=== PATIENT | female | born 1960 | race Hispanic/Latino ===

== ENCOUNTER 2017-12-04 06:33 | Emergency (ER) | payer MEDICAID, OTHER ==
[2017-12-04 06:33] VITALS: BMI 27.3
[2017-12-04 06:45] VITALS: RESP 18; TEMP 98.2
[2017-12-04] MEDS ORDERED: Sodium Chloride 0.9% 1,000 ML IV STA (07:14)
[2017-12-04] MEDS ORDERED: Atrop/Hyosc/Scopal/PB Elixir (120 ml) PO STA (07:15)
[2017-12-04] MEDS ORDERED: Alum-Mag Hydrox-Simethicone Susp (30 mL) PO STA (07:15)
--- NOTE | 2017-12-04 07:24 | ED PDOC ---
Arrival/HPI - General Chief Complaint: Chest Pain Time Seen by Provider: 12/04/17 06:45 Historian: Patient - History of Present Illness Narrative History of Present Illness (Text): 12/04/17 07:05 57 year old female, whose PMH includes hypertension, COPD, TIA, and seizure disorder, who presents to the emergency department complaining of abdominal pain that radiates to her chest for two weeks. Patient reports symptoms being associated with nausea, vomiting, diarrhea, and appetite changes. She also reports having left lower back pain that is worse with movement. Additionally, she complaints of a headache, mainly in the back region. Patient admits to ETOH use 3 days ago and heroin use one day ago. She denies taking her Methadone medication for the past 4 days. PMD: Dr. Ron Time/Duration: > week Symptom Onset: Gradual Symptom Course: Unchanged Quality: Aching Past Medical History - Provider Review Nursing Documentation Reviewed: Yes - Infectious Disease Hx of Infectious Diseases: None - Tetanus Immunization Tetanus Immunization: Unknown - Cardiac Hx Cardiac Arrhythmia: No Hx Congestive Heart Failure: No Hx Hypertension: Yes Hx Mitral Valve Prolapse: No Hx Pacemaker: No Hx Peripheral Edema: No - Pulmonary Hx Asthma: No Hx Bronchitis: No Hx Chronic Obstructive Pulmonary Disease (COPD): Yes Hx Emphysema: No Hx Pneumonia: No Hx Sleep Apnea: No - Neurological Hx Alzheimer's Disease: No Hx Dementia: No Hx Migraine: No Hx Parkinson's Disease: No Hx Seizures: Yes Hx Transient Ischemic Attacks (TIA): Yes - HEENT Hx HEENT Disorder: Yes (USES CONTACTS AND GLASSES) - Renal Hx Renal Disorder: Yes Hx Kidney Stones: No - Endocrine/Metabolic Hx Hyperthyroidism: No Hx Hypothyroidism: No - Hematological/Oncological Hx Anemia: No Hx Sickle Cell Disease: No - Integumentary Hx Dermatological Disorder: No - Musculoskeletal/Rheumatological Hx Arthritis: No Hx Falls: No Hx Fractures: No Hx Osteoporosis: No - Gastrointestinal Hx Crohn's Disease: No Hx Diverticulitis: No Hx Gall Bladder Disease: No Hx Pancreatitis: No - Genitourinary/Gynecological Hx Sexually Transmitted Diseases: No - Psychiatric Hx Anxiety: Yes (ALCOHOL USE) Hx Bipolar Disorder: No Hx Depression: Yes Hx Post Traumatic Stress Disorder: No Hx Schizophrenia: No Hx Substance Use: Yes - Past Surgical History Past Surgical History: No Previous - Surgical History Hx Appendectomy: No Hx Cholecystectomy: No Hx Coronary Stent: No Hx Tonsillectomy: Yes - Anesthesia Hx Anesthesia: Yes Hx Anesthesia Reactions: No Hx Malignant Hyperthermia: No - Suicidal Assessment Feels Threatened In Home Enviroment: No Family/Social History - Physician Review Nursing Documentation Reviewed: Yes Family/Social History: Unknown Family HX Smoking Status: Light Smoker < 10 Cigarettes Daily Hx Alcohol Use: Yes Hx Substance Use: Yes Substance used: methadone Hx Substance Use Treatment: Yes (methadone) Allergies/Home Meds Allergies/Adverse Reactions: Allergies No Known Allergies Allergy (Verified 07/24/17 21:51) Home Medications: Home Meds Medication Instructions Recorded Confirmed Albuterol HFA [Ventolin HFA 90 1 puff INH DAILY 07/24/17 07/24/17 mcg/actuation (8 g)] Methadone [Methadose] 80 mg PO DAILY 07/24/17 07/24/17 Multivitamin [Multi-Vitamin Daily] 1 tab PO DAILY 07/24/17 07/24/17 Propranolol [Inderal] 40 mg PO BID 07/24/17 07/24/17 Review of Systems - Review of Systems Constitutional: absent: Fevers Eyes: absent: Vision Changes ENT: absent: Sore Throat Respiratory: absent: SOB, Cough Cardiovascular: Chest Pain Gastrointestinal: Abdominal Pain, Diarrhea, Nausea, Vomiting, Appetite Changes. absent: Constipation Genitourinary Female: absent: Dysuria, Frequency Musculoskeletal: Back Pain (lower left side) Skin: absent: Rash Neurological: Headache Endocrine: absent: Diaphoresis Physical Exam Vital Signs Reviewed: Yes Vital Signs Temp Pulse Resp BP Pulse Ox 12/04/17 10:00 78 18 150/104 H 95 12/04/17 08:33 82 18 148/104 H 96 12/04/17 06:41 98.2 F 68 18 146/105 H 96 Temperature: Afebrile Blood Pressure: Hypertensive Pulse: Regular Respiratory Rate: Normal Appearance: Positive for: Well-Appearing, Non-Toxic, Comfortable Pain Distress: None Mental Status: Positive for: Alert and Oriented X 3 - Systems Exam Head: Present: Atraumatic, Normocephalic Pupils: Present: PERRL Extroacular Muscles: Present: EOMI Conjunctiva: Present: Normal Mouth: Present: Dry Respiratory/Chest: Present: Clear to Auscultation, Good Air Exchange. No: Respiratory Distress, Accessory Muscle Use, Wheezes, Rales, Retracting, Rhonchi Cardiovascular: Present: Regular Rate and Rhythm, Normal S1, S2. No: Murmurs Abdomen: Present: Tenderness (epigastric), Normal Bowel Sounds, Guarding. No: Distention, Peritoneal Signs, Rebound Back: Present: Normal Inspection. No: CVA Tenderness, Midline Tenderness, Paraspinal Tenderness Upper Extremity: Present: Normal Inspection, Normal ROM, Neurovascularly Intact , Capillary Refill < 2s. No: Cyanosis, Edema Lower Extremity: Present: Normal Inspection, Normal ROM. No: Edema, Tenderness , Swelling Neurological: Present: GCS=15, CN II-XII Intact, Speech Normal, Normal Sensory Function, Other (no tremors) Skin: Present: Warm, Dry, Normal Color. No: Rashes Psychiatric: Present: Alert, Oriented x 3, Normal Insight, Normal Concentration Medical Decision Making ED Course and Treatment: 12/04/17 Impression: 57 year old female with epigastric tenderness and guarding, and dry mucous membrane on exam, complaining of abdominal pain radiating to chest for two weeks. Differential Diagnosis included but are not limited to: gastritis vs. pancreatitis vs. dehydration Plan: -- EKG -- Labs -- Urinalysis -- , Lidocaine, Pepcid, Reglan, Maalox and Sodium Chloride -- Reassess and disposition Progress Notes: 12/04/17 09:35 Chest X-ray: Creator : Spenser Rueda MD COMPARISON: 06/27/2016 FINDINGS: LUNGS: No active pulmonary disease. PLEURA: No significant pleural effusion identified, no pneumothorax apparent. CARDIOVASCULAR: Normal. OSSEOUS STRUCTURES: No significant abnormalities. VISUALIZED UPPER ABDOMEN: Normal. OTHER FINDINGS: None. IMPRESSION: No active disease. 12/04/17 11:22 Patient's labs reviewed. Lipase mildly elevated. Patient has been treated with 1 Liter IVF. She improved with medications and hydration. Patient is tolerating PO fluids. She will follow up with her primary care doctor in 1-2days. - Lab Interpretations Lab Results: 12/04/17 08:00 12/04/17 08:30 Lab Results 12/04/17 08:50: Urine Color Light yellow, Urine Appearance Clear, Urine pH 7.0, Ur Specific [place] 1.010, Urine Protein Negative, Urine Glucose (UA) Negative, Urine Ketones Negative, Urine Blood Negative, Urine Nitrate Negative, Urine Bilirubin Negative, Urine Urobilinogen 0.2, Ur Leukocyte Esterase Negative 12/04/17 08:30: Sodium 142, Potassium 3.9, Chloride 108 H, Carbon Dioxide 24, Anion Gap 14, BUN 4 L, Creatinine 0.5 L, Est GFR ( Amer) > 60, Est GFR ( Non-Af Amer) > 60, Random Glucose 154 H, Calcium 8.9, Total Bilirubin 1.3, AST 104 H, ALT 57 H, Alkaline Phosphatase 156 H, Lactate Dehydrogenase 724 H, Total Creatine Kinase 52, Troponin I < 0.01, Total Protein 8.2, Albumin 3.4, Globulin 4.8, Albumin/Globulin Ratio 0.7 L, Lipase 350 H 12/04/17 08:00: PT 15.9 H, INR 1.37 H, APTT 37.6 H 12/04/17 08:00: WBC 3.3 L D, RBC 4.88, Hgb 15.7, Hct 44.2, MCV 90.6, MCH 32.2, MCHC 35.5, RDW 14.0, Plt Count 73 L, Gran % 59.1, Lymph % (Auto) 21.5 L, [place] % (Auto) 15.2 H, Eos % (Auto) 3.6, Baso % (Auto) 0.6, Gran # 1.95, Lymph # (Auto) 0.7 L, [place] # (Auto) 0.5, Eos # (Auto) 0.1, Baso # (Auto) 0.02 I have reviewed the lab results: Yes - RAD Interpretation Radiology Orders: 12/04/17 07:54 CXR [CHEST PORTABLE] [RAD] Stat - EKG Interpretation Interpreted by ED Physician: Yes Type: 12 lead EKG - Medication Orders Current Medication Orders: Discontinued Medications Al Hydrox/Mg Hydrox/Simethicone (Maalox Plus 30 Ml) 30 ml PO STAT STA Stop: 12/04/17 07:16 Last Admin: 12/04/17 07:51 Dose: 30 ml Belladonna/Phenobarbital ( Elixir) 5 ml PO STAT STA Stop: 12/04/17 07:16 Last Admin: 12/04/17 07:51 Dose: 5 ml Famotidine (Pepcid) 20 mg IVP STAT STA Stop: 12/04/17 07:15 Last Admin: 12/04/17 08:17 Dose: 20 mg IVP Administration Document 12/04/17 08:17 [facility] (Rec: 12/04/17 08:17 [facility] [id number]) Charges for Administration # of IVP Administrations 1 Sodium Chloride (Sodium Chloride 0.9%) 1,000 mls @ 1,000 mls/hr IV .Q1H STA Stop: 12/04/17 08:13 Last Admin: 12/04/17 08:16 Dose: 1,000 mls/hr eMAR Start Stop Document 12/04/17 08:16 [facility] (Rec: 12/04/17 08:17 [facility] [id number]) Intravenous Solution Start Date 12/04/17 Start Time 08:17 End Date 12/04/17 End time 09:17 Total Infusion Time 60 Lidocaine HCl (Lidocaine 2% Viscous) 15 ml PO STAT STA Stop: 12/04/17 07:16 Last Admin: 12/04/17 07:51 Dose: 15 ml Lorazepam (Ativan) 1 mg IVP ONCE ONE PRN Reason: Protocol Stop: 12/04/17 08:15 Last Admin: 12/04/17 08:36 Dose: 1 mg IVP Administration Document 12/04/17 08:36 [facility] (Rec: 12/04/17 08:36 [facility] [id number]) Charges for Administration # of IVP Administrations 1 Metoclopramide HCl (Reglan) 10 mg IVP STAT STA Stop: 12/04/17 07:16 Last Admin: 12/04/17 08:17 Dose: 10 mg IVP Administration Document 12/04/17 08:17 [facility] (Rec: 12/04/17 08:17 [facility] [id number]) Charges for Administration # of IVP Administrations 1 - Scribe Statement The provider has reviewed the documentation as recorded by the Alyssa Parra Provider Scribe Attestation: All medical record entries made by the Scribe were at my direction and personally dictated by me. I have reviewed the chart and agree that the record accurately reflects my personal performance of the history, physical exam, medical decision making, and the department course for this patient. I have also personally directed, reviewed, and agree with the discharge instructions and disposition. Disposition/Present on Arrival - Present on Arrival Any Indicators Present on Arrival: No History of DVT/PE: No History of Uncontrolled Diabetes: No Urinary Catheter: No History of Decub. Ulcer: No History Surgical Site Infection Following: None - Disposition Have Diagnosis and Disposition been Completed?: Yes Diagnosis: Pancreatitis, Back pain, Headache, Dehydration Disposition: HOME/ ROUTINE Disposition Time: 11:00 Patient Plan: Discharge Patient Problems: Current Active Problems Problem Status Onset Back pain Acute Dehydration Acute Headache Acute Pancreatitis Acute Condition: IMPROVED Discharge Instructions (ExitCare): Tension Headache, Pancreatitis (DC) Additional Instructions: Ms Burnette, thank you for letting us take care of you today. Your provider was Dr. Amaro. You were treated for Pancreatitis, Dehydration, Headache. The emergency medical care you received today was directed at your acute symptoms. If you were prescribed any medication, please fill it and take as directed. It may take several days for your symptoms to resolve. Return to the Emergency Department if your symptoms worsen, do not improve, or if you have any other problems. Please contact your doctor or call one of the physicians/clinics you have been referred to that are listed on the Patient Visit Information form that is included in your discharge packet. Bring any paperwork you were given at discharge with you along with any medications you are taking to your follow up visit. Our treatment cannot replace ongoing medical care by a primary care provider (PCP) outside of the emergency department. Thank you for allowing the [facility] team to be part of your care today. If you had an X-Ray or CT scan: A Radiologist will review the ED reading if any change in treatment is needed we will contact you. If you had a blood, urine, or wound culture: It will take several days for the results, if any change in treatment is needed we will contact you. If you had an STI test: It will take 48 hours for the results. Please call after 1 week if you have not heard back. Referrals: Shalini Anand MD [Family Provider] - Follow up with primary Forms: [employer] ([place]ian), WORK NOTE
[2017-12-04 08:24] LABS: BASO # 0.02 K/mm3 (0.0-2.0); BASO % 0.6 % (0.0-3.0); EOS # 0.1 (0.0-0.7); EOS % 3.6 % (1.5-5.0); GRAN # 1.95 (1.4-6.5); GRAN % 59.1 % (50.0-68.0); HEMOGLOBIN 15.7 g/dL (12.0-16.0); LYMPH # 0.7 (1.2-3.4); LYMPH % 21.5 % (22.0-35.0); MEAN CELL VOLUME 90.6 fl (80.0-105.0); MEAN CORPUSCULAR HEMOGLOBIN 32.2 pg (25.0-35.0); MEAN CORPUSCULAR HGB CONC 35.5 g/dl (31.0-37.0); MONO # 0.5 (0.1-0.6); MONO % 15.2 % (1.0-6.0); PLATELET COUNT 73 10^3/uL (120.0-450.0); RBC 4.88 10^6/uL (3.5-6.1); WHITE BLOOD COUNT 3.3 10^3/ul (4.5-11.0)
[2017-12-04 08:39] LABS: INR 1.37 (0.93-1.08); PARTIAL THROMBOPLASTIN TIME 37.6 Seconds (25.1-36.5); PROTHROMBIN TIME 15.9 SECONDS (9.4-12.5)
[2017-12-04 08:47] LABS: ALB/GLOB RATIO 0.7 (1.1-1.8); ALBUMIN 3.4 g/dL (3.0-4.8); ALT/SGPT 57 U/L (7-56); AST/SGOT 104 U/L (14-36); BLOOD UREA NITROGEN 4 mg/dL (7-21); CALCIUM 8.9 mg/dL (8.4-10.5); GFR AFRICAN-AMERICAN > 60; GFR NON-AFRICAN AMERICAN > 60; LIPASE 350 U/L (23-300)
[2017-12-04 08:58] LABS: TROPONIN I < 0.01 ng/mL
[2017-12-04 09:26] LABS: URINE BILIRUBIN NEGATIVE (NEGATIVE); URINE BLOOD NEGATIVE (NEGATIVE); URINE GLUCOSE (UA) NEGATIVE (NEGATIVE); URINE LEUKOCYTE ESTERASE NEGATIVE Leu/uL (NEGATIVE); URINE PROTEIN NEGATIVE mg/dL (<30 mg/dL); URINE UROBILINOGEN 0.2 E.U./dL (<1 E.U./dL)
[2017-12-04 09:27] LABS: URINE APPEARANCE CLEAR (CLEAR); URINE COLOR LIGHT YELLOW (YELLOW)
--- NOTE | 2017-12-04 09:36 | RAD ---
HISTORY: abd / chest pain COMPARISON: 06/27/2016 FINDINGS: LUNGS: No active pulmonary disease. PLEURA: No significant pleural effusion identified, no pneumothorax apparent. CARDIOVASCULAR: Normal. OSSEOUS STRUCTURES: No significant abnormalities. VISUALIZED UPPER ABDOMEN: Normal. OTHER FINDINGS: None. IMPRESSION: No active disease.
[2017-12-04 11:33] VITALS: BP 150/104; PULSE 78; O2SAT 95
--- NOTE | 2017-12-04 17:27 | CARD ---
APPROVED REPORT EKG Measurement Heart [id number] <Conclusion> Normal sinus rhythm Left anterior fascicular block Possible Inferior infarct, age undetermined Anterior infarct, age undetermined Abnormal ECG
== END 2017-12-04 11:40 | disposition home or self-care (01) ==
LOC: ED 06:33
DX: K85.90 Acute pancreatitis without necrosis or infection, unspecified (principal); R51 Headache; E86.0 Dehydration; M54.9 Dorsalgia, unspecified; I10 Essential (primary) hypertension; Z86.73 Personal history of transient ischemic attack (TIA), and cerebral infarction without residual deficits; F17.210 Nicotine dependence, cigarettes, uncomplicated
CPT/HCPCS: 71045; 80053; 81003; 82550; 83615; 83690; 84484; 85025; 85610; 85730; 93005; 96361; 96374; 96375; 99284; J2060; J2765; J7040

== ENCOUNTER 2017-12-14 10:27 | Inpatient (IN) | payer OTHER ==
[2017-12-14 10:40] VITALS: BMI 26.6
--- NOTE | 2017-12-14 10:44 | ED PDOC ---
Arrival/HPI - General Time Seen by Provider: 12/14/17 10:40 Historian: Patient - History of Present Illness Narrative History of Present Illness (Text): 12/14/17 10:44 Marily Burnette is a 57 year old female, whose past medical history includes Stage IV cirrhosis, hepatitis C, alcohol abuse, chronic opiate abuse, esophageal varices, peptic ulcer disease, seizure disorder, CKD, COPD, anxiety, HTN, who presents to the ED complaining of left arm, and left sided HARTMAN since last night. Patient stated while walking down steps at front on his building, part of the step was broken, which caused her to fall. Patient stated she LOC for few seconds. She stated she got up, and she went back home. She stated she has been applying a cold compress on left shoulder, but pain has worsen today. Time/Duration: Other (see hpi) Quality: Aching Context: Home Past Medical History - Provider Review Nursing Documentation Reviewed: Yes - Infectious Disease Hx of Infectious Diseases: None - Tetanus Immunization Tetanus Immunization: Unknown - Cardiac Hx Cardiac Arrhythmia: No Hx Congestive Heart Failure: No Hx Hypertension: Yes Hx Mitral Valve Prolapse: No Hx Pacemaker: No Hx Peripheral Edema: No - Pulmonary Hx Asthma: No Hx Bronchitis: No Hx Chronic Obstructive Pulmonary Disease (COPD): Yes Hx Emphysema: No Hx Pneumonia: No Hx Sleep Apnea: No - Neurological Hx Alzheimer's Disease: No Hx Dementia: No Hx Migraine: No Hx Parkinson's Disease: No Hx Seizures: Yes Hx Transient Ischemic Attacks (TIA): Yes - HEENT Hx HEENT Disorder: Yes (USES CONTACTS AND GLASSES) - Renal Hx Renal Disorder: Yes Hx Kidney Stones: No - Endocrine/Metabolic Hx Hyperthyroidism: No Hx Hypothyroidism: No - Hematological/Oncological Hx Anemia: No Hx Sickle Cell Disease: No - Integumentary Hx Dermatological Disorder: No - Musculoskeletal/Rheumatological Hx Arthritis: No Hx Falls: No Hx Fractures: No Hx Osteoporosis: No - Gastrointestinal Hx Crohn's Disease: No Hx Diverticulitis: No Hx Gall Bladder Disease: No Hx Pancreatitis: No - Genitourinary/Gynecological Hx Sexually Transmitted Diseases: No - Psychiatric Hx Anxiety: Yes (ALCOHOL USE) Hx Bipolar Disorder: No Hx Depression: Yes Hx Post Traumatic Stress Disorder: No Hx Schizophrenia: No Hx Substance Use: Yes - Past Surgical History Past Surgical History: No Previous - Surgical History Hx Appendectomy: No Hx Cholecystectomy: No Hx Coronary Stent: No Hx Tonsillectomy: Yes - Anesthesia Hx Anesthesia: Yes Hx Anesthesia Reactions: No Hx Malignant Hyperthermia: No - Suicidal Assessment Feels Threatened In Home Enviroment: No Family/Social History - Physician Review Nursing Documentation Reviewed: Yes Family/Social History: Other (noncontributory) Smoking Status: Light Smoker < 10 Cigarettes Daily Hx Alcohol Use: Yes Hx Substance Use: Yes Substance used: methadone Hx Substance Use Treatment: Yes (methadone) Allergies/Home Meds Allergies/Adverse Reactions: Allergies No Known Allergies Allergy (Verified 07/24/17 21:51) Home Medications: Home Meds Medication Instructions Recorded Confirmed Propranolol [Inderal] 40 mg PO BID 07/24/17 12/14/17 Methadone [Methadose] 45 mg PO DAILY 12/14/17 Review of Systems - Review of Systems Constitutional: Normal. absent: Fatigue, Weight Change, Fevers, Night Sweats Eyes: Normal ENT: Normal Respiratory: Normal. absent: SOB, Cough Cardiovascular: Normal. absent: Chest Pain, Palpitations Gastrointestinal: Normal. absent: Abdominal Pain, Nausea, Vomiting Genitourinary Female: Normal Musculoskeletal: Other (see hpi) Skin: Normal Neurological: absent: Headache, Dizziness, Focal Weakness, Gait Changes, Speech Changes, Facial Droop, Disequilibrium, Seizure Endocrine: Normal Hemo/Lymphatic: Normal Psychiatric: Normal Physical Exam Vital Signs Temp Pulse Resp BP Pulse Ox 12/14/17 15:05 99.1 F 74 16 183/95 H 96 12/14/17 14:31 98.8 F 74 18 124/48 L 98 12/14/17 12:06 76 18 151/99 H 96 12/14/17 10:45 99.0 F 79 18 126/57 L 96 Temperature: Afebrile Blood Pressure: Normal Pulse: Regular Respiratory Rate: Normal Appearance: Positive for: Well-Appearing, Non-Toxic, Comfortable Pain Distress: None Mental Status: Positive for: Alert and Oriented X 3 - Systems Exam Head: Present: Normocephalic, Ecchymosis, Laceration ((+) healing left supraorbital laceration with mild surrounding ecchymosis) Pupils: Present: PERRL Extroacular Muscles: Present: EOMI. No: Entrapment Conjunctiva: Present: Normal. No: Injected Ears: Present: Normal, NORMAL TM, Other (no hemotympanum) Mouth: Present: Moist Mucous Membranes, Normal Lips, Normal Tounge. No: Drooling Pharnyx: Present: Normal. No: ERYTHEMA, EXUDATE, TONSILS ENLARGED Nose (External): Present: Atraumatic Nose (Internal): Present: Normal Inspection. No: Epistaxis Neck: Present: Normal Range of Motion, Trachea Midline. No: Meningeal Signs, MIDLINE TENDERNESS, Paraspinal Tenderness, Lymphadenopathy Respiratory/Chest: Present: Clear to Auscultation, Good Air Exchange. No: Respiratory Distress, Accessory Muscle Use, Wheezes, Decreased Breath Sounds, Rales, Retracting, Rhonchi, Tender to Palpation Cardiovascular: Present: Regular Rate and Rhythm, Normal S1, S2. No: Murmurs Abdomen: No: Tenderness, Distention, Peritoneal Signs Back: Present: Normal Inspection, Midline Tenderness, Paraspinal Tenderness ( mild b/l paravertebral tenderness. No vertebral step off. No vertebral point tenderness). No: CVA Tenderness Upper Extremity: Present: Normal ROM, Tenderness, Swelling, Neurovascularly Intact, Capillary Refill < 2s, Other ((+) left shoulder appears swollen. (+) left shoulder and proximal arm tenderness. No compartment syndrome.). No: Cyanosis, Edema, Erythema, Temperature Abnormalties, Deformity Lower Extremity: Present: Normal Inspection, NORMAL PULSES, Normal ROM, Neurovascularly Intact, Capillary Refill < 2 s. No: Edema, CALF TENDERNESS Neurological: Present: GCS=15, CN II-XII Intact, Speech Normal, Motor Func Grossly Intact, Normal Sensory Function, Normal Cerebellar Funct, Gait Normal Skin: Present: Warm, Dry, Normal Color. No: Rashes Psychiatric: Present: Alert, Oriented x 3, Normal Insight, Normal Concentration Medical Decision Making ED Course and Treatment: 12/14/17 14:[address] Mcguire Hospitalist regarding humerus fracture with dislocated shoulder. Dr. Bernardo recommended admission, and OR procedure. Patient osbaldo richards was at [address] Mcguire recommended Remote Telemetry. Re-evaluation Time: 14:40 Reassessment Condition: Re-examined, Improving,but remains with symptoms - Lab Interpretations Lab Results: 12/14/17 13:40 12/14/17 13:40 Lab Results 12/14/17 13:40: Blood Type A POSITIVE, Antibody Screen Negative, BBK History Checked Patient has bt 12/14/17 13:40: Alcohol, Quantitative 70 H 12/14/17 13:40: Sodium 134, Potassium 4.3, Chloride 97 L, Carbon Dioxide 24, Anion Gap 17, BUN 10, Creatinine 0.6 L, Est GFR ( Amer) > 60, Est GFR ( Non-Af Amer) > 60, Random Glucose 144 H, Calcium 8.7, Total Bilirubin 2.4 H, AST 135 H D, ALT 66 H, Alkaline Phosphatase 116, Total Protein 9.0 H, Albumin 3.9, Globulin 5.1, Albumin/Globulin Ratio 0.8 L 12/14/17 13:40: WBC 8.7 D, RBC 4.50, Hgb 14.4, Hct 40.7, MCV 90.4, MCH 32.0, MCHC 35.4, RDW 14.0, Plt Count 103 L, MPV 11.8 H, Gran % 73.9 H, Lymph % (Auto) 14.4 L, Culberson % (Auto) 11.5 H, Eos % (Auto) 0.1 L, Baso % (Auto) 0.1, Gran # 6.39 , Lymph # (Auto) 1.3, [place]berson # (Auto) 1.0 H, Eos # (Auto) 0.0, Baso # (Auto) 0.01 12/14/17 12:45: PT 16.7 H, INR 1.44 H, APTT 36.9 H I have reviewed the lab results: Yes Interpretation: No clinic. lab abnormalty - RAD Interpretation Narrative RAD Interpretations (Text): 12/14/17 14:41 PROCEDURE: CT HEAD WITHOUT CONTRAST. HEMORRHAGE: No intracranial hemorrhage. BRAIN: Arteaga-white matter differentiation is preserved. There is no mass, mass effect or abnormal extra-axial fluid collection. There is no territorial infarction. There is a stable perivascular space in the left basal ganglia. VENTRICLES: The ventricles are normal in size, shape and configuration. CALVARIUM: There is no calvarial fracture or extracranial soft tissue swelling. PARANASAL SINUSES: Predominantly clear. MASTOID AIR CELLS: Predominantly clear go. OTHER FINDINGS: None. IMPRESSION: No acute intracranial abnormality. 12/14/17 14:42 PROCEDURE: CT Cervical Spine without contrast FINDINGS: VERTEBRAE: No fracture. Rotary scoliosis identified. No destructive bony lesion. DISCS/SPINAL CANAL/NEURAL FORAMINA: Multilevel degenerative changes C5-6 and C6-7. Discs heights are grossly preserved. PARASPINAL SOFT TISSUES: Unremarkable. OTHER FINDINGS: There is asymmetry in the supraclavicular -scalene region/thoracic inlet on the left which may represent adenopathy. Please refer to axial series 2, images 55- 71. The findings are confirmed on the coronal images. Correlation with physical examination is advised and if clinically indicated contrast-enhanced CT of the thorax is recommended follow-up procedure. The findings were not apparent on a remote CT of the thorax performed 10/29/2014 IMPRESSION: No acute findings with respect to the cervical spine. Left supraclavicular/ scalene mass, follow-up advised as described above including contrast-enhanced CT of the neck, thoracic inlet region. Correlation with physical examination. 12/14/17 14:43 PROCEDURE: CT Lumbar Spine without contrast FINDINGS: VERTEBRAE: There is normal alignment of the lumbar vertebral bodies. There normal lumbar lordosis. There is no acute fracture, spondylolysis or spondylolisthesis. There is diffuse bone demineralization. DISCS/SPINAL CANAL/NEURAL FORAMINA: Evaluation of the, conus medullaris and nerve roots of cauda equina is limited on noncontrast CT examination. Allowing for this there is desiccation of the L4 -5 and L5-S1 discs. L1-2: No large disc herniation, neural foraminal or spinal canal stenosis. L2-3: No large disc herniation, neural foraminal or spinal canal stenosis. L3-4: Diffuse posterior disc bulge without central spinal canal stenosis. And moderate bilateral facet arthropathy contribute to moderate neural foraminal narrowing. L4-5: Diffuse posterior disc bulge indents the ventral thecal sac with mild spinal canal stenosis. Moderate bilateral facet arthropathy contribute to severe neural foraminal narrowing. L5-S1: Diffuse posterior disc bulge without central spinal canal stenosis. Moderate right and severe left facet arthropathy contribute to moderate to severe neural foraminal stenosis, worse on the left. PARASPINAL SOFT TISSUES: The paraspinous soft tissues are normal. OTHER FINDINGS: None. IMPRESSION: 1. No acute fracture, spondylolysis or spondylolisthesis. 2. Multilevel degenerative disc disease, worse at L4-5 with severe bilateral neural foraminal narrowing and mild spinal canal stenosis. Radiology Orders: 12/14/17 10:40 HEAD W/O CONTRAST [CT] Stat 12/14/17 10:41 HUMERUS LT FALL PROTOCOL [RAD] Stat SHOULDER LEFT [RAD] Stat 12/14/17 10:42 CERVICAL SPINE W/O CONTRAST [CT] Stat LUMBAR SPINE W/O CONTRAST [CT] Stat FOREARM LEFT [RAD] Stat - EKG Interpretation Interpreted by ED Physician: Yes (NSR @ [address] changes) Type: 12 lead EKG Comparison: No previous EKG avail. - Medication Orders Current Medication Orders: Discontinued Medications Bupivacaine HCl (Marcaine 0.5%) 2 ml IJ STAT STA Stop: 12/14/17 13:27 Midazolam HCl (Versed Inj) 2 mg IVP STAT STA Stop: 12/14/17 14:08 Last Admin: 12/14/17 14:10 Dose: Morphine Sulfate (Morphine) 4 mg IM STAT STA Stop: 12/14/17 11:04 Last Admin: 12/14/17 11:18 Dose: 4 mg CODY Pain Assessment Document 12/14/17 11:18 JEFFREY (Rec: 12/14/17 11:19 JEFFREY [id number]) Pain Reassessment Is this a pain reassessment? No Sleep Is patient sleeping during reassessment? No Presence of Pain Presence of Pain Yes Pain Scale Used Pain Scale Used Numeric Description Description Intermittent Intensity of Pain at present 10 IM Administration Charges Document 12/14/17 11:18 JEFFREY (Rec: 12/14/17 11:19 JEFFREY [id number]) Charges for Administration # of IM Administrations 1 Re-Assess: MAR Pain Assessment Document 12/14/17 12:18 JEFFREY (Rec: 12/14/17 14:45 JEFFREY [id number]) Pain Reassessment Is this a pain reassessment? Yes Sleep Is patient sleeping during reassessment? No Presence of Pain Presence of Pain Yes Pain Scale Used Pain Scale Used Numeric Description Description Intermittent Intensity of Pain at present 8 Morphine Sulfate (Morphine) 8 mg IVP STAT STA Stop: 12/14/17 12:47 Last Admin: 12/14/17 13:11 Dose: 8 mg MAR Pain Assessment Document 12/14/17 13:11 JEFFREY (Rec: 12/14/17 13:12 JEFFREY [id number]) Pain Reassessment Is this a pain reassessment? No Sleep Is patient sleeping during reassessment? No Presence of Pain Presence of Pain Yes Pain Scale Used Pain Scale Used Numeric Description Description Intermittent Intensity of Pain at present 8 IVP Administration Document 12/14/17 13:11 JEFFREY (Rec: 12/14/17 13:12 JEFFREY [id number]) Charges for Administration # of IVP Administrations 1 Re-Assess: CODY Pain Assessment Document 12/14/17 14:11 JEFFREY (Rec: 12/14/17 14:46 JEFFREY [id number]) Pain Reassessment Is this a pain reassessment? Yes Sleep Is patient sleeping during reassessment? No Presence of Pain Presence of Pain Yes Pain Scale Used Pain Scale Used Numeric Description Description Intermittent Intensity of Pain at present 5 Ondansetron HCl (Zofran Odt) 4 mg PO STAT STA Stop: 12/14/17 11:05 Last Admin: 12/14/17 11:18 Dose: 4 mg Ondansetron HCl (Zofran Odt) 4 mg PO STAT STA Stop: 12/14/17 12:47 Last Admin: 12/14/17 13:12 Dose: 4 mg Tetanus/Reduced Diphtheria/Acell Pertussis (Boostrix Vaccine Inj) 0.5 ml IM .ONCE ONE Stop: 12/14/17 10:50 Last Admin: 12/14/17 11:19 Dose: 0.5 ml Immunization Registry Document 12/14/17 11:19 JEFFREY (Rec: 12/14/17 11:19 JEFFREY [id number]) Immunization Registry Consent Date 07/24/17 Disposition/Present on Arrival - Present on Arrival Any Indicators Present on Arrival: No History of DVT/PE: No History of Uncontrolled Diabetes: No Urinary Catheter: No History Surgical Site Infection Following: None - Disposition Have Diagnosis and Disposition been Completed?: Yes Diagnosis: Shoulder dislocation, Greater tuberosity of humerus fracture, Intractable pain , Alcohol abuse Disposition: HOSPITALIZED Disposition Time: 14:46 Patient Plan: Admission Condition: STABLE
[2017-12-14] MEDS ORDERED: TDAP Vaccine 0.5 mL Syr IM ONE (10:49)
[2017-12-14] MEDS ORDERED: Morphine 4 mg/ml ISec IM STA (11:03)
[2017-12-14] MEDS ORDERED: Morphine 4 mg/ml ISec ONE (11:18)
[2017-12-14] MEDS ORDERED: Morphine 4 mg/ml ISec IVP STA (12:46)
--- NOTE | 2017-12-14 12:47 | CT ---
PROCEDURE: CT HEAD WITHOUT CONTRAST. HISTORY: Headache s/p trauma COMPARISON: 11/25/2015. TECHNIQUE: Axial computed tomography images were obtained through the head/brain without intravenous contrast. Radiation dose: Total exam DLP = 993.12 mGy-cm. This CT exam was performed using one or more of the following dose reduction techniques: Automated exposure control, adjustment of the mA and/or kV according to patient size, and/or use of iterative reconstruction technique. FINDINGS: HEMORRHAGE: No intracranial hemorrhage. BRAIN: Arteaga-white matter differentiation is preserved. There is no mass, mass effect or abnormal extra-axial fluid collection. There is no territorial infarction. There is a stable perivascular space in the left basal ganglia. VENTRICLES: The ventricles are normal in size, shape and configuration. CALVARIUM: There is no calvarial fracture or extracranial soft tissue swelling. PARANASAL SINUSES: Predominantly clear. MASTOID AIR CELLS: Predominantly clear go. OTHER FINDINGS: None. IMPRESSION: No acute intracranial abnormality.
--- NOTE | 2017-12-14 12:59 | CT ---
PROCEDURE: CT Cervical Spine without contrast HISTORY: Posttraumatic pain COMPARISON: 10/29/2014 CT chest abdomen pelvis. No recent cross-sectional imaging studies no plain film radiographs of the neck. TECHNIQUE: Axial computed tomography images were obtained of the cervical spine without the use of intravenous contrast. Coronal and sagittal reformatted images were created and reviewed. Radiation dose: Total exam DLP = 446.51 mGy-cm. This CT exam was performed using one or more of the following dose reduction techniques: Automated exposure control, adjustment of the mA and/or kV according to patient size, and/or use of iterative reconstruction technique. FINDINGS: VERTEBRAE: No fracture. Rotary scoliosis identified. No destructive bony lesion. DISCS/SPINAL CANAL/NEURAL FORAMINA: Multilevel degenerative changes C5-6 and C6-7. Discs heights are grossly preserved. PARASPINAL SOFT TISSUES: Unremarkable. OTHER FINDINGS: There is asymmetry in the supraclavicular -scalene region/thoracic inlet on the left which may represent adenopathy. Please refer to axial series 2, images 55-71. The findings are confirmed on the coronal images. Correlation with physical examination is advised and if clinically indicated contrast-enhanced CT of the thorax is recommended follow-up procedure. The findings were not apparent on a remote CT of the thorax performed 10/29/2014 IMPRESSION: No acute findings with respect to the cervical spine. Left supraclavicular/ scalene mass, follow-up advised as described above including contrast-enhanced CT of the neck, thoracic inlet region. Correlation with physical examination.
--- NOTE | 2017-12-14 13:07 | CT ---
PROCEDURE: CT Lumbar Spine without contrast HISTORY: Pain, s/p fall COMPARISON: None. TECHNIQUE: Axial computed tomography images were obtained of the lumbar spine without the use of intravenous contrast. Coronal and sagittal reformatted images were created and reviewed. Radiation dose: Total exam DLP = 627.41 mGy-cm. This CT exam was performed using one or more of the following dose reduction techniques: Automated exposure control, adjustment of the mA and/or kV according to patient size, and/or use of iterative reconstruction technique. FINDINGS: VERTEBRAE: There is normal alignment of the lumbar vertebral bodies. There normal lumbar lordosis. There is no acute fracture, spondylolysis or spondylolisthesis. There is diffuse bone demineralization. DISCS/SPINAL CANAL/NEURAL FORAMINA: Evaluation of the, conus medullaris and nerve roots of cauda equina is limited on noncontrast CT examination. Allowing for this there is desiccation of the L4-5 and L5-S1 discs. L1-2: No large disc herniation, neural foraminal or spinal canal stenosis. L2-3: No large disc herniation, neural foraminal or spinal canal stenosis. L3-4: Diffuse posterior disc bulge without central spinal canal stenosis. And moderate bilateral facet arthropathy contribute to moderate neural foraminal narrowing. L4-5: Diffuse posterior disc bulge indents the ventral thecal sac with mild spinal canal stenosis. Moderate bilateral facet arthropathy contribute to severe neural foraminal narrowing. L5-S1: Diffuse posterior disc bulge without central spinal canal stenosis. Moderate right and severe left facet arthropathy contribute to moderate to severe neural foraminal stenosis, worse on the left. PARASPINAL SOFT TISSUES: The paraspinous soft tissues are normal. OTHER FINDINGS: None. IMPRESSION: 1. No acute fracture, spondylolysis or spondylolisthesis. 2. Multilevel degenerative disc disease, worse at L4-5 with severe bilateral neural foraminal narrowing and mild spinal canal stenosis.
[2017-12-14 13:17] LABS: INR 1.44 (0.93-1.08); PARTIAL THROMBOPLASTIN TIME 36.9 Seconds (25.1-36.5); PROTHROMBIN TIME 16.7 SECONDS (9.4-12.5)
[2017-12-14] MEDS ORDERED: Bupivacaine 0.5% Inj(30mL) IJ STA (13:26)
--- NOTE | 2017-12-14 13:39 | RAD ---
PROCEDURE: Radiographs of the Left Forearm HISTORY: Pain s/p fall COMPARISON: None available. TECHNIQUE: Frontal and lateral views obtained. FINDINGS: BONES: Bone alignment and mineralization are normal. There is no acute displaced fracture or bone destruction JOINT SPACES: The proximal and distal carpal rows are maintained. The joint spaces are preserved. OTHER FINDINGS: None. IMPRESSION: No acute fracture or dislocation.
--- NOTE | 2017-12-14 13:40 | RAD ---
PROCEDURE: Radiographs of the Left Shoulder HISTORY: pain s/p COMPARISON: No prior. FINDINGS: BONES: There is an acute displaced fracture in the greater tuberosity of the humerus. JOINTS: There is anterior-inferior dislocation of the glenohumeral joint. The acromioclavicular joint is normal. SOFT TISSUES: Normal. OTHER FINDINGS: None. IMPRESSION: Anterior inferior dislocation of the glenohumeral joint and displaced fracture in the greater tuberosity of the humerus.
--- NOTE | 2017-12-14 13:40 | RAD ---
PROCEDURE: Radiographs of the left humerus. HISTORY: pain s/p fall COMPARISON: None. FINDINGS: BONES: There is an acute displaced fracture in the greater tuberosity of the humerus. There is diffuse bone demineralization. There is anterior-inferior dislocation of the glenohumeral joint. SOFT TISSUES: Normal. OTHER FINDINGS: None. IMPRESSION: Anterior inferior dislocation of the glenohumeral joint an acute displaced fracture in the greater tuberosity of the humerus.
[2017-12-14] MEDS ORDERED: Lidocaine 1% Inj (20ml) ONE (13:51)
[2017-12-14] MEDS ORDERED: Midazolam 2 MG/2 ML VIAL IVP STA (14:07)
[2017-12-14 14:09] LABS: BASO # 0.01 K/mm3 (0.0-2.0); BASO % 0.1 % (0.0-3.0); EOS % 0.1 % (1.5-5.0); GRAN # 6.39 (1.4-6.5); GRAN % 73.9 % (50.0-68.0); HEMOGLOBIN 14.4 g/dL (12.0-16.0); LYMPH # 1.3 (1.2-3.4); LYMPH % 14.4 % (22.0-35.0); MEAN CELL VOLUME 90.4 fl (80.0-105.0); MEAN CORPUSCULAR HGB CONC 35.4 g/dl (31.0-37.0); MEAN PLATELET VOLUME 11.8 fl (7.0-11.0); MONO % 11.5 % (1.0-6.0); RBC 4.5 10^6/uL (3.5-6.1); WHITE BLOOD COUNT 8.7 10^3/ul (4.5-11.0)
[2017-12-14 14:18] LABS: ALB/GLOB RATIO 0.8 (1.1-1.8); ALBUMIN 3.9 g/dL (3.0-4.8); ALT/SGPT 66 U/L (7-56); AST/SGOT 135 U/L (14-36); BLOOD UREA NITROGEN 10 mg/dL (7-21); CALCIUM 8.7 mg/dL (8.4-10.5); GFR AFRICAN-AMERICAN > 60; GFR NON-AFRICAN AMERICAN > 60
--- NOTE | 2017-12-14 15:04 | RAD ---
HISTORY: admission COMPARISON: 12/04/2017. FINDINGS: LUNGS: The lungs are hyperinflated and there is peribronchial thickening with chronic changes in both lungs. PLEURA: No significant pleural effusion identified, no pneumothorax apparent. CARDIOVASCULAR: Normal. OSSEOUS STRUCTURES: No significant abnormalities. VISUALIZED UPPER ABDOMEN: Normal. OTHER FINDINGS: None. IMPRESSION: No acute findings.
[2017-12-14] MEDS ORDERED: Midazolam 2 MG/2 ML VIAL ONE (15:15)
[2017-12-14] MEDS ORDERED: Propofol 10 mg/ml Inj (20 ML) ONE ×3 (15:15→15:57)
--- NOTE | 2017-12-14 15:44 | CP.PCM.HP ---
<Carlos Hernandez - Last Filed: 12/14/17 15:32> History of Present Illness - History of Present Illness History of Present Illness: CC: Left upper extremity pain HPI: Patient is a 57 year old female with past medical history that includes cirrhosis, HCV, seizure disorder, CKD, COPD, anxiety, depression, HTN, chronic thrombocytopenia, seizure, chronic opiate abuse and esophageal varicies who presented to [facility] with fall and left upper extremity pain. Patient presented to [facility] s/p fall earlier in the afternoon. Patient reports mechanical fall while going down a set of stairs. Patient reports using hand railing and loosing consciousness and falling with trauma to her left upper extremity and head. Patient reported having difficulty moving her left arm and noticed some bleeding from her left side of her head secondary to cut above left eye secondary to fall. Patient reports drinking earlier in the morning at 3 am on day of presentation. Patient admits to recent heroin use and currently follows a methadone clinic in [facility]. Patient denies previous loss of consciousness. Patient denies neurological deficit, chest pain, shortness of breath, abdominal pain, leg pain. Patient denies fever, chills, nausea, vomiting. ED imaging: In ED patient had Head CT showing no acute intracranial abnormalities. CT Cervical spine showing asymmetry in the supraclavicular -scalene region/ thoracic inlet on the left which may represent adenopathy. Please refer to axial series 2, images 55-71. The findings are confirmed on the coronal images. Correlation with physical examination is advised and if clinically indicated contrast-enhanced CT of the thorax is recommended follow-up procedure. The findings were not apparent on a remote CT of the thorax performed 10/29/2014. CT lumbar spine showing No acute findings with respect to the cervical spine. Left supraclavicular/ scalene mass, follow-up advised as described above including contrast-enhanced CT of the neck, thoracic inlet region. Correlation with physical examination. Discs/Spinal canal/neural foramina showed no acute fracture, spondylolysis or spondylolisthesis, multilevel degenerative disc diseases, worse at L4-L5 with severe b/l neural formainal narrowing and mild spinal canal stenosis. PMHx: cirrhosis, hep C, seizure disorder, CKD, COPD, anxiety, HTN, esophageal varicies PSHx: tonsillectomy Social Hx: denies ETOH, hx of heroine abuse, currently on methadone, smokes cigarettes occasionally Fam Hx: CAD ALL: NKDA Meds: - Methadone 45 (confirmed with methadone clinic) - Propranolol - Vitamin D Pharmacy: [facility], called and confirmed Methadone Clinic: [facility] in [facility] Present on Admission - Present on Admission Any Indicators Present on Admission: No Review of Systems - Review of Systems All systems: reviewed and no additional remarkable complaints except (as mentioned in HPI) Past Patient History - Infectious Disease Hx of Infectious Diseases: None - Tetanus Immunizations Tetanus Immunization: Unknown - Past Medical History & Family History Past Medical History?: Yes - Past Social History Smoking Status: Light Smoker < 10 Cigarettes Daily Alcohol: Social Drugs: Opiates - CARDIAC Hx Cardia Arrhythmia: No Hx Congestive Heart Failure: No Hx Hypertension: Yes Hx Mitral Valve Prolapse: No Hx Pacemaker: No Hx Peripheral Edema: No - PULMONARY Hx Asthma: No Hx Bronchitis: No Hx Chronic Obstructive Pulmonary Disease (COPD): Yes Hx Emphysema: No Hx Pneumonia: No Hx Sleep Apnea: No - NEUROLOGICAL Hx Alzheimer's Disease: No Hx Dementia: No Hx Migraine: No Hx Parkinson's Disease: No Hx Seizures: Yes Hx Transient Ischemic Attacks (TIA): Yes - HEENT Hx HEENT Problems: Yes (USES CONTACTS AND GLASSES) - RENAL Hx Chronic Kidney Disease: Yes Hx Kidney Stones: No - ENDOCRINE/METABOLIC Hx Hyperthyroidism: No Hx Hypothyroidism: No - HEMATOLOGICAL/ONCOLOGICAL Hx Anemia: No Hx Sickle Cell Disease: No - INTEGUMENTARY Hx Dermatological Problems: No - MUSCULOSKELETAL/RHEUMATOLOGICAL Hx Arthritis: No Hx Falls: No Hx Fractures: No Hx Osteoporosis: No - GASTROINTESTINAL Hx Crohn's Disease: No Hx Diverticulitis: No Hx Gall Bladder Disease: No Hx Pancreatitis: No - GENITOURINARY/GYNECOLOGICAL Hx Sexually Transmitted Disorders: No - PSYCHIATRIC Hx Anxiety: Yes (ALCOHOL USE) Hx Bipolar Disorder: No Hx Depression: Yes Hx Post Traumatic Stress Disorder: No Hx Schizophrenia: No Hx Substance Use: Yes - SURGICAL HISTORY Hx Appendectomy: No Hx Cholecystectomy: No Hx Coronary Stent: No Hx Tonsillectomy: Yes - ANESTHESIA Hx Anesthesia: Yes Hx Anesthesia Reactions: No Hx Malignant Hyperthermia: No Meds Allergies/Adverse Reactions: Allergies Allergy/AdvReac Type Severity Reaction Status Date / Time No Known Allergies Allergy Verified 12/14/17 19:40 Physical Exam - Head Exam Head Exam: ATRAUMATIC, NORMAL INSPECTION, NORMOCEPHALIC - Eye Exam Eye Exam: EOMI, PERRL - ENT Exam ENT Exam: Mucous Membranes Moist - Respiratory Exam Respiratory Exam: Clear to Auscultation Bilateral, NORMAL BREATHING PATTERN. absent: Rhonchi, Wheezes - Cardiovascular Exam Cardiovascular Exam: REGULAR RHYTHM, +S1, +S2 - GI/Abdominal Exam GI & Abdominal Exam: Normal Bowel Sounds, Soft. absent: Tenderness - Extremities Exam Additional comments: tenderness to motion of left upper extremity, gaurding upon exam, left arm medially rotated and flexed - Neurological Exam Neurological exam: Alert, Oriented x3 - Psychiatric Exam Psychiatric exam: Normal Affect, Normal Mood - Skin Skin Exam: Dry, Warm Additional comments: bruising on lower extremities, 2 cm cut with dried blood above left eyebrow Results - Vital Signs Recent Vital Signs: Last Vital Signs Temp 99.1 F 12/14/17 15:05 Pulse 74 12/14/17 15:05 Resp 16 12/14/17 15:05 BP 183/95 H 12/14/17 15:05 Pulse Ox 96 12/14/17 15:05 - Labs Result Diagrams: 12/14/17 13:40 12/14/17 13:40 Assessment & Plan - Assessment and Plan (Free Text) Assessment: Patient is a 57 year old female with past medical history that includes cirrhosis, HCV, seizure disorder, CKD, COPD, anxiety, depression, HTN, chronic thrombocytopenia, seizure, chronic opiate abuse and esophageal varicies who presented to [facility] with left arm pain secondary to humeral fracture. Patient scheduled to go to OR with Dr. Ndiaye. Patient will be admitted to remote telemetry s/p surgery for ETOH withdrawal and transaminitis. Plan: Left humeral fracture Details: - Left arm xray showing anterior dislocation from GH join, humeral fracture at greater tuberosity Plan: - OR today with Dr. Ndiaye - f/u surgery ETOH withdrawl Details: - Patient with chronic history - ETOH elevated in ED - Last drink at 3 AM today Plan: - CIWA protocol - Fall precautions - Seizure precautions - Ativan PRN - ETOH cessation counseling Elevated LFT Details: - History of HCV, Cirrhosis - AST and ALT elevated Plan: - IVF - Protonix - ETOH cessation counseling Substance abuse Details: - History of heroin use - Methadone outpatient, confirmed dosage Plan: - Restart methadone s/p surgery - Substance abuse cessation education Hx of GI bleed Details: - Previous admission with esophageal bleeds - Wakes up with dry blood in mouth at times Plan: - f/u labs, monitor clinically - Protonix GI PPX: protonix DVT ppx: SCDS Case and plan reviewed with attending - Date & Time Date: 12/14/17 Time: 15:49 <Maude Mcguire - Last Filed: 12/19/17 13:15> Results - Vital Signs Recent Vital Signs: Last Vital Signs Temp 98.7 F 12/19/17 07:39 Pulse 71 12/19/17 09:25 Resp 20 12/19/17 07:39 BP 131/81 12/19/17 09:25 Pulse Ox 94 L 12/19/17 07:39 - Labs Result Diagrams: 12/19/17 06:00 12/19/17 06:00 Labs: Laboratory Results - last 24 hr 12/19/17 12/19/17 06:00 06:00 WBC 5.5 RBC 3.54 Hgb 11.3 L Hct 33.3 L MCV 94.1 MCH 31.9 MCHC 33.9 RDW 14.6 H Plt Count 73 L MPV 10.7 Sodium 138 Potassium 3.9 Chloride 101 Carbon Dioxide 29 Anion Gap 12 BUN 10 Creatinine 0.6 L Est GFR ( Amer) > 60 Est GFR (Non-Af Amer) > 60 Random Glucose 94 Calcium 8.3 L Total Bilirubin 2.8 H AST 94 H ALT 56 Alkaline Phosphatase 99 Total Protein 7.0 Albumin 2.9 L Globulin 4.1 Albumin/Globulin Ratio 0.7 L Attending/Attestation - Attestation I have personally seen and examined this patient.: Yes I have fully participated in the care of the patient.: Yes I have reviewed all pertinent clinical information: Yes Notes (Text): 12/19/17 13:12 Medical record note made by the resident after discussion with my direction and input after the patient was personally seen and examined by me. I have reviewed the chart and agree that the record accurately reflects by personal performance of the history, physical exam, data review, and medical decision-making, in the course for the patient. I have also personally directed the plan of care. 57 year old female with PMH of chronic liver disease, alcohol abuse cirrhosis , HCV, seizure disorder, COPD, anxiety, depression, chronic thrombocytopenia, chronic opiate abuse and esophageal varicies is admitted with H/O fall while she was intoxicated with alcohol , Left arm xray showing anterior dislocation from GH join, humeral fracture at greater tuberosityPatient scheduled to go to OR with Dr. Ndiaye. Patient will be admitted to remote telemetry s/p surgery for ETOH withdrawal and elevated LFT . Management plan was discussed in detail with patient. Education was provided.
[2017-12-14] MEDS ORDERED: Esmolol 100 mg/10ml Inj IV ONE (15:47)
[2017-12-14] MEDS ORDERED: Albuterol-Ipratrop 3 mg / 0.5 (3 ml) UD IH PRN (16:09)
[2017-12-14] MEDS ORDERED: HYDROmorphone 0.5 mg/0.5 ml ISec SC PRN (16:32)
--- NOTE | 2017-12-14 20:02 | CARD ---
APPROVED REPORT EKG Measurement Heart [id number] <Conclusion> Normal sinus rhythm Left axis deviation Inferior infarct, age undetermined Cannot rule out Anterior infarct, age undetermined Abnormal ECG
--- NOTE | 2017-12-14 20:03 | CON ---
DATE: 12/14/2017 ORTHOPEDIC CONSULT HISTORY OF PRESENT ILLNESS: A 57-year-old female, methadone user, dislocated and fractured her left shoulder. Dominant arm is the right arm. She did this about 10 o'clock last night, did not come to ER till today. This morning, it is approximately 3 p.m. now. So, we tried to do a closed reduction of her left shoulder dislocation, which is anterior with a fracture of greater tuberosity and no evidence of a surgical neck fracture. So we pulled on the dislocated lt shoulderafter we gave her a Xylocaine block for her glenohumeral joint by a_ hematoma block waited 10 minutes, but she is not being cooperative to allow me to reduce the retraction and rotation. So after I spend half an hour doing this, we are going to take her to the OR for anesthesia by the anesthesiologist to get complete relaxation and hopefully when we reduce at the greater tuberosity, I will come back and place; if not, then she will need an open reduction and internal fixation. So, we will take her to the OR and do an attempted closed reduction and possible open reduction if we do not get it back. Hopefully, I could send her home today and she has had strict instructions to stay in the sling for 4-6 weeks and to avoid heavy medications. FINAL DIAGNOSES: Left shoulder fracture dislocation with displaced greater tuberosity fracture and an anterior dislocation of glenohumeral joint. We are going to get her ready for OR today, which is 12/14/2017. I told her about risks and complication where she may end up with a repeat dislocation or some numbness or paresis of the extremity and arthritis. Spenser Ndiaye DO AG
[2017-12-14] MEDS: Albuterol-Ipratrop 3 mg / 0.5 (3 ml) UD IH SCH (21:22)
[2017-12-14] MEDS ORDERED: Pneumococcal 23-Valent Vaccine IM ONE (23:06)
--- NOTE | 2017-12-14 23:38 | CP.PCM.PN ---
Subjective - Date & Time of Evaluation Date of Evaluation: 12/14/17 Time of Evaluation: 23:35 - Subjective Subjective: # 24 angiocath was inserted in right forearm. Dx: Poor venous access. Objective - Vital Signs/Intake and Output Vital Signs (last 24 hours): Temp Pulse Resp BP Pulse Ox 98 F 72 18 108/86 98 12/14/17 22:39 12/14/17 22:39 12/14/17 22:39 12/14/17 22:39 12/14/17 18:37 Intake and Output: 12/14/17 12/15/17 18:59 06:59 Intake Total 420 Output Total 1100 Balance -680 - Medications Medications: Current Medications Albuterol/Ipratropium (Duoneb 3 Mg/0.5 Mg (3 Ml) Ud) 3 ml IH [id number] [facility] Last Admin: 12/14/17 21:22 Dose: 3 ml Albuterol/Ipratropium (Duoneb 3 Mg/0.5 Mg (3 Ml) Ud) 3 ml IH Q2H PRN PRN Reason: Shortness of Breath Lorazepam (Ativan) 1 mg IVP Q4H PRN; Protocol PRN Reason: Symptoms of alcohol withdrawl Lorazepam (Ativan) 1 mg IVP Q6H PRN; Protocol PRN Reason: Anxiety Methadone HCl (Methadone) 40 mg PO DAILY [facility] Methadone HCl (Methadone) 5 mg PO DAILY [facility] Propranolol HCl (Inderal) 40 mg PO BID [facility] Last Admin: 12/14/17 18:27 Dose: 40 mg Tramadol HCl (Ultram) 50 mg PO Q6H PRN PRN Reason: Pain, moderate (4-7) Last Admin: 12/14/17 21:07 Dose: 50 mg - Labs Labs: PT 16.7 SECONDS (9.4-12.5) H 12/14/17 12:45 INR 1.44 (0.93-1.08) H 12/14/17 12:45 APTT 36.9 Seconds (25.1-36.5) H 12/14/17 12:45
--- NOTE | 2017-12-15 00:45 | CON ---
she dislocated and DATE: ORTHOPEDIC CONSULTATION IN THE EMERGENCY ROOM OF [facility] HISTORY OF PRESENT ILLNESS: The patient is a 57-year-old female, methadone-dependent person,the dislocation was anterior and trh greater tuberosity was fractured and displaced and the injury to the lt shoulder in the evening of 12/13/2017, dislocation is impossible to reposition in the ER. She is acting out from being a drug addict in the methadone, alcohol user. She has good neurovascular status. She does have a displaced fracture of greater tuberosity with anterior dislocation of her shoulder. Despite hematoma block with Xylocaine, I cannot reduce in the ER, so I am going to have to bring her to the OR for general anesthesia and then hopefully, she listens to postop instructions, so she does not dislocate it again. FINAL DIAGNOSES: Fracture dislocation of the left shoulder with displaced greater tuberosity. Told that she may need surgery at the greater tuberosity, does not come back in place, although reduction is not successful in the OR which we are going to do now at approximately 2 pm for 12/14/2017. Spenser Ndiaye DO MTDKourtney
[2017-12-15] MEDS: Albuterol-Ipratrop 3 mg / 0.5 (3 ml) UD IH SCH ×4 (02:15→20:02)
[2017-12-15 08:03] LABS: HEMOGLOBIN 13.1 g/dL (12.0-16.0); MEAN CELL VOLUME 90.5 fl (80.0-105.0); MEAN CORPUSCULAR HGB CONC 35.3 g/dl (31.0-37.0); MEAN PLATELET VOLUME 11.6 fl (7.0-11.0); RBC 4.1 10^6/uL (3.5-6.1); RED CELL DISTRIBUTION WIDTH 14.2 % (11.5-14.5); WHITE BLOOD COUNT 8.6 10^3/ul (4.5-11.0)
[2017-12-15 08:19] LABS: ALB/GLOB RATIO 0.8 (1.1-1.8); ALBUMIN 3.4 g/dL (3.0-4.8); ALT/SGPT 61 U/L (7-56); AST/SGOT 113 U/L (14-36); BLOOD UREA NITROGEN 11 mg/dL (7-21); CALCIUM 8.4 mg/dL (8.4-10.5); GFR AFRICAN-AMERICAN > 60; GFR NON-AFRICAN AMERICAN > 60
--- NOTE | 2017-12-15 08:35 | OP ---
PROCEDURE DATE: 12/14/2017 PREOPERATIVE DIAGNOSES: Irreducible anterior dislocation with a fracture of greater tuberosity, left non-dominant shoulder, unsuccessfully attempted reduction in the ER 12 hours post dislocation which occurred on 12/13/2017. POSTOPERATIVE DIAGNOSES: Irreducible anterior dislocation with a fracture of greater tuberosity, left non-dominant shoulder, unsuccessfully attempted reduction in the ER 12 hours post dislocation which occurred on 12/13/2017. PROCEDURES: IV sedation and anesthesia, OR, and closed reduction with manipulation of the left shoulder until we got a successful reduction both AP and axillary views, and put on a left shoulder immobilizer. DESCRIPTION OF PROCEDURE: Patient was taken to the OR, left shoulder approached with the help of the C-arm after IV sedation, and we manipulated the arm under the IV sedation until we felt a little pop, because it has been out over 12 hours, so it was difficult to appreciate a good reduction. Until we got x-rays ensuring good position, we manipulated the arms to be dislocating again, moved it around, put her in a shoulder immobilizer to hold her in neutral position and internal rotation, and to avoid external rotation and abduction. The patient will be admitted under the Medical Service and followed closely. Plan to keep her in a sling for 4 to 6 weeks, because not only about the dislocation, we are worried about the fracture which appeared to go in good position, but could always re-dislocate and the fracture can always displace, but right now, it is in a decent position. The patient was taken to recovery room in good condition. Spenser Ndiaye DO
--- NOTE | 2017-12-15 09:00 | RAD ---
PROCEDURE: Intraoperative Fluoroscopy. HISTORY: Close reduction left shoulder reduction of LT shoulder FINDINGS: Fluoroscopic assistance was provided. 17.9 seconds fluoroscopy time utilized during this procedure. Radiation dose = 0.19255 mGy-cm. . Please refer to the operative report from [facility]RNA[facility] Becerr[facility].
--- NOTE | 2017-12-15 14:01 | PN ---
DATE: 12/15/2017 FIRST DAY POST REDUCTION REPORT She had a fracture dislocation of the left shoulder on 12/14/2017. Because we could not do it in the ER and she had a successful reduction done in the OR. Today, she is sitting up in bed. Nurse tells me that she removed her left arm from the sling, but I put her back in again and then I told her she needs to stand it for at least 4 to 6 weeks because she does have a fracture of greater tuberosity and a dislocation that is susceptible to come out on the left shoulder again because it was in dislocated state for over 12 hours. I told her it could be dislocated again if she does not comply with the post reduction procedures, which are the standard sling and not to move her arm inappropriately. We will follow her closely. She is in the hospital for "other medical issues" and we will follow her while she is here and I will see her in the office in 10 days or two weeks to make sure status quo with left shoulder dislocation with a fracture, because if the fracture moves out of place, she may require surgery. Spenser Ndiaye DO
--- NOTE | 2017-12-15 17:21 | CP.PCM.PN ---
<Carlos Hernandez - Last Filed: 12/15/17 17:17> Subjective - Date & Time of Evaluation Date of Evaluation: 12/15/17 Time of Evaluation: 07:45 - Subjective Subjective: Patient seen and examined this AM. No acute events reported overnight. Patient s /p left humerus reduction. Patient reports continued pain secondary to surgery. Objective - Vital Signs/Intake and Output Vital Signs (last 24 hours): Temp Pulse Resp BP Pulse Ox 98.8 F 60 20 140/90 98 12/15/17 08:18 12/15/17 14:00 12/15/17 08:18 12/15/17 09:53 12/14/17 18:37 Intake and Output: 12/15/17 12/15/17 06:59 18:59 Intake Total 600 480 Output Total 1500 400 Balance -900 80 - Medications Medications: Current Medications Albuterol/Ipratropium (Duoneb 3 Mg/0.5 Mg (3 Ml) Ud) 3 ml IH [id number] [facility] Last Admin: 12/15/17 13:16 Dose: 3 ml Albuterol/Ipratropium (Duoneb 3 Mg/0.5 Mg (3 Ml) Ud) 3 ml IH Q2H PRN PRN Reason: Shortness of Breath Lorazepam (Ativan) 1 mg IVP Q4H PRN; Protocol PRN Reason: Symptoms of alcohol withdrawl Lorazepam (Ativan) 1 mg IVP Q6H PRN; Protocol PRN Reason: Anxiety Last Admin: 12/15/17 08:37 Dose: 1 mg Methadone HCl (Methadone) 40 mg PO DAILY [facility] Last Admin: 12/15/17 09:52 Dose: 40 mg Methadone HCl (Methadone) 5 mg PO DAILY [facility] Last Admin: 12/15/17 09:53 Dose: 5 mg Propranolol HCl (Inderal) 40 mg PO BID [facility] Last Admin: 12/15/17 09:53 Dose: 40 mg Tramadol HCl (Ultram) 50 mg PO Q6H PRN PRN Reason: Pain, moderate (4-7) Last Admin: 12/15/17 04:18 Dose: 50 mg - Labs Labs: 12/15/17 07:30 12/15/17 07:30 PT 16.7 SECONDS (9.4-12.5) H 12/14/17 12:45 INR 1.44 (0.93-1.08) H 12/14/17 12:45 APTT 36.9 Seconds (25.1-36.5) H 12/14/17 12:45 - Constitutional Appears: No Acute Distress - Head Exam Head Exam: ATRAUMATIC, NORMAL INSPECTION, NORMOCEPHALIC - Eye Exam Eye Exam: EOMI, PERRL - Respiratory Exam Respiratory Exam: Clear to Ausculation Bilateral, NORMAL BREATHING PATTERN. absent: Rhonchi, Wheezes - Cardiovascular Exam Cardiovascular Exam: REGULAR RHYTHM, +S1, +S2 - GI/Abdominal Exam GI & Abdominal Exam: Soft, Normal Bowel Sounds. absent: Tenderness - Neurological Exam Neurological Exam: Alert, Awake, Oriented x3 Additional comments: motor and sensory grossly intact - Psychiatric Exam Psychiatric exam: Normal Affect, Normal Mood - Skin Skin Exam: Dry, Warm Assessment and Plan - Assessment and Plan (Free Text) Assessment: Patient is a 57 year old female with past medical history that includes cirrhosis, HCV, seizure disorder, CKD, COPD, anxiety, depression, HTN, chronic thrombocytopenia, seizure, chronic opiate abuse and esophageal varicies who presented to [facility] ED with left arm pain secondary to humeral fracture. Patient is s/p left humerus reduction with Dr. Ndiaye. Plan: Left humeral fracture Details: - Left arm xray showing anterior dislocation from GH join, humeral fracture at greater tuberosity - S/p left humerus reduction - Neurovascular intact Plan: - Dr. Ndiaye cleared for discharge - Monitor clinically, patient to follow outpatient ETOH withdrawl Details: - Patient with chronic history - ETOH elevated in ED - Last drink at 3 AM yesterday - No acute events overnight Plan: - CIWA protocol - Fall precautions - Seizure precautions - Ativan PRN - ETOH cessation counseling Elevated LFT Details: - History of HCV, Cirrhosis - AST and ALT elevated - Trending downward Plan: - IVF - Protonix - ETOH cessation counseling Substance abuse Details: - History of heroin use - Methadone outpatient, confirmed dosage Plan: - Restart methadone s/p surgery - Substance abuse cessation education Hx of GI bleed Details: - Previous admission with esophageal bleeds - Wakes up with dry blood in mouth at times Plan: - f/u labs, monitor clinically - Protonix GI PPX: protonix DVT ppx: SCDS Case and plan reviewed with attending <Maude Mcguire - Last Filed: 12/19/17 13:20> Objective - Vital Signs/Intake and Output Vital Signs (last 24 hours): Temp Pulse Resp BP Pulse Ox 98.7 F 71 20 131/81 94 L 12/19/17 07:39 12/19/17 09:25 12/19/17 07:39 12/19/17 09:25 12/19/17 07:39 Intake and Output: 12/19/17 12/19/17 06:59 18:59 Intake Total 1020 Balance 1020 - Medications Medications: Current Medications Albuterol/Ipratropium (Duoneb 3 Mg/0.5 Mg (3 Ml) Ud) 3 ml IH [id number] [facility] Last Admin: 12/19/17 08:07 Dose: 3 ml Albuterol/Ipratropium (Duoneb 3 Mg/0.5 Mg (3 Ml) Ud) 3 ml IH Q2H PRN PRN Reason: Shortness of Breath Famotidine (Pepcid) 20 mg PO 1000,2200 [facility] Last Admin: 12/19/17 09:26 Dose: 20 mg Lorazepam (Ativan) 1 mg IVP Q6H PRN; Protocol PRN Reason: Anxiety Last Admin: 12/18/17 08:23 Dose: 1 mg Lorazepam (Ativan) 1 mg PO Q6 PRN; Protocol PRN Reason: Anxiety Last Admin: 12/19/17 05:09 Dose: 1 mg Methadone HCl (Methadone) 40 mg PO DAILY [facility] Last Admin: 12/19/17 09:24 Dose: 40 mg Methadone HCl (Methadone) 5 mg PO DAILY [facility] Last Admin: 12/19/17 09:24 Dose: 5 mg Propranolol HCl (Inderal) 40 mg PO BID [facility] Last Admin: 12/19/17 09:25 Dose: 40 mg Tramadol HCl (Ultram) 50 mg PO Q6H PRN PRN Reason: Pain, moderate (4-7) Last Admin: 12/19/17 03:30 Dose: 50 mg - Labs Labs: 12/19/17 06:00 12/19/17 06:00 PT 16.7 SECONDS (9.4-12.5) H 12/14/17 12:45 INR 1.44 (0.93-1.08) H 12/14/17 12:45 APTT 36.9 Seconds (25.1-36.5) H 12/14/17 12:45 Attending/Attestation - Attestation I have personally seen and examined this patient.: Yes I have fully participated in the care of the patient.: Yes I have reviewed all pertinent clinical information, including history, physical exam and plan: Yes Notes (Text): 12/19/17 13:17 Medical record note made by the resident after discussion with my direction and input after the patient was personally seen and examined by me. I have reviewed the chart and agree that the record accurately reflects by personal performance of the history, physical exam, data review, and medical decision-making, in the course for the patient. I have also personally directed the plan of care. 57 year old female with PMH of chronic liver disease, alcohol abuse cirrhosis , HCV, seizure disorder, COPD, anxiety, depression, chronic thrombocytopenia, chronic opiate abuse and esophageal varicies is admitted with H/O fall while she was intoxicated with alcohol , Left arm xray showing anterior dislocation from GN join, humeral fracture at greater tuberosity.Patient is SP reduction of dislocated shoulder by Dr. Ndiaye.Patient is still having alcohol withdrawal.We will continue monitoring with [facility]. Management plan was discussed in detail with patient. Education was provided.
[2017-12-16] MEDS: Albuterol-Ipratrop 3 mg / 0.5 (3 ml) UD IH SCH ×4 (02:25→20:29)
[2017-12-16 08:20] LABS: HEMOGLOBIN 12.6 g/dL (12.0-16.0); MEAN CELL VOLUME 92.3 fl (80.0-105.0); MEAN CORPUSCULAR HEMOGLOBIN 32.2 pg (25.0-35.0); MEAN CORPUSCULAR HGB CONC 34.9 g/dl (31.0-37.0); MEAN PLATELET VOLUME 11.3 fl (7.0-11.0); RBC 3.91 10^6/uL (3.5-6.1); RED CELL DISTRIBUTION WIDTH 14.3 % (11.5-14.5); WHITE BLOOD COUNT 7.5 10^3/ul (4.5-11.0)
[2017-12-16 08:29] LABS: ALB/GLOB RATIO 0.7 (1.1-1.8); ALBUMIN 2.9 g/dL (3.0-4.8); ALT/SGPT 50 U/L (7-56); AST/SGOT 97 U/L (14-36); BLOOD UREA NITROGEN 10 mg/dL (7-21); CALCIUM 8.3 mg/dL (8.4-10.5); GFR AFRICAN-AMERICAN > 60; GFR NON-AFRICAN AMERICAN > 60
--- NOTE | 2017-12-16 13:41 | CP.PCM.PN ---
<Carlos Hernandez - Last Filed: 12/16/17 18:09> Subjective - Date & Time of Evaluation Date of Evaluation: 12/16/17 Time of Evaluation: 13:36 - Subjective Subjective: Patient seen and evaluated in AM. Patient reprots pain with left shoulder. Denies tremors, sweats, chills, hallucinations, withdrawal symptoms. Patient reports pain is managed appropriately. Objective - Vital Signs/Intake and Output Vital Signs (last 24 hours): Temp Pulse Resp BP Pulse Ox 98.2 F 67 18 125/87 96 12/16/17 08:07 12/16/17 08:07 12/16/17 08:07 12/16/17 09:48 12/16/17 08:07 Intake and Output: 12/16/17 12/16/17 06:59 18:59 Intake Total 780 Output Total 650 Balance 130 - Medications Medications: Current Medications Albuterol/Ipratropium (Duoneb 3 Mg/0.5 Mg (3 Ml) Ud) 3 ml IH [id number] [facility] Last Admin: 12/16/17 13:04 Dose: 3 ml Albuterol/Ipratropium (Duoneb 3 Mg/0.5 Mg (3 Ml) Ud) 3 ml IH Q2H PRN PRN Reason: Shortness of Breath Famotidine (Pepcid) 20 mg PO 1000,2200 [facility] Lorazepam (Ativan) 1 mg IVP Q4H PRN; Protocol PRN Reason: Symptoms of alcohol withdrawl Last Admin: 12/16/17 05:20 Dose: 1 mg Lorazepam (Ativan) 1 mg IVP Q6H PRN; Protocol PRN Reason: Anxiety Last Admin: 12/16/17 09:46 Dose: 1 mg Methadone HCl (Methadone) 45 mg PO DAILY [facility] Last Admin: 12/16/17 09:48 Dose: 45 mg Propranolol HCl (Inderal) 40 mg PO BID [facility] Last Admin: 12/16/17 09:48 Dose: 40 mg Tramadol HCl (Ultram) 50 mg PO Q6H PRN PRN Reason: Pain, moderate (4-7) Last Admin: 12/16/17 09:59 Dose: 50 mg - Labs Labs: 12/16/17 08:00 12/16/17 08:00 PT 16.7 SECONDS (9.4-12.5) H 12/14/17 12:45 INR 1.44 (0.93-1.08) H 12/14/17 12:45 APTT 36.9 Seconds (25.1-36.5) H 12/14/17 12:45 - Constitutional Appears: Non-toxic - Head Exam Head Exam: ATRAUMATIC, NORMAL INSPECTION, NORMOCEPHALIC - Eye Exam Eye Exam: EOMI, PERRL - Neck Exam Neck Exam: Full ROM - Respiratory Exam Respiratory Exam: Clear to Ausculation Bilateral, NORMAL BREATHING PATTERN. absent: Wheezes - Cardiovascular Exam Cardiovascular Exam: REGULAR RHYTHM, +S1, +S2 - GI/Abdominal Exam GI & Abdominal Exam: Soft, Normal Bowel Sounds. absent: Tenderness - Extremities Exam Extremities Exam: Normal Inspection Additional comments: Left upper extremity immobilized by surgical sling, patient with pain with movement and plapation of left arm - Back Exam Back Exam: NORMAL INSPECTION. absent: vertebral tenderness - Neurological Exam Neurological Exam: Alert, Awake, Oriented x3 - Psychiatric Exam Psychiatric exam: Normal Affect, Normal Mood - Skin Skin Exam: Dry, Warm Assessment and Plan - Assessment and Plan (Free Text) Assessment: Patient is a 57 year old female with past medical history that includes cirrhosis, HCV, seizure disorder, CKD, COPD, anxiety, depression, HTN, chronic thrombocytopenia, seizure, chronic opiate abuse and esophageal varicies who presented to [facility] ED with left arm pain secondary to humeral fracture. Patient is s/p left humerus reduction with Dr. Ndiaye. Plan: Left humeral fracture Details: - Left arm xray showing anterior dislocation from GH join, humeral fracture at greater tuberosity - S/p left humerus reduction - Neurovascular intact Plan: - Dr. Ndiaye cleared for discharge - Monitor clinically, patient to follow outpatient - Continue with PT ETOH withdrawl Details: - Patient with chronic history - ETOH elevated in ED - Last drink at 3 AM yesterday - No acute events overnight Plan: - CIWA protocol - Fall precautions - Seizure precautions - Ativan PRN - ETOH cessation counseling Elevated LFT Details: - History of HCV, Cirrhosis - AST and ALT elevated on admission - Trending downward Plan: - IVF - Protonix - ETOH cessation counseling Thrombocytopenia Details: - Chronic history - Plt 103 on admission, trending down over past two days - Patient with chronic liver disease Plan: - Avoid thrombocytopenic toxic drugs - Monitor Substance abuse Details: - History of heroin use - Methadone outpatient with [facility] in [place] - Patient reportedly with suspicious drug seeking activity witness in room by PCP Plan: - Continue methadone with gradual increase - Substance abuse cessation education - Patient visitors restricted Hx of GI bleed Details: - Previous admission with esophageal bleeds - Wakes up with dry blood in mouth at times Plan: - f/u labs, monitor clinically - Protonix GI PPX: protonix DVT ppx: SCDS Case and plan reviewed with attending <Maude Mcguire - Last Filed: 12/19/17 13:22> Objective - Vital Signs/Intake and Output Vital Signs (last 24 hours): Temp Pulse Resp BP Pulse Ox 98.7 F 71 20 131/81 94 L 12/19/17 07:39 12/19/17 09:25 12/19/17 07:39 12/19/17 09:25 12/19/17 07:39 Intake and Output: 12/19/17 12/19/17 06:59 18:59 Intake Total 1020 Balance 1020 - Medications Medications: Current Medications Albuterol/Ipratropium (Duoneb 3 Mg/0.5 Mg (3 Ml) Ud) 3 ml IH [id number] [facility] Last Admin: 12/19/17 08:07 Dose: 3 ml Albuterol/Ipratropium (Duoneb 3 Mg/0.5 Mg (3 Ml) Ud) 3 ml IH Q2H PRN PRN Reason: Shortness of Breath Famotidine (Pepcid) 20 mg PO 1000,2200 [facility] Last Admin: 12/19/17 09:26 Dose: 20 mg Lorazepam (Ativan) 1 mg IVP Q6H PRN; Protocol PRN Reason: Anxiety Last Admin: 12/18/17 08:23 Dose: 1 mg Lorazepam (Ativan) 1 mg PO Q6 PRN; Protocol PRN Reason: Anxiety Last Admin: 12/19/17 05:09 Dose: 1 mg Methadone HCl (Methadone) 40 mg PO DAILY [facility] Last Admin: 12/19/17 09:24 Dose: 40 mg Methadone HCl (Methadone) 5 mg PO DAILY [facility] Last Admin: 12/19/17 09:24 Dose: 5 mg Oxycodone HCl (Oxycodone Immediate Release Tab) 5 mg PO Q6H PRN PRN Reason: Pain, severe (8-10) Propranolol HCl (Inderal) 40 mg PO BID [facility] Last Admin: 12/19/17 09:25 Dose: 40 mg - Labs Labs: 12/19/17 06:00 12/19/17 06:00 PT 16.7 SECONDS (9.4-12.5) H 12/14/17 12:45 INR 1.44 (0.93-1.08) H 12/14/17 12:45 APTT 36.9 Seconds (25.1-36.5) H 12/14/17 12:45 Attending/Attestation - Attestation I have personally seen and examined this patient.: Yes I have fully participated in the care of the patient.: Yes I have reviewed all pertinent clinical information, including history, physical exam and plan: Yes Notes (Text): 12/19/17 13:21 Medical record note made by the resident after discussion with my direction and input after the patient was personally seen and examined by me. I have reviewed the chart and agree that the record accurately reflects by personal performance of the history, physical exam, data review, and medical decision-making, in the course for the patient. I have also personally directed the plan of care.
[2017-12-17] MEDS: Albuterol-Ipratrop 3 mg / 0.5 (3 ml) UD IH SCH ×4 (01:42→19:21)
[2017-12-17 07:18] LABS: HEMOGLOBIN 11.7 g/dL (12.0-16.0); MEAN CELL VOLUME 92.4 fl (80.0-105.0); MEAN CORPUSCULAR HEMOGLOBIN 31.7 pg (25.0-35.0); MEAN CORPUSCULAR HGB CONC 34.3 g/dl (31.0-37.0); MEAN PLATELET VOLUME 11.1 fl (7.0-11.0); RBC 3.69 10^6/uL (3.5-6.1); RED CELL DISTRIBUTION WIDTH 14.2 % (11.5-14.5); WHITE BLOOD COUNT 7.8 10^3/ul (4.5-11.0)
[2017-12-17 07:53] LABS: ALB/GLOB RATIO 0.7 (1.1-1.8); ALT/SGPT 50 U/L (7-56); AST/SGOT 94 U/L (14-36); BLOOD UREA NITROGEN 8 mg/dL (7-21); CALCIUM 8.3 mg/dL (8.4-10.5); GFR AFRICAN-AMERICAN > 60; GFR NON-AFRICAN AMERICAN > 60
--- NOTE | 2017-12-17 15:33 | CP.PCM.PN ---
<Carlos Hernandez - Last Filed: 12/17/17 15:24> Subjective - Date & Time of Evaluation Date of Evaluation: 12/17/17 Time of Evaluation: 15:24 - Subjective Subjective: Patient seen and examined this AM. Patient reports continued left arm discomfort. Patient to work with PT. Denies tremors, sweats, palpitations. Denies chest pain, shortness of breath, nausea, vomiting, fever, chills. Objective - Vital Signs/Intake and Output Vital Signs (last 24 hours): Temp Pulse Resp BP Pulse Ox 98.2 F 79 16 113/81 99 12/17/17 08:24 12/17/17 14:00 12/17/17 08:24 12/17/17 09:05 12/17/17 08:24 Intake and Output: 12/17/17 12/17/17 06:59 18:59 Intake Total 900 780 Output Total 1900 1150 Balance -1000 -370 - Medications Medications: Current Medications Albuterol/Ipratropium (Duoneb 3 Mg/0.5 Mg (3 Ml) Ud) 3 ml IH [id number] [facility] Last Admin: 12/17/17 14:16 Dose: 3 ml Albuterol/Ipratropium (Duoneb 3 Mg/0.5 Mg (3 Ml) Ud) 3 ml IH Q2H PRN PRN Reason: Shortness of Breath Famotidine (Pepcid) 20 mg PO 1000,2200 [facility] Last Admin: 12/17/17 09:06 Dose: 20 mg Lorazepam (Ativan) 1 mg IVP Q6H PRN; Protocol PRN Reason: Anxiety Last Admin: 12/17/17 09:06 Dose: 1 mg Methadone HCl (Methadone) 45 mg PO DAILY [facility] Propranolol HCl (Inderal) 40 mg PO BID [facility] Last Admin: 12/17/17 09:05 Dose: 40 mg Tramadol HCl (Ultram) 50 mg PO Q6H PRN PRN Reason: Pain, moderate (4-7) Last Admin: 12/17/17 05:40 Dose: 50 mg - Labs Labs: 12/17/17 06:45 12/17/17 06:45 PT 16.7 SECONDS (9.4-12.5) H 12/14/17 12:45 INR 1.44 (0.93-1.08) H 12/14/17 12:45 APTT 36.9 Seconds (25.1-36.5) H 12/14/17 12:45 - Constitutional Appears: No Acute Distress - Head Exam Head Exam: ATRAUMATIC, NORMAL INSPECTION, NORMOCEPHALIC - Eye Exam Eye Exam: EOMI, PERRL - Respiratory Exam Respiratory Exam: Clear to Ausculation Bilateral, NORMAL BREATHING PATTERN. absent: Rhonchi, Wheezes - Cardiovascular Exam Cardiovascular Exam: REGULAR RHYTHM, +S1, +S2 - GI/Abdominal Exam GI & Abdominal Exam: Soft, Normal Bowel Sounds - Extremities Exam Additional comments: left upper extremity immobilized in orthopedic sling - Back Exam Back Exam: NORMAL INSPECTION - Neurological Exam Neurological Exam: Alert, Awake, Oriented x3 - Psychiatric Exam Psychiatric exam: Normal Affect, Normal Mood - Skin Skin Exam: Dry, Warm Assessment and Plan - Assessment and Plan (Free Text) Assessment: Patient is a 57 year old female with past medical history that includes cirrhosis, HCV, seizure disorder, CKD, COPD, anxiety, depression, HTN, chronic thrombocytopenia, seizure, chronic opiate abuse and esophageal varicies who presented to [facility] ED with left arm pain secondary to humeral fracture. Patient is s/p left humerus reduction with Dr. Ndiaye. Plan: Left humeral fracture Details: - Left arm xray showing anterior dislocation from GH join, humeral fracture at greater tuberosity - S/p left humerus reduction - Neurovascular intact Plan: - Dr. Ndiaye cleared for discharge - Monitor clinically, patient to follow outpatient - Continue with PT, awaiting [facility] vs. home ETOH withdrawl Details: - Patient with chronic history - ETOH elevated in ED - Last drink at 3 AM yesterday - No acute events overnight Plan: - CIWA protocol - Fall precautions - Seizure precautions - Ativan PRN - ETOH cessation counseling Thrombocytopenia Details: - Chronic history - Plt 103 on admission - Today improvement from previous 24 hours - Patient with chronic liver disease Plan: - Avoid thrombocytopenic toxic drugs - Monitor Substance abuse Details: - History of heroin use - Methadone outpatient with [facility] in [place] - Patient reportedly with suspicious drug seeking activity witness in room by PCP Plan: - Continue methadone with gradual increase - Substance abuse cessation education - Patient visitors restricted GI PPX: protonix DVT ppx: SCDS Case and plan reviewed with attending <Maude Mcguire - Last Filed: 12/19/17 13:22> Objective - Vital Signs/Intake and Output Vital Signs (last 24 hours): Temp Pulse Resp BP Pulse Ox 98.7 F 71 20 131/81 94 L 12/19/17 07:39 12/19/17 09:25 12/19/17 07:39 12/19/17 09:25 12/19/17 07:39 Intake and Output: 12/19/17 12/19/17 06:59 18:59 Intake Total 1020 Balance 1020 - Medications Medications: Current Medications Albuterol/Ipratropium (Duoneb 3 Mg/0.5 Mg (3 Ml) Ud) 3 ml IH [id number] [facility] Last Admin: 12/19/17 08:07 Dose: 3 ml Albuterol/Ipratropium (Duoneb 3 Mg/0.5 Mg (3 Ml) Ud) 3 ml IH Q2H PRN PRN Reason: Shortness of Breath Famotidine (Pepcid) 20 mg PO 1000,2200 [facility] Last Admin: 12/19/17 09:26 Dose: 20 mg Lorazepam (Ativan) 1 mg IVP Q6H PRN; Protocol PRN Reason: Anxiety Last Admin: 12/18/17 08:23 Dose: 1 mg Lorazepam (Ativan) 1 mg PO Q6 PRN; Protocol PRN Reason: Anxiety Last Admin: 12/19/17 05:09 Dose: 1 mg Methadone HCl (Methadone) 40 mg PO DAILY [facility] Last Admin: 12/19/17 09:24 Dose: 40 mg Methadone HCl (Methadone) 5 mg PO DAILY [facility] Last Admin: 12/19/17 09:24 Dose: 5 mg Oxycodone HCl (Oxycodone Immediate Release Tab) 5 mg PO Q6H PRN PRN Reason: Pain, severe (8-10) Propranolol HCl (Inderal) 40 mg PO BID [facility] Last Admin: 12/19/17 09:25 Dose: 40 mg - Labs Labs: 12/19/17 06:00 12/19/17 06:00 PT 16.7 SECONDS (9.4-12.5) H 12/14/17 12:45 INR 1.44 (0.93-1.08) H 12/14/17 12:45 APTT 36.9 Seconds (25.1-36.5) H 12/14/17 12:45 Attending/Attestation - Attestation I have personally seen and examined this patient.: Yes I have fully participated in the care of the patient.: Yes I have reviewed all pertinent clinical information, including history, physical exam and plan: Yes Notes (Text): 12/19/17 13:22 Medical record note made by the resident after discussion with my direction and input after the patient was personally seen and examined by me. I have reviewed the chart and agree that the record accurately reflects by personal performance of the history, physical exam, data review, and medical decision-making, in the course for the patient. I have also personally directed the plan of care.
[2017-12-18] MEDS: Albuterol-Ipratrop 3 mg / 0.5 (3 ml) UD IH SCH ×4 (01:04→20:35)
[2017-12-18 06:27] LABS: HEMOGLOBIN 11.2 g/dL (12.0-16.0); MEAN CELL VOLUME 93.8 fl (80.0-105.0); MEAN CORPUSCULAR HEMOGLOBIN 31.5 pg (25.0-35.0); MEAN CORPUSCULAR HGB CONC 33.6 g/dl (31.0-37.0); MEAN PLATELET VOLUME 10.8 fl (7.0-11.0); RBC 3.55 10^6/uL (3.5-6.1); RED CELL DISTRIBUTION WIDTH 14.7 % (11.5-14.5); WHITE BLOOD COUNT 6.7 10^3/ul (4.5-11.0)
[2017-12-18 07:05] LABS: ALB/GLOB RATIO 0.7 (1.1-1.8); ALBUMIN 2.8 g/dL (3.0-4.8); ALT/SGPT 51 U/L (7-56); AST/SGOT 88 U/L (14-36); BLOOD UREA NITROGEN 12 mg/dL (7-21); CALCIUM 8.3 mg/dL (8.4-10.5); GFR AFRICAN-AMERICAN > 60; GFR NON-AFRICAN AMERICAN > 60
--- NOTE | 2017-12-18 12:12 | RAD ---
PROCEDURE: Radiographs of the Left Shoulder HISTORY: lt sh dislocation COMPARISON: 12/14/2017 left shoulder radiographs FINDINGS: BONES: Avulsion fracture of the greater tuberosity. JOINTS: Preserved glenohumeral relationship. SOFT TISSUES: Diffuse soft tissue swelling. OTHER FINDINGS: None. IMPRESSION: Status post reduction of left shoulder dislocation. Avulsed fracture of the greater tuberosity.
--- NOTE | 2017-12-18 13:30 | CP.PCM.PN ---
<Carlos Hernandez - Last Filed: 12/18/17 13:26> Subjective - Date & Time of Evaluation Date of Evaluation: 12/18/17 Time of Evaluation: 13:29 - Subjective Subjective: Patient seen and examined this AM. Continues to complain of pain associated with surgery. Patient reports heightened anxiety associated with pain and methadone dosing. Patient continues to work with PT. Objective - Vital Signs/Intake and Output Vital Signs (last 24 hours): Temp Pulse Resp BP Pulse Ox 98.8 F 71 20 113/76 100 12/18/17 06:00 12/18/17 10:32 12/18/17 06:00 12/18/17 10:32 12/18/17 06:00 Intake and Output: 12/18/17 12/18/17 06:59 18:59 Intake Total 1080 Output Total 1300 Balance -220 - Medications Medications: Current Medications Albuterol/Ipratropium (Duoneb 3 Mg/0.5 Mg (3 Ml) Ud) 3 ml IH [id number] [facility] Last Admin: 12/18/17 07:41 Dose: 3 ml Albuterol/Ipratropium (Duoneb 3 Mg/0.5 Mg (3 Ml) Ud) 3 ml IH Q2H PRN PRN Reason: Shortness of Breath Famotidine (Pepcid) 20 mg PO 1000,2200 [facility] Last Admin: 12/18/17 10:32 Dose: 20 mg Lorazepam (Ativan) 1 mg IVP Q6H PRN; Protocol PRN Reason: Anxiety Last Admin: 12/18/17 08:23 Dose: 1 mg Methadone HCl (Methadone) 40 mg PO DAILY [facility] Last Admin: 12/18/17 11:32 Dose: 40 mg Methadone HCl (Methadone) 5 mg PO DAILY [facility] Last Admin: 12/18/17 10:33 Dose: 5 mg Propranolol HCl (Inderal) 40 mg PO BID [facility] Last Admin: 12/18/17 10:32 Dose: 40 mg Tramadol HCl (Ultram) 50 mg PO Q6H PRN PRN Reason: Pain, moderate (4-7) Last Admin: 12/18/17 10:33 Dose: 50 mg - Labs Labs: 12/18/17 05:30 12/18/17 05:30 PT 16.7 SECONDS (9.4-12.5) H 12/14/17 12:45 INR 1.44 (0.93-1.08) H 12/14/17 12:45 APTT 36.9 Seconds (25.1-36.5) H 12/14/17 12:45 - Constitutional Appears: Agitated - Head Exam Head Exam: ATRAUMATIC, NORMAL INSPECTION, NORMOCEPHALIC - Eye Exam Eye Exam: EOMI, PERRL - Respiratory Exam Respiratory Exam: Clear to Ausculation Bilateral, NORMAL BREATHING PATTERN. absent: Rhonchi, Wheezes - Cardiovascular Exam Cardiovascular Exam: REGULAR RHYTHM, +S1, +S2 - GI/Abdominal Exam GI & Abdominal Exam: Soft, Normal Bowel Sounds. absent: Firm, Guarding, Tenderness - Extremities Exam Extremities Exam: Normal Inspection. absent: Calf Tenderness Additional comments: Left upper extremity held in immobilizing sling, showing mild brusiin from previous trauma - Neurological Exam Neurological Exam: Alert, Awake Neuro motor strength exam: Left Upper Extremity: 4 (likely secondary to surgery ), Right Upper Extremity: 5, Left Lower Extremity: 5, Right Lower Extremity: 5 Additional comments: Motor and sensory grossly intact, patient left upper extremity is neurovascularly intact - Psychiatric Exam Psychiatric exam: Anxious, Normal Mood - Skin Skin Exam: Dry, Warm Assessment and Plan - Assessment and Plan (Free Text) Assessment: Patient is a 57 year old female with past medical history that includes cirrhosis, HCV, seizure disorder, CKD, COPD, anxiety, depression, HTN, chronic thrombocytopenia, seizure, chronic opiate abuse and esophageal varicies who presented to [facility] with left arm pain secondary to humeral fracture. Patient is s/p left humerus reduction with Dr. Ndiaye. Patient continues to work with PT. Plan: Left humeral fracture Details: - Left arm xray showing anterior dislocation from GH join, humeral fracture at greater tuberosity - S/p left humerus reduction - Neurovascular intact Plan: - Dr. Ndiaye cleared for discharge - Monitor clinically, patient to follow outpatient - Continue with PT, recommending [facility] - Awaiting placement for [facility] Thrombocytopenia Details: - Chronic history - Plt 103 on admission - Plt is stable at this time - Patient with chronic liver disease Plan: - Avoid thrombocytopenic toxic drugs - Monitor Substance abuse Details: - History of heroin use - Methadone outpatient with [facility] in [place] Plan: - Continue methadone - Substance abuse cessation education - Patient visitors restricted - Alcohol cessation dispo: Patient having difficulty with placement for [facility] due to previous medical history and insurance, patient reports no help at home, unsafe discharge at this time GI PPX: protonix DVT ppx: SCDS Case and plan reviewed with attending <Maude Mcguire - Last Filed: 12/19/17 13:23> Objective - Vital Signs/Intake and Output Vital Signs (last 24 hours): Temp Pulse Resp BP Pulse Ox 98.7 F 71 20 131/81 94 L 12/19/17 07:39 12/19/17 09:25 12/19/17 07:39 12/19/17 09:25 12/19/17 07:39 Intake and Output: 12/19/17 12/19/17 06:59 18:59 Intake Total 1020 Balance 1020 - Medications Medications: Current Medications Albuterol/Ipratropium (Duoneb 3 Mg/0.5 Mg (3 Ml) Ud) 3 ml IH [id number] [facility] Last Admin: 12/19/17 08:07 Dose: 3 ml Albuterol/Ipratropium (Duoneb 3 Mg/0.5 Mg (3 Ml) Ud) 3 ml IH Q2H PRN PRN Reason: Shortness of Breath Famotidine (Pepcid) 20 mg PO 1000,2200 [facility] Last Admin: 12/19/17 09:26 Dose: 20 mg Lorazepam (Ativan) 1 mg IVP Q6H PRN; Protocol PRN Reason: Anxiety Last Admin: 12/18/17 08:23 Dose: 1 mg Lorazepam (Ativan) 1 mg PO Q6 PRN; Protocol PRN Reason: Anxiety Last Admin: 12/19/17 05:09 Dose: 1 mg Methadone HCl (Methadone) 40 mg PO DAILY [facility] Last Admin: 12/19/17 09:24 Dose: 40 mg Methadone HCl (Methadone) 5 mg PO DAILY [facility] Last Admin: 12/19/17 09:24 Dose: 5 mg Oxycodone HCl (Oxycodone Immediate Release Tab) 5 mg PO Q6H PRN PRN Reason: Pain, severe (8-10) Propranolol HCl (Inderal) 40 mg PO BID [facility] Last Admin: 12/19/17 09:25 Dose: 40 mg - Labs Labs: 12/19/17 06:00 12/19/17 06:00 PT 16.7 SECONDS (9.4-12.5) H 12/14/17 12:45 INR 1.44 (0.93-1.08) H 12/14/17 12:45 APTT 36.9 Seconds (25.1-36.5) H 12/14/17 12:45 Attending/Attestation - Attestation I have personally seen and examined this patient.: Yes I have fully participated in the care of the patient.: Yes I have reviewed all pertinent clinical information, including history, physical exam and plan: Yes Notes (Text): 12/19/17 13:23 Medical record note made by the resident after discussion with my direction and input after the patient was personally seen and examined by me. I have reviewed the chart and agree that the record accurately reflects by personal performance of the history, physical exam, data review, and medical decision-making, in the course for the patient. I have also personally directed the plan of care.
[2017-12-19] MEDS: Albuterol-Ipratrop 3 mg / 0.5 (3 ml) UD IH SCH ×4 (04:36→19:52)
[2017-12-19 06:50] LABS: HEMOGLOBIN 11.3 g/dL (12.0-16.0); MEAN CELL VOLUME 94.1 fl (80.0-105.0); MEAN CORPUSCULAR HEMOGLOBIN 31.9 pg (25.0-35.0); MEAN CORPUSCULAR HGB CONC 33.9 g/dl (31.0-37.0); MEAN PLATELET VOLUME 10.7 fl (7.0-11.0); RBC 3.54 10^6/uL (3.5-6.1); RED CELL DISTRIBUTION WIDTH 14.6 % (11.5-14.5); WHITE BLOOD COUNT 5.5 10^3/ul (4.5-11.0)
[2017-12-19 06:59] LABS: ALB/GLOB RATIO 0.7 (1.1-1.8); ALBUMIN 2.9 g/dL (3.0-4.8); ALT/SGPT 56 U/L (7-56); AST/SGOT 94 U/L (14-36); BLOOD UREA NITROGEN 10 mg/dL (7-21); CALCIUM 8.3 mg/dL (8.4-10.5); GFR AFRICAN-AMERICAN > 60; GFR NON-AFRICAN AMERICAN > 60
--- NOTE | 2017-12-19 07:33 | CP.PCM.PN ---
<Carlos Hernandez - Last Filed: 12/19/17 10:52> Subjective - Date & Time of Evaluation Date of Evaluation: 12/19/17 Time of Evaluation: 07:29 - Subjective Subjective: Patient seen and examined this AM. No acute events overnight. Patient continues to express pain of her left shoulder. She is sleeping upon entering room, resting comfortably. Patient denies chest pain, abdominal pain. Objective - Vital Signs/Intake and Output Vital Signs (last 24 hours): Temp Pulse Resp BP Pulse Ox 98.4 F 101 H 18 110/76 99 12/18/17 16:00 12/18/17 17:38 12/18/17 16:00 12/18/17 17:38 12/18/17 16:00 Intake and Output: 12/19/17 12/19/17 06:59 18:59 Intake Total 1020 Balance 1020 - Medications Medications: Current Medications Albuterol/Ipratropium (Duoneb 3 Mg/0.5 Mg (3 Ml) Ud) 3 ml IH [id number] [facility] Last Admin: 12/19/17 04:36 Dose: 3 ml Albuterol/Ipratropium (Duoneb 3 Mg/0.5 Mg (3 Ml) Ud) 3 ml IH Q2H PRN PRN Reason: Shortness of Breath Famotidine (Pepcid) 20 mg PO 1000,2200 [facility] Last Admin: 12/18/17 21:23 Dose: 20 mg Lorazepam (Ativan) 1 mg IVP Q6H PRN; Protocol PRN Reason: Anxiety Last Admin: 12/18/17 08:23 Dose: 1 mg Lorazepam (Ativan) 1 mg PO Q6 PRN; Protocol PRN Reason: Anxiety Last Admin: 12/19/17 05:09 Dose: 1 mg Methadone HCl (Methadone) 40 mg PO DAILY [facility] Last Admin: 12/18/17 11:32 Dose: 40 mg Methadone HCl (Methadone) 5 mg PO DAILY [facility] Last Admin: 12/18/17 10:33 Dose: 5 mg Propranolol HCl (Inderal) 40 mg PO BID [facility] Last Admin: 12/18/17 17:38 Dose: 40 mg Tramadol HCl (Ultram) 50 mg PO Q6H PRN PRN Reason: Pain, moderate (4-7) Last Admin: 12/19/17 03:30 Dose: 50 mg - Labs Labs: 12/19/17 06:00 12/19/17 06:00 PT 16.7 SECONDS (9.4-12.5) H 12/14/17 12:45 INR 1.44 (0.93-1.08) H 12/14/17 12:45 APTT 36.9 Seconds (25.1-36.5) H 12/14/17 12:45 - Constitutional Appears: No Acute Distress - Head Exam Head Exam: ATRAUMATIC, NORMAL INSPECTION, NORMOCEPHALIC - Eye Exam Eye Exam: EOMI, PERRL - Neck Exam Neck Exam: absent: Lymphadenopathy, Tenderness - Respiratory Exam Respiratory Exam: Clear to Ausculation Bilateral, NORMAL BREATHING PATTERN. absent: Rhonchi, Wheezes - Cardiovascular Exam Cardiovascular Exam: REGULAR RHYTHM, +S1, +S2 - GI/Abdominal Exam GI & Abdominal Exam: Soft, Normal Bowel Sounds - Extremities Exam Extremities Exam: Normal Inspection. absent: Calf Tenderness, Pedal Edema - Neurological Exam Neurological Exam: Alert, Awake, Oriented x3 - Psychiatric Exam Psychiatric exam: Normal Mood - Skin Skin Exam: Dry, Warm Assessment and Plan - Assessment and Plan (Free Text) Assessment: Patient is a 57 year old female with past medical history that includes cirrhosis, HCV, seizure disorder, CKD, COPD, anxiety, depression, HTN, chronic thrombocytopenia, seizure, chronic opiate abuse and esophageal varicies who presented to [facility] with left arm pain secondary to humeral fracture. Patient is s/p left humerus reduction with Dr. Ndiaye. Patient continues to work with PT, awaiting [facility] Plan: Left humeral fracture Details: - Left arm xray showing anterior dislocation from GH join, humeral fracture at greater tuberosity - S/p left humerus reduction - Neurovascular intact Plan: - Dr. Ndiaye cleared for discharge - Monitor clinically, patient to follow outpatient - Continue with PT, recommending [facility] - Awaiting thursday for [facility] Thrombocytopenia Details: - Chronic history - Plt 103 on admission - Plt is stable over past 48 hours - Patient with chronic liver disease Plan: - Avoid thrombocytopenic toxic drugs Substance abuse Details: - History of heroin use - Methadone outpatient with [facility] in [place] Plan: - Continue methadone 45mg - Substance abuse cessation education - Patient visitors restricted - Alcohol cessation dispo: SW spoke with admissions in [place] [facility] and able to accomodate pt and methadone tx starting on thursday GI PPX: protonix DVT ppx: SCDS Case and plan reviewed with attending <Maude Mcguire - Last Filed: 12/19/17 13:27> Objective - Vital Signs/Intake and Output Vital Signs (last 24 hours): Temp Pulse Resp BP Pulse Ox 98.7 F 71 20 131/81 94 L 12/19/17 07:39 12/19/17 09:25 12/19/17 07:39 12/19/17 09:25 12/19/17 07:39 Intake and Output: 12/19/17 12/19/17 06:59 18:59 Intake Total 1020 Balance 1020 - Medications Medications: Current Medications Albuterol/Ipratropium (Duoneb 3 Mg/0.5 Mg (3 Ml) Ud) 3 ml IH [id number] [facility] Last Admin: 12/19/17 08:07 Dose: 3 ml Albuterol/Ipratropium (Duoneb 3 Mg/0.5 Mg (3 Ml) Ud) 3 ml IH Q2H PRN PRN Reason: Shortness of Breath Famotidine (Pepcid) 20 mg PO 1000,2200 [facility] Last Admin: 12/19/17 09:26 Dose: 20 mg Lorazepam (Ativan) 1 mg IVP Q6H PRN; Protocol PRN Reason: Anxiety Last Admin: 12/18/17 08:23 Dose: 1 mg Lorazepam (Ativan) 1 mg PO Q6 PRN; Protocol PRN Reason: Anxiety Last Admin: 12/19/17 05:09 Dose: 1 mg Methadone HCl (Methadone) 40 mg PO DAILY [facility] Last Admin: 12/19/17 09:24 Dose: 40 mg Methadone HCl (Methadone) 5 mg PO DAILY [facility] Last Admin: 12/19/17 09:24 Dose: 5 mg Oxycodone HCl (Oxycodone Immediate Release Tab) 5 mg PO Q6H PRN PRN Reason: Pain, severe (8-10) Propranolol HCl (Inderal) 40 mg PO BID [facility] Last Admin: 12/19/17 09:25 Dose: 40 mg - Labs Labs: 12/19/17 06:00 12/19/17 06:00 PT 16.7 SECONDS (9.4-12.5) H 12/14/17 12:45 INR 1.44 (0.93-1.08) H 12/14/17 12:45 APTT 36.9 Seconds (25.1-36.5) H 12/14/17 12:45 Attending/Attestation - Attestation I have personally seen and examined this patient.: Yes I have fully participated in the care of the patient.: Yes I have reviewed all pertinent clinical information, including history, physical exam and plan: Yes Notes (Text): 12/19/17 13:24 Medical record note made by the resident after discussion with my direction and input after the patient was personally seen and examined by me. I have reviewed the chart and agree that the record accurately reflects by personal performance of the history, physical exam, data review, and medical decision-making, in the course for the patient. I have also personally directed the plan of care. 57 year old female with PMH of chronic liver disease, alcohol abuse cirrhosis , HCV, seizure disorder?, COPD, anxiety, depression, chronic thrombocytopenia, chronic opiate abuse on methadone was admitted with H/O fall while she was intoxicated with alcohol , Left arm xray showing anterior dislocation from GN join, humeral fracture at greater tuberosity.Patient is SP reduction of dislocated shoulder by Dr. Ndiaye.Alcohol withdrawal are improved.Thrombocytopenia is stable.Lft are close to base line.Patient was evaluated by Physical therapy and [facility] has been recommended.Patient is awaiting for placement. Management plan was discussed in detail with patient. Education was provided.
[2017-12-19] MEDS: oxyCODONE 5 mg Immediate Release Tab PO PRN ×2 (13:52→22:33)
--- NOTE | 2017-12-19 14:20 | PN ---
DATE: 12/19/2017 SUBJECTIVE: The patient was admitted on 12/14/2017 with 1-day-old fracture dislocation of left shoulder with greater tuberosity fracture. The last x-ray was done yesterday of left shoulder showed this to be in good position and we will continue the sling for another two weeks and follow her closely. There are no neurologic deficits. We will continue the left arm sling and shoulder precautions, so she does not abduct or externally rotate that shoulder which would cause it to dislocate anteriorly. Spenser Ndiaye DO
[2017-12-20] MEDS: Albuterol-Ipratrop 3 mg / 0.5 (3 ml) UD IH SCH ×4 (01:42→19:37)
[2017-12-20] MEDS: oxyCODONE 5 mg Immediate Release Tab PO PRN ×2 (05:41→20:07)
[2017-12-20 06:48] LABS: ALB/GLOB RATIO 0.7 (1.1-1.8); ALBUMIN 2.9 g/dL (3.0-4.8); ALT/SGPT 52 U/L (7-56); AST/SGOT 89 U/L (14-36); BLOOD UREA NITROGEN 8 mg/dL (7-21); CALCIUM 8.4 mg/dL (8.4-10.5); GFR AFRICAN-AMERICAN > 60; GFR NON-AFRICAN AMERICAN > 60
[2017-12-20 07:01] LABS: HEMOGLOBIN 11.6 g/dL (12.0-16.0); MEAN CELL VOLUME 93.8 fl (80.0-105.0); MEAN CORPUSCULAR HEMOGLOBIN 31.2 pg (25.0-35.0); MEAN CORPUSCULAR HGB CONC 33.2 g/dl (31.0-37.0); MEAN PLATELET VOLUME 11.3 fl (7.0-11.0); RBC 3.72 10^6/uL (3.5-6.1); RED CELL DISTRIBUTION WIDTH 14.5 % (11.5-14.5); WHITE BLOOD COUNT 5.4 10^3/ul (4.5-11.0)
[2017-12-20] MEDS: POLYETHYLENE GLYCOL 3350 17 GM/Dose PACKET PO SCH (11:44)
--- NOTE | 2017-12-20 13:48 | CP.PCM.PN ---
<Carlos Hernandez - Last Filed: 12/20/17 13:45> Subjective - Date & Time of Evaluation Date of Evaluation: 12/20/17 Time of Evaluation: 13:45 - Subjective Subjective: Patient seen and examined this AM. Overnight patient continues to complain of pain associated with recent surgery. Patient denies chest pain, shortness of breath, abdominal pain, nausea, vomiting, diarrhea. Objective - Vital Signs/Intake and Output Vital Signs (last 24 hours): Temp Pulse Resp BP Pulse Ox 98.4 F 67 20 137/84 95 12/20/17 08:03 12/20/17 09:03 12/20/17 08:03 12/20/17 09:03 12/20/17 08:03 Intake and Output: 12/20/17 12/20/17 06:59 18:59 Intake Total 840 1340 Balance 840 1340 - Medications Medications: Current Medications Albuterol/Ipratropium (Duoneb 3 Mg/0.5 Mg (3 Ml) Ud) 3 ml IH [id number] [facility] Last Admin: 12/20/17 08:03 Dose: 3 ml Albuterol/Ipratropium (Duoneb 3 Mg/0.5 Mg (3 Ml) Ud) 3 ml IH Q2H PRN PRN Reason: Shortness of Breath Famotidine (Pepcid) 20 mg PO 1000,2200 [facility] Last Admin: 12/20/17 09:04 Dose: 20 mg Lorazepam (Ativan) 1 mg IVP Q6H PRN; Protocol PRN Reason: Anxiety Last Admin: 12/18/17 08:23 Dose: 1 mg Lorazepam (Ativan) 1 mg PO Q6 PRN; Protocol PRN Reason: Anxiety Last Admin: 12/20/17 02:25 Dose: 1 mg Methadone HCl (Methadone) 40 mg PO DAILY [facility] Last Admin: 12/20/17 09:04 Dose: 40 mg Methadone HCl (Methadone) 5 mg PO DAILY [facility] Last Admin: 12/20/17 09:05 Dose: 5 mg Oxycodone HCl (Oxycodone Immediate Release Tab) 5 mg PO Q6H PRN PRN Reason: Pain, severe (8-10) Last Admin: 12/20/17 05:41 Dose: 5 mg Polyethylene Glycol (Miralax) 17 gm PO DAILY [facility] Last Admin: 12/20/17 11:44 Dose: 17 gm Propranolol HCl (Inderal) 40 mg PO BID [facility] Last Admin: 12/20/17 09:03 Dose: 40 mg - Labs Labs: 12/20/17 05:30 12/20/17 05:30 PT 16.7 SECONDS (9.4-12.5) H 12/14/17 12:45 INR 1.44 (0.93-1.08) H 12/14/17 12:45 APTT 36.9 Seconds (25.1-36.5) H 12/14/17 12:45 - Constitutional Appears: No Acute Distress - Head Exam Head Exam: ATRAUMATIC, NORMAL INSPECTION, NORMOCEPHALIC - Eye Exam Eye Exam: EOMI, PERRL - ENT Exam ENT Exam: Mucous Membranes Moist - Respiratory Exam Respiratory Exam: Clear to Ausculation Bilateral, NORMAL BREATHING PATTERN. absent: Rales, Rhonchi - Cardiovascular Exam Cardiovascular Exam: REGULAR RHYTHM, +S1, +S2 - GI/Abdominal Exam GI & Abdominal Exam: Soft, Normal Bowel Sounds. absent: Tenderness - Extremities Exam Extremities Exam: absent: Calf Tenderness Additional comments: left upper extremity immobilized with orthopedic sling - Neurological Exam Neurological Exam: Alert, Awake, Oriented x3 - Psychiatric Exam Psychiatric exam: Normal Affect, Normal Mood - Skin Skin Exam: Dry, Warm Assessment and Plan - Assessment and Plan (Free Text) Assessment: Patient is a 57 year old female with past medical history that includes cirrhosis, HCV, seizure disorder, CKD, COPD, anxiety, depression, HTN, chronic thrombocytopenia, seizure, chronic opiate abuse and esophageal varicies who presented to [facility] with left arm pain secondary to humeral fracture. Patient is s/p left humerus reduction with Dr. Ndiaye. Patient continues to work with PT, awaiting [facility] Plan: Left humeral fracture Details: - Left arm xray showing anterior dislocation from GH join, humeral fracture at greater tuberosity - S/p left humerus reduction - Neurovascular intact Plan: - Dr. Ndiaye cleared for discharge - Monitor clinically, patient to follow outpatient - Continue with PT, recommending [facility] - Awaiting thursday for [facility], patient unsafe discharge to home at this time due to lack of help Thrombocytopenia Details: - Chronic history - Plt stable at this time - Patient with chronic liver disease Plan: - Avoid thrombocytopenic toxic drugs Substance abuse Details: - History of heroin use - Methadone outpatient with [facility] in [place] Plan: - Continue methadone 45mg as per clinic - Substance abuse cessation education - Patient visitors restricted - Alcohol cessation dispo: SW spoke with admissions in [place] [facility] and able to accommodate pt and methadone tx starting on thursday GI PPX: protonix DVT ppx: SCDS Case and plan reviewed with attending <Maude Mcguire - Last Filed: 12/20/17 16:45> Objective - Vital Signs/Intake and Output Vital Signs (last 24 hours): Temp Pulse Resp BP Pulse Ox 98.4 F 67 20 137/84 95 12/20/17 08:03 12/20/17 09:03 12/20/17 08:03 12/20/17 09:03 12/20/17 08:03 Intake and Output: 12/20/17 12/20/17 06:59 18:59 Intake Total 840 1940 Balance 840 1940 - Medications Medications: Current Medications Albuterol/Ipratropium (Duoneb 3 Mg/0.5 Mg (3 Ml) Ud) 3 ml IH [id number] [facility] Last Admin: 12/20/17 14:44 Dose: 3 ml Albuterol/Ipratropium (Duoneb 3 Mg/0.5 Mg (3 Ml) Ud) 3 ml IH Q2H PRN PRN Reason: Shortness of Breath Famotidine (Pepcid) 20 mg PO 1000,2200 [facility] Last Admin: 12/20/17 09:04 Dose: 20 mg Lorazepam (Ativan) 1 mg IVP Q6H PRN; Protocol PRN Reason: Anxiety Last Admin: 12/18/17 08:23 Dose: 1 mg Lorazepam (Ativan) 1 mg PO Q6 PRN; Protocol PRN Reason: Anxiety Last Admin: 12/20/17 02:25 Dose: 1 mg Methadone HCl (Methadone) 40 mg PO DAILY [facility] Last Admin: 12/20/17 09:04 Dose: 40 mg Methadone HCl (Methadone) 5 mg PO DAILY [facility] Last Admin: 12/20/17 09:05 Dose: 5 mg Oxycodone HCl (Oxycodone Immediate Release Tab) 5 mg PO Q6H PRN PRN Reason: Pain, severe (8-10) Last Admin: 12/20/17 05:41 Dose: 5 mg Polyethylene Glycol (Miralax) 17 gm PO DAILY [facility] Last Admin: 12/20/17 11:44 Dose: 17 gm Propranolol HCl (Inderal) 40 mg PO BID [facility] Last Admin: 12/20/17 09:03 Dose: 40 mg - Labs Labs: 12/20/17 05:30 12/20/17 05:30 PT 16.7 SECONDS (9.4-12.5) H 12/14/17 12:45 INR 1.44 (0.93-1.08) H 12/14/17 12:45 APTT 36.9 Seconds (25.1-36.5) H 12/14/17 12:45 Attending/Attestation - Attestation I have personally seen and examined this patient.: Yes I have fully participated in the care of the patient.: Yes I have reviewed all pertinent clinical information, including history, physical exam and plan: Yes Notes (Text): 12/20/17 16:41 Medical record note made by the resident after discussion with my direction and input after the patient was personally seen and examined by me. I have reviewed the chart and agree that the record accurately reflects by personal performance of the history, physical exam, data review, and medical decision-making, in the course for the patient. I have also personally directed the plan of care. 57 year old female with PMH of chronic liver disease, alcohol abuse cirrhosis , HCV, seizure disorder?, COPD, anxiety, depression, chronic thrombocytopenia, chronic opiate abuse on methadone was admitted with H/O fall while she was intoxicated with alcohol , Left arm xray showing anterior dislocation from GN join, humeral fracture at greater tuberosity.Patient is SP reduction of dislocated shoulder by Dr. Ndiaye.Alcohol withdrawal are improved.Thrombocytopenia is stable.Liver functions are are close to base line.Patient was evaluated by Physical therapy and [facility] has been recommended.Patient is awaiting for placement. Management plan was discussed in detail with patient. Education was provided.
--- NOTE | 2017-12-20 20:49 | OP ---
follow u The patient underwent a closed reduction in the operating room for a reducible dislocation of her left non-dominant shoulder when she came in on 12/14/2017. She has been inappropriately moving the arm, but the last x-ray done yesterday showed no dislocation of the shoulder, but there was a displacement of the greater tuberosity fragment which really should be stabilized with metal screws and plate, so after mentioning that to her, so she wants to get the lt shoulder fx improved.we will scheduled this week for ORIF of greater tuberosity fracture to stabilize the displaced greater tuberosity, which will impede her range of motion. Then, I will have to put her in a sling for 6 weeks again to keep the fracture from inappropriately moving like it has done already, so we will do her scheduling once the OR opens up and hopefully, we will get her on this week. Spenser Ndiaye DO MTDD
[2017-12-21] MEDS: Albuterol-Ipratrop 3 mg / 0.5 (3 ml) UD IH SCH ×4 (01:15→19:24)
[2017-12-21] MEDS: oxyCODONE 5 mg Immediate Release Tab PO PRN ×3 (02:40→17:33)
[2017-12-21 06:52] LABS: HEMOGLOBIN 12.1 g/dL (12.0-16.0); MEAN CORPUSCULAR HEMOGLOBIN 31.6 pg (25.0-35.0); MEAN CORPUSCULAR HGB CONC 33.6 g/dl (31.0-37.0); MEAN PLATELET VOLUME 11.1 fl (7.0-11.0); RBC 3.83 10^6/uL (3.5-6.1); RED CELL DISTRIBUTION WIDTH 14.7 % (11.5-14.5); WHITE BLOOD COUNT 6.4 10^3/ul (4.5-11.0)
[2017-12-21 07:26] LABS: ALB/GLOB RATIO 0.7 (1.1-1.8); ALBUMIN 3.2 g/dL (3.0-4.8); ALT/SGPT 47 U/L (7-56); AST/SGOT 90 U/L (14-36); BLOOD UREA NITROGEN 7 mg/dL (7-21); CALCIUM 8.5 mg/dL (8.4-10.5); GFR AFRICAN-AMERICAN > 60; GFR NON-AFRICAN AMERICAN > 60
[2017-12-21] MEDS: POLYETHYLENE GLYCOL 3350 17 GM/Dose PACKET PO SCH (09:44)
--- NOTE | 2017-12-21 10:28 | CT ---
PROCEDURE: HISTORY: for or tues orif lt shoulder fx COMPARISON: TECHNIQUE: FINDINGS: Comminuted fracture of the humeral head with associated large joint effusion. No evidence of glenohumeral dislocation. No evidence of Bank[place] fracture. Extensive surrounding soft tissue edema. IMPRESSION: Comminuted fracture of the humeral head with associated large joint effusion. No evidence of glenohumeral dislocation. No evidence of Bankart fracture. Extensive surrounding soft tissue edema.
--- NOTE | 2017-12-21 12:59 | CP.PCM.PN ---
<Carlos Hernandez - Last Filed: 12/21/17 13:07> Subjective - Date & Time of Evaluation Date of Evaluation: 12/21/17 Time of Evaluation: 12:55 - Subjective Subjective: Patient seen and examined. No acute events reported. Patient to go back to OR with Dr. Ndiaye tomorrow. Objective - Vital Signs/Intake and Output Vital Signs (last 24 hours): Temp Pulse Resp BP Pulse Ox 98.5 F 76 20 130/89 96 12/21/17 07:46 12/21/17 09:42 12/21/17 07:46 12/21/17 09:42 12/21/17 07:46 Intake and Output: 12/21/17 12/21/17 06:59 18:59 Intake Total 1720 Balance 1720 - Medications Medications: Current Medications Albuterol/Ipratropium (Duoneb 3 Mg/0.5 Mg (3 Ml) Ud) 3 ml IH [id number] [facility] Last Admin: 12/21/17 07:49 Dose: 3 ml Albuterol/Ipratropium (Duoneb 3 Mg/0.5 Mg (3 Ml) Ud) 3 ml IH Q2H PRN PRN Reason: Shortness of Breath Famotidine (Pepcid) 20 mg PO 1000,2200 [facility] Last Admin: 12/21/17 09:42 Dose: 20 mg Lorazepam (Ativan) 1 mg IVP Q6H PRN; Protocol PRN Reason: Anxiety Last Admin: 12/18/17 08:23 Dose: 1 mg Lorazepam (Ativan) 1 mg PO Q6 PRN; Protocol PRN Reason: Anxiety Last Admin: 12/21/17 05:39 Dose: 1 mg Methadone HCl (Methadone) 40 mg PO DAILY [facility] Last Admin: 12/21/17 09:44 Dose: 40 mg Methadone HCl (Methadone) 5 mg PO DAILY [facility] Last Admin: 12/21/17 09:43 Dose: 5 mg Oxycodone HCl (Oxycodone Immediate Release Tab) 5 mg PO Q6H PRN PRN Reason: Pain, severe (8-10) Last Admin: 12/21/17 08:29 Dose: 5 mg Polyethylene Glycol (Miralax) 17 gm PO DAILY [facility] Last Admin: 12/21/17 09:44 Dose: 17 gm Propranolol HCl (Inderal) 40 mg PO BID [facility] Last Admin: 12/21/17 09:42 Dose: 40 mg - Labs Labs: 12/21/17 05:45 12/21/17 05:45 PT 16.7 SECONDS (9.4-12.5) H 12/14/17 12:45 INR 1.44 (0.93-1.08) H 12/14/17 12:45 APTT 36.9 Seconds (25.1-36.5) H 12/14/17 12:45 - Constitutional Appears: No Acute Distress - Head Exam Head Exam: ATRAUMATIC, NORMAL INSPECTION, NORMOCEPHALIC - Eye Exam Eye Exam: EOMI, PERRL - ENT Exam ENT Exam: Mucous Membranes Moist - Respiratory Exam Respiratory Exam: Clear to Ausculation Bilateral, NORMAL BREATHING PATTERN. absent: Rales, Rhonchi, Wheezes - Cardiovascular Exam Cardiovascular Exam: REGULAR RHYTHM, +S1, +S2 - GI/Abdominal Exam GI & Abdominal Exam: Soft, Normal Bowel Sounds - Extremities Exam Extremities Exam: Normal Inspection - Neurological Exam Neurological Exam: Alert, Awake, Oriented x3 - Psychiatric Exam Psychiatric exam: Normal Affect, Normal Mood - Skin Skin Exam: Dry, Warm Assessment and Plan - Assessment and Plan (Free Text) Assessment: Patient is a 57 year old female with past medical history that includes cirrhosis, HCV, seizure disorder, CKD, COPD, anxiety, depression, HTN, chronic thrombocytopenia, seizure, chronic opiate abuse and esophageal varicies who presented to [facility] ED with left arm pain secondary to humeral fracture. Patient is s/p left humerus reduction with Dr. Ndiaye. Patient evaluated by Dr. Ndiaye and will be going back to OR for right shoulder surgery. Plan: Patient medically cleared for revision of left shoulder fracture tomorrow with Dr. Ndiaye Left humeral fracture Details: - Left arm xray showing anterior dislocation from GH join, humeral fracture at greater tuberosity - S/p left humerus reduction - Neurovascular intact - Left upper extremity CT: comminuted fracture of the humeral head with associated large joint effusion, no evidence of GH dislocation, no evidence of bankart fracture Plan: - Dr. Ndiaye wanting patient to go back to OR for revision of left shoulder fracture - PT, recommending [facility] Thrombocytopenia Details: - Chronic history - Plt stable at this time - Patient with chronic liver disease Plan: - Avoid thrombocytopenic toxic drugs Substance abuse Details: - History of heroin use - Methadone outpatient with [facility] in [place] Plan: - Continue methadone 45mg as per clinic - Substance abuse cessation education - Patient visitors restricted - Alcohol cessation counseling GI PPX: protonix DVT ppx: SCDS Case and plan reviewed with attending <Germán Harmon - Last Filed: 12/21/17 13:43> Objective - Vital Signs/Intake and Output Vital Signs (last 24 hours): Temp Pulse Resp BP Pulse Ox 98.5 F 76 20 130/89 96 12/21/17 07:46 12/21/17 09:42 12/21/17 07:46 12/21/17 09:42 12/21/17 07:46 Intake and Output: 12/21/17 12/21/17 06:59 18:59 Intake Total 1720 Balance 1720 - Medications Medications: Current Medications Albuterol/Ipratropium (Duoneb 3 Mg/0.5 Mg (3 Ml) Ud) 3 ml IH [id number] [facility] Last Admin: 12/21/17 13:30 Dose: 3 ml Albuterol/Ipratropium (Duoneb 3 Mg/0.5 Mg (3 Ml) Ud) 3 ml IH Q2H PRN PRN Reason: Shortness of Breath Famotidine (Pepcid) 20 mg PO 1000,2200 [facility] Last Admin: 12/21/17 09:42 Dose: 20 mg Lorazepam (Ativan) 1 mg IVP Q6H PRN; Protocol PRN Reason: Anxiety Last Admin: 12/18/17 08:23 Dose: 1 mg Lorazepam (Ativan) 1 mg PO Q6 PRN; Protocol PRN Reason: Anxiety Last Admin: 12/21/17 05:39 Dose: 1 mg Methadone HCl (Methadone) 40 mg PO DAILY [facility] Last Admin: 12/21/17 09:44 Dose: 40 mg Methadone HCl (Methadone) 5 mg PO DAILY [facility] Last Admin: 12/21/17 09:43 Dose: 5 mg Oxycodone HCl (Oxycodone Immediate Release Tab) 5 mg PO Q6H PRN PRN Reason: Pain, severe (8-10) Last Admin: 12/21/17 08:29 Dose: 5 mg Polyethylene Glycol (Miralax) 17 gm PO DAILY [facility] Last Admin: 12/21/17 09:44 Dose: 17 gm Propranolol HCl (Inderal) 40 mg PO BID [facility] Last Admin: 12/21/17 09:42 Dose: 40 mg - Labs Labs: 12/21/17 05:45 12/21/17 05:45 PT 16.7 SECONDS (9.4-12.5) H 12/14/17 12:45 INR 1.44 (0.93-1.08) H 12/14/17 12:45 APTT 36.9 Seconds (25.1-36.5) H 12/14/17 12:45 - Extremities Exam Additional comments: left arm in stabilizer Attending/Attestation - Attestation I have personally seen and examined this patient.: Yes I have fully participated in the care of the patient.: Yes I have reviewed all pertinent clinical information, including history, physical exam and plan: Yes Notes (Text): 12/21/17 13:39 57 year old female with PMH of chronic liver disease, alcohol abuse cirrhosis, HCV, ?seizure disorder, COPD, anxiety, depression, chronic thrombocytopenia, and chronic opiate abuse on methadone who was admitted s/p fall likely secondary to ETOH intoxication. Left arm xray showed anterior dislocation from GN joint and humeral fracture at greater tuberosity. Patient is s/p reduction of dislocated shoulder by orthopedics. Repeat CT upper extremity is ordered. Plan is for possible OR tomorrow. Alcohol withdrawal symptoms have resolved. She in on ativan prn. She was counselled on alcohol cessation. Thrombocytopenia and transaminitis are chronic and stable, close to baseline. Germán Harmon MD Hosptilist.
[2017-12-22] MEDS: oxyCODONE 5 mg Immediate Release Tab PO PRN (01:10)
[2017-12-22] MEDS: Albuterol-Ipratrop 3 mg / 0.5 (3 ml) UD IH SCH ×3 (02:37→21:55)
--- NOTE | 2017-12-22 09:04 | CP.PCM.PN ---
<Carlos Hernandez - Last Filed: 12/23/17 08:24> Subjective - Date & Time of Evaluation Date of Evaluation: 12/22/17 Time of Evaluation: 08:56 - Subjective Subjective: Patient seen and evaluated. Patient to go for possible surgical revision of left humeral fracture with ortho today. Patient reports poor sleep overnight and indicates she has been NPO since midnight. Patient denies chest pain, shortness of breath, abdominal pain, nausea, vomiting, fever, chills. Objective - Vital Signs/Intake and Output Vital Signs (last 24 hours): Temp Pulse Resp BP Pulse Ox 98.4 F 78 16 143/93 H 94 L 12/22/17 08:05 12/22/17 08:05 12/22/17 08:05 12/22/17 08:05 12/22/17 08:05 Intake and Output: 12/22/17 12/22/17 06:59 18:59 Intake Total 780 Output Total 0 Balance 780 - Medications Medications: Current Medications Albuterol/Ipratropium (Duoneb 3 Mg/0.5 Mg (3 Ml) Ud) 3 ml IH [id number] [facility] Last Admin: 12/22/17 08:00 Dose: 3 ml Albuterol/Ipratropium (Duoneb 3 Mg/0.5 Mg (3 Ml) Ud) 3 ml IH Q2H PRN PRN Reason: Shortness of Breath Famotidine (Pepcid) 20 mg PO 1000,2200 [facility] Last Admin: 12/21/17 22:08 Dose: 20 mg Lorazepam (Ativan) 1 mg IVP Q6H PRN; Protocol PRN Reason: Anxiety Last Admin: 12/18/17 08:23 Dose: 1 mg Lorazepam (Ativan) 1 mg PO Q6 PRN; Protocol PRN Reason: Anxiety Last Admin: 12/22/17 04:24 Dose: 1 mg Methadone HCl (Methadone) 40 mg PO DAILY [facility] Last Admin: 12/21/17 09:44 Dose: 40 mg Methadone HCl (Methadone) 5 mg PO DAILY [facility] Last Admin: 12/21/17 09:43 Dose: 5 mg Oxycodone HCl (Oxycodone Immediate Release Tab) 5 mg PO Q6H PRN PRN Reason: Pain, severe (8-10) Last Admin: 04/24/18 01:10 Dose: 5 mg Polyethylene Glycol (Miralax) 17 gm PO DAILY [facility] Last Admin: 12/21/17 09:44 Dose: 17 gm Propranolol HCl (Inderal) 40 mg PO BID [facility] Last Admin: 12/21/17 17:33 Dose: 40 mg - Labs Labs: 12/21/17 05:45 12/21/17 05:45 PT 16.7 SECONDS (9.4-12.5) H 12/14/17 12:45 INR 1.44 (0.93-1.08) H 12/14/17 12:45 APTT 36.9 Seconds (25.1-36.5) H 12/14/17 12:45 - Constitutional Appears: No Acute Distress - Head Exam Head Exam: ATRAUMATIC, NORMAL INSPECTION, NORMOCEPHALIC - Eye Exam Eye Exam: EOMI, PERRL - Respiratory Exam Respiratory Exam: Clear to Ausculation Bilateral, NORMAL BREATHING PATTERN. absent: Rhonchi, Wheezes - Cardiovascular Exam Cardiovascular Exam: REGULAR RHYTHM, +S1, +S2 - GI/Abdominal Exam GI & Abdominal Exam: Soft, Normal Bowel Sounds. absent: Guarding, Rigid, Tenderness - Extremities Exam Extremities Exam: absent: Calf Tenderness, Pedal Edema Additional comments: left upper extremity immobilized in sling, mild swelling around left shoulder, limited ROM of left shoulder - Neurological Exam Neurological Exam: Alert, Awake, Oriented x3 - Psychiatric Exam Psychiatric exam: Normal Affect, Normal Mood - Skin Skin Exam: Dry, Warm Assessment and Plan - Assessment and Plan (Free Text) Assessment: Patient is a 57 year old female with past medical history that includes cirrhosis, HCV, seizure disorder, CKD, COPD, anxiety, depression, HTN, chronic thrombocytopenia, seizure, chronic opiate abuse and esophageal varicies who presented to [facility] ED with left arm pain secondary to humeral fracture. Patient is s/p left humerus reduction with Dr. Ndiaye. Patient scheduled for revision of previous surgery with Dr. Ndiaye. Plan: Left humeral fracture Details: - Left arm xray showing anterior dislocation from GH joint, humeral fracture at greater tuberosity - S/p left humerus reduction 12/15/17 - Neurovascular intact - Left upper extremity CT: comminuted fracture of the humeral head with associated large joint effusion, no evidence of GH dislocation, no evidence of bankart fracture Plan: - Revision of left humeral fracture repair with orthopedic surgery - PT, recommending [facility] - SW spoke with [facility] for potential rehab Thrombocytopenia Details: - Chronic history - Plt stable at this time, trending upward - Patient with chronic liver disease Plan: - Avoid thrombocytopenic toxic drugs Substance abuse Details: - History of heroin use - Methadone outpatient with [facility] in [place] Plan: - Continue methadone 45mg as per clinic - Substance abuse cessation education - Patient visitors restricted - Alcohol cessation counseling GI PPX: protonix DVT ppx: SCDS Case and plan reviewed with attending <Germán Harmon - Last Filed: 12/23/17 09:41> Objective - Vital Signs/Intake and Output Vital Signs (last 24 hours): Temp Pulse Resp BP Pulse Ox 97.2 F L 92 H 19 142/95 H 97 12/23/17 09:37 12/23/17 09:37 12/23/17 09:37 12/23/17 09:37 12/23/17 09:37 Intake and Output: 12/23/17 12/23/17 06:59 18:59 Intake Total 660 Output Total 100 Balance 560 - Medications Medications: Current Medications Albuterol/Ipratropium (Duoneb 3 Mg/0.5 Mg (3 Ml) Ud) 3 ml IH [id number] [facility] Last Admin: 12/23/17 07:32 Dose: 3 ml Albuterol/Ipratropium (Duoneb 3 Mg/0.5 Mg (3 Ml) Ud) 3 ml IH Q2H PRN PRN Reason: Shortness of Breath Enoxaparin Sodium (Lovenox) 30 mg SC DAILY [facility] PRN Reason: Protocol Famotidine (Pepcid) 20 mg PO 1000,2200 [facility] Last Admin: 12/22/17 21:50 Dose: 20 mg Lorazepam (Ativan) 1 mg IVP Q6H PRN; Protocol PRN Reason: Anxiety Last Admin: 12/22/17 23:54 Dose: 1 mg Lorazepam (Ativan) 1 mg PO Q6 PRN; Protocol PRN Reason: Anxiety Last Admin: 12/22/17 04:24 Dose: 1 mg Methadone HCl (Methadone) 40 mg PO DAILY [facility] Methadone HCl (Methadone) 5 mg PO DAILY [facility] Oxycodone HCl (Oxycodone Immediate Release Tab) 5 mg PO Q6H PRN PRN Reason: Pain, severe (8-10) Last Admin: 12/22/17 01:10 Dose: 5 mg Polyethylene Glycol (Miralax) 17 gm PO DAILY [facility] Last Admin: 12/22/17 10:10 Dose: Not Given Propranolol HCl (Inderal) 40 mg PO BID [facility] Last Admin: 12/22/17 18:17 Dose: Not Given - Labs Labs: 12/23/17 08:00 12/23/17 08:00 PT 16.7 SECONDS (9.4-12.5) H 12/14/17 12:45 INR 1.44 (0.93-1.08) H 12/14/17 12:45 APTT 36.9 Seconds (25.1-36.5) H 12/14/17 12:45 Attending/Attestation - Attestation I have personally seen and examined this patient.: Yes I have fully participated in the care of the patient.: Yes I have reviewed all pertinent clinical information, including history, physical exam and plan: Yes Notes (Text): 12/22/17 57 year old female with PMH of chronic liver disease, alcohol abuse cirrhosis, HCV, ?seizure disorder, COPD, anxiety, depression, chronic thrombocytopenia, and chronic opiate abuse on methadone who was admitted s/p fall likely secondary to ETOH intoxication. Left arm xray showed anterior dislocation from GN joint and humeral fracture at greater tuberosity. Patient is s/p reduction of dislocated shoulder by orthopedics. Repeat CT upper extremity was reviewed as above. Plan is for OR revision today. Alcohol withdrawal symptoms have resolved. She in on ativan prn. She was counselled on alcohol cessation. Thrombocytopenia and transaminitis are chronic and stable, close to baseline. Germán Harmon MD Hospitalist.
[2017-12-22] MEDS: POLYETHYLENE GLYCOL 3350 17 GM/Dose PACKET PO SCH (10:10)
[2017-12-22 10:12] LABS: HEMOGLOBIN 11.2 g/dL (12.0-16.0); MEAN CELL VOLUME 94.1 fl (80.0-105.0); MEAN CORPUSCULAR HEMOGLOBIN 31.5 pg (25.0-35.0); MEAN CORPUSCULAR HGB CONC 33.4 g/dl (31.0-37.0); MEAN PLATELET VOLUME 10.9 fl (7.0-11.0); RBC 3.56 10^6/uL (3.5-6.1); RED CELL DISTRIBUTION WIDTH 15.2 % (11.5-14.5)
[2017-12-22 10:20] LABS: ALB/GLOB RATIO 0.7 (1.1-1.8); ALBUMIN 2.8 g/dL (3.0-4.8); ALT/SGPT 48 U/L (7-56); AST/SGOT 78 U/L (14-36); BLOOD UREA NITROGEN 7 mg/dL (7-21); CALCIUM 8.2 mg/dL (8.4-10.5); GFR AFRICAN-AMERICAN > 60; GFR NON-AFRICAN AMERICAN > 60
--- NOTE | 2017-12-22 12:56 | PN ---
DATE: 12/22/2017 PREOPERATIVE NOTE A 57-year-old female with fracture and dislocation of left shoulder, nondominant arm. Dislocation was reduced from the day that she came out of the general anesthesia because she was uncooperative. Now, we have to take her back to Surgery. First surgery being on 12/14/2017, now the surgery is going to be today, on 12/22/2017 to reduce the great tuberosity fracture that displaced because she was too active while being observed for the shoulder dislocation. She removed the brace and took it off and moved the shoulder, so the greater tuberosity is posterior and superior interfering with abduction that will not make her move well post dislocation, so we have to reduce the greater tuberosity fragment with sutures or screws this afternoon. I told her the risks and consequences and the possibility of infection and the fracture remaining still displaced, this is a tricky surgery and it will displace if she does not cooperate with postop care and she will need a sling for another six weeks. Spenser Ndiaye DO
[2017-12-22] MEDS ORDERED: Bupivacaine 0.5% Inj(30mL) ONE (13:21)
[2017-12-22] MEDS ORDERED: Midazolam 2 MG/2 ML VIAL ONE (13:42)
[2017-12-22] MEDS ORDERED: Propofol 10 mg/ml Inj (20 ML) ONE (13:43)
[2017-12-22] MEDS ORDERED: Rocuronium 10 mg/ml (5 ml) ONE ×2 (13:43→14:56)
[2017-12-22] MEDS ORDERED: Vancomycin 1 g Inj ONE ×2 (14:07→15:04)
[2017-12-22] MEDS ORDERED: ePHEDrine 50 mg/ml Inj ONE (15:04)
[2017-12-22] MEDS ORDERED: Sevoflurane - Inhalation Anesthetic Liq (250 ml) ONE (15:20)
[2017-12-22] MEDS ORDERED: Neostigmine Methylsulfate 3mg/3ml Syringe IV ONE (16:21)
[2017-12-22] MEDS ORDERED: Morphine 4 mg/ml ISec ONE (16:38)
[2017-12-22] MEDS ORDERED: HYDROmorphone 0.5 mg/0.5 ml ISec IVP PRN (17:10)
[2017-12-22] MEDS ORDERED: Lactated Ringer's 1,000 ML IV SCH (17:15)
[2017-12-22] MEDS: HYDROmorphone 0.5 mg/0.5 ml ISec ONE ×2 (17:15→17:30)
[2017-12-22] MEDS: ceFAZolin 1 gm in NS 1 GM/100 ML BAG IVPB SCH (21:52)
[2017-12-22 22:58] LABS: GRAN % 75.8 % (50.0-68.0); HEMOGLOBIN 11.5 g/dL (12.0-16.0); MEAN CELL VOLUME 94.5 fl (80.0-105.0); MEAN CORPUSCULAR HEMOGLOBIN 31.9 pg (25.0-35.0); MEAN CORPUSCULAR HGB CONC 33.7 g/dl (31.0-37.0); MEAN PLATELET VOLUME 10.3 fl (7.0-11.0); RBC 3.61 10^6/uL (3.5-6.1); RED CELL DISTRIBUTION WIDTH 15.3 % (11.5-14.5); WHITE BLOOD COUNT 10.2 10^3/ul (4.5-11.0)
[2017-12-22 22:59] LABS: BASO # 0.02 K/mm3 (0.0-2.0); BASO % 0.2 % (0.0-3.0); EOS # 0.1 (0.0-0.7); GRAN # 7.7 (1.4-6.5); LYMPH # 1.1 (1.2-3.4); LYMPH % 10.7 % (22.0-35.0); MONO # 1.3 (0.1-0.6); MONO % 12.3 % (1.0-6.0)
[2017-12-23] MEDS: Albuterol-Ipratrop 3 mg / 0.5 (3 ml) UD IH SCH ×4 (01:25→20:28)
--- NOTE | 2017-12-23 04:10 | CP.PCM.PN ---
<JeovanyMarcelino mg - Last Filed: 12/23/17 04:11> Subjective - Date & Time of Evaluation Date of Evaluation: 12/23/17 Time of Evaluation: 03:50 - Subjective Subjective: Paged by nurse regarding patient agitation. Patient has a history of etOh abuse. SHe just underwent surgery for left humoral fracture. Patient pulled out tam, and took off sling multiple times according to nursing report. On examination patient states she was depressed and had visual hallucinations. When asked about her hallucinations patient began having severe thought blocking then word salad. Patient is disoriented to time. When asked what time it was she stated 1992. Speech was also tangential. Geodon 10 IM and was ordered and Psychiatry was consulted. On reassessment patient was resting comfortably. Objective - Vital Signs/Intake and Output Vital Signs (last 24 hours): Temp Pulse Resp BP Pulse Ox 98.8 F 64 19 146/98 H 95 12/22/17 18:17 12/22/17 18:17 12/22/17 18:17 12/22/17 18:17 12/22/17 18:17 Intake and Output: 12/22/17 12/23/17 18:59 06:59 Intake Total 480 Balance 480 - Medications Medications: Current Medications Albuterol/Ipratropium (Duoneb 3 Mg/0.5 Mg (3 Ml) Ud) 3 ml IH [id number] [facility] Last Admin: 12/23/17 01:25 Dose: 3 ml Albuterol/Ipratropium (Duoneb 3 Mg/0.5 Mg (3 Ml) Ud) 3 ml IH Q2H PRN PRN Reason: Shortness of Breath Enoxaparin Sodium (Lovenox) 30 mg SC DAILY [facility] PRN Reason: Protocol Famotidine (Pepcid) 20 mg PO 1000,2200 [facility] Last Admin: 12/22/17 21:50 Dose: 20 mg Cefazolin Sodium (Ancef 1gm In Ns) 1 gm in 100 mls @ 100 mls/hr IVPB Q8 [facility] PRN Reason: Protocol Stop: 12/23/17 06:59 Last Admin: 12/22/17 21:52 Dose: 100 mls/hr Lorazepam (Ativan) 1 mg IVP Q6H PRN; Protocol PRN Reason: Anxiety Last Admin: 12/22/17 23:54 Dose: 1 mg Lorazepam (Ativan) 1 mg PO Q6 PRN; Protocol PRN Reason: Anxiety Last Admin: 12/22/17 04:24 Dose: 1 mg Methadone HCl (Methadone) 40 mg PO DAILY [facility] Methadone HCl (Methadone) 5 mg PO DAILY [facility] Oxycodone HCl (Oxycodone Immediate Release Tab) 5 mg PO Q6H PRN PRN Reason: Pain, severe (8-10) Last Admin: 12/22/17 01:10 Dose: 5 mg Polyethylene Glycol (Miralax) 17 gm PO DAILY [facility] Last Admin: 12/22/17 10:10 Dose: Not Given Propranolol HCl (Inderal) 40 mg PO BID [facility] Last Admin: 12/22/17 18:17 Dose: Not Given - Labs Labs: 12/22/17 18:55 12/22/17 09:55 PT 16.7 SECONDS (9.4-12.5) H 12/14/17 12:45 INR 1.44 (0.93-1.08) H 12/14/17 12:45 APTT 36.9 Seconds (25.1-36.5) H 12/14/17 12:45 <Thania Jones - Last Filed: 12/23/17 08:23> Objective - Vital Signs/Intake and Output Vital Signs (last 24 hours): Temp Pulse Resp BP Pulse Ox 98.8 F 64 19 146/98 H 95 12/22/17 18:17 12/22/17 18:17 12/22/17 18:17 12/22/17 18:17 12/22/17 18:17 Intake and Output: 12/23/17 12/23/17 06:59 18:59 Intake Total 660 Output Total 100 Balance 560 - Medications Medications: Current Medications Albuterol/Ipratropium (Duoneb 3 Mg/0.5 Mg (3 Ml) Ud) 3 ml IH [id number] [facility] Last Admin: 12/23/17 07:32 Dose: 3 ml Albuterol/Ipratropium (Duoneb 3 Mg/0.5 Mg (3 Ml) Ud) 3 ml IH Q2H PRN PRN Reason: Shortness of Breath Enoxaparin Sodium (Lovenox) 30 mg SC DAILY [facility] PRN Reason: Protocol Famotidine (Pepcid) 20 mg PO 1000,2200 [facility] Last Admin: 12/22/17 21:50 Dose: 20 mg Lorazepam (Ativan) 1 mg IVP Q6H PRN; Protocol PRN Reason: Anxiety Last Admin: 12/22/17 23:54 Dose: 1 mg Lorazepam (Ativan) 1 mg PO Q6 PRN; Protocol PRN Reason: Anxiety Last Admin: 12/22/17 04:24 Dose: 1 mg Methadone HCl (Methadone) 40 mg PO DAILY [facility] Methadone HCl (Methadone) 5 mg PO DAILY [facility] Oxycodone HCl (Oxycodone Immediate Release Tab) 5 mg PO Q6H PRN PRN Reason: Pain, severe (8-10) Last Admin: 12/22/17 01:10 Dose: 5 mg Polyethylene Glycol (Miralax) 17 gm PO DAILY [facility] Last Admin: 12/22/17 10:10 Dose: Not Given Propranolol HCl (Inderal) 40 mg PO BID [facility] Last Admin: 12/22/17 18:17 Dose: Not Given - Labs Labs: 12/22/17 18:55 12/22/17 09:55 PT 16.7 SECONDS (9.4-12.5) H 12/14/17 12:45 INR 1.44 (0.93-1.08) H 12/14/17 12:45 APTT 36.9 Seconds (25.1-36.5) H 12/14/17 12:45 Attending/Attestation - Attestation I have personally seen and examined this patient.: Yes I have fully participated in the care of the patient.: Yes I have reviewed all pertinent clinical information, including history, physical exam and plan: Yes Notes (Text): 12/23/17 08:22 Pt rested comfortably after she was treated with Geodon.
[2017-12-23] MEDS: ceFAZolin 1 gm in NS 1 GM/100 ML BAG IVPB SCH (06:01)
[2017-12-23] MEDS ORDERED: HYDROmorphone 0.5 mg/0.5 ml ISec IVP STA (07:29)
[2017-12-23 08:05] LABS: HEMOGLOBIN 11.8 g/dL (12.0-16.0); MEAN CELL VOLUME 92.7 fl (80.0-105.0); MEAN CORPUSCULAR HEMOGLOBIN 31.9 pg (25.0-35.0); MEAN CORPUSCULAR HGB CONC 34.4 g/dl (31.0-37.0); MEAN PLATELET VOLUME 10.5 fl (7.0-11.0); RBC 3.7 10^6/uL (3.5-6.1); RED CELL DISTRIBUTION WIDTH 15.1 % (11.5-14.5); WHITE BLOOD COUNT 10.4 10^3/ul (4.5-11.0)
[2017-12-23 08:21] LABS: ALB/GLOB RATIO 0.7 (1.1-1.8); ALBUMIN 3.2 g/dL (3.0-4.8); ALT/SGPT 44 U/L (7-56); AST/SGOT 86 U/L (14-36); BLOOD UREA NITROGEN 8 mg/dL (7-21); CALCIUM 8.5 mg/dL (8.4-10.5); GFR AFRICAN-AMERICAN > 60; GFR NON-AFRICAN AMERICAN > 60
--- NOTE | 2017-12-23 08:29 | CP.PCM.PN ---
<Carlos Hernandez - Last Filed: 12/23/17 13:30> Subjective - Date & Time of Evaluation Date of Evaluation: 12/23/17 Time of Evaluation: 08:24 - Subjective Subjective: Patient seen and evaluated at bedside. Overnight patient was noted to be agitated and with possible post op delirium. Patient was given Geodon for her symptoms. Patient evaluated this morning. Alert and oriented to self. Denies visual and auditory hallucinations. Unable to identify location or time. Patient is with one to one observation at moment for agitation and pulling on surgical tam. Objective - Vital Signs/Intake and Output Vital Signs (last 24 hours): Temp Pulse Resp BP Pulse Ox 98.8 F 64 19 146/98 H 95 12/22/17 18:17 12/22/17 18:17 12/22/17 18:17 12/22/17 18:17 12/22/17 18:17 Intake and Output: 12/23/17 12/23/17 06:59 18:59 Intake Total 660 Output Total 100 Balance 560 - Medications Medications: Current Medications Albuterol/Ipratropium (Duoneb 3 Mg/0.5 Mg (3 Ml) Ud) 3 ml IH [id number] [facility] Last Admin: 12/23/17 07:32 Dose: 3 ml Albuterol/Ipratropium (Duoneb 3 Mg/0.5 Mg (3 Ml) Ud) 3 ml IH Q2H PRN PRN Reason: Shortness of Breath Enoxaparin Sodium (Lovenox) 30 mg SC DAILY [facility] PRN Reason: Protocol Famotidine (Pepcid) 20 mg PO 1000,2200 [facility] Last Admin: 12/22/17 21:50 Dose: 20 mg Lorazepam (Ativan) 1 mg IVP Q6H PRN; Protocol PRN Reason: Anxiety Last Admin: 12/22/17 23:54 Dose: 1 mg Lorazepam (Ativan) 1 mg PO Q6 PRN; Protocol PRN Reason: Anxiety Last Admin: 12/22/17 04:24 Dose: 1 mg Methadone HCl (Methadone) 40 mg PO DAILY [facility] Methadone HCl (Methadone) 5 mg PO DAILY [facility] Oxycodone HCl (Oxycodone Immediate Release Tab) 5 mg PO Q6H PRN PRN Reason: Pain, severe (8-10) Last Admin: 12/22/17 01:10 Dose: 5 mg Polyethylene Glycol (Miralax) 17 gm PO DAILY [facility] Last Admin: 12/22/17 10:10 Dose: Not Given Propranolol HCl (Inderal) 40 mg PO BID [facility] Last Admin: 12/22/17 18:17 Dose: Not Given - Labs Labs: 12/23/17 08:00 12/23/17 08:00 PT 16.7 SECONDS (9.4-12.5) H 12/14/17 12:45 INR 1.44 (0.93-1.08) H 12/14/17 12:45 APTT 36.9 Seconds (25.1-36.5) H 12/14/17 12:45 - Constitutional Appears: No Acute Distress - Head Exam Head Exam: ATRAUMATIC, NORMAL INSPECTION, NORMOCEPHALIC - Eye Exam Eye Exam: EOMI, PERRL - Respiratory Exam Respiratory Exam: Clear to Ausculation Bilateral, NORMAL BREATHING PATTERN. absent: Rhonchi, Wheezes - Cardiovascular Exam Cardiovascular Exam: REGULAR RHYTHM, +S1, +S2 - GI/Abdominal Exam GI & Abdominal Exam: Soft. absent: Tenderness - Extremities Exam Extremities Exam: absent: Pedal Edema, Tenderness Additional comments: Left shoulder and upper extremity with discolaration resembling multiple stages of brusiing, tam in place along shoulder line, patient reported to have taken out one of the tam overnight, no oozing or significant blood loss appreciated, left arm in stabilizing sling - Neurological Exam Neurological Exam: Alert Neuro motor strength exam: Right Upper Extremity: 5, Left Lower Extremity: 5, Right Lower Extremity: 5 Additional comments: MOtor and sensory grossly intact, able to move all four extremities, left arm immobilized in sling, neurovascullary intact - Psychiatric Exam Additional comments: patient slightly agitated, poor insight secondary to delirum - Skin Skin Exam: Dry, Warm Additional comments: multiple stages of brusing and healing apparent on left shoulder, surgical incision with tam covered by bandaging, clean, dry Assessment and Plan - Assessment and Plan (Free Text) Assessment: Patient is a 57 year old female with past medical history that includes cirrhosis, HCV, seizure disorder, CKD, COPD, anxiety, depression, HTN, chronic thrombocytopenia, seizure, chronic opiate abuse and esophageal varicies who presented to [facility] with left arm pain secondary to humeral fracture. Patient is s/p left humerus reduction with Dr. Ndiaye. Patient is s/p revision of left humeral fracture, POD #1. Patient noted to be agitated and delrious after surgery and over night. Patient currently with one to one observation for patient safety. Plan: Post operation delirium Details: - Patient s/p Left humerus revision with Othroedic was found to be delerious and with agitation - Geodone given last evening, Pscyh consult placed - Patient without alcoholic drink since admission - Afebrile, no leukocytosis, VSS - Patient given Geodone 25mg last night for agitation Plan: - Continue with one to one observation - Follow up with psychiatry recs - Wrist restraints are ordered for patient safety - Continue to monitor Left humeral fracture Details: - Left arm xray showing anterior dislocation from GH joint, humeral fracture at greater tuberosity - S/p left humerus reduction 12/15/17 - Neurovascular intact - Left upper extremity CT: comminuted fracture of the humeral head with associated large joint effusion, no evidence of GH dislocation, no evidence of bankart fracture Plan: - Revision of left humeral fracture repair with orthopedic surgery, POD 1 - PT, recommending [facility] - SW spoke with [facility] for potential rehab Thrombocytopenia Details: - Chronic history - Plt stable at this time, trending upward - Patient with chronic liver disease Plan: - Avoid thrombocytopenic toxic drugs Substance abuse Details: - History of heroin use - Methadone outpatient with [facility] in [place] Plan: - Continue methadone 45mg as per clinic - Substance abuse cessation education - Patient visitors restricted - Alcohol cessation counseling GI PPX: protonix DVT ppx: SCDS Case and plan reviewed with attending <Germán Harmon - Last Filed: 12/23/17 14:17> Objective - Vital Signs/Intake and Output Vital Signs (last 24 hours): Temp Pulse Resp BP Pulse Ox 97.2 F L 92 H 19 142/95 H 97 12/23/17 09:37 12/23/17 10:07 12/23/17 09:37 12/23/17 10:07 12/23/17 09:37 Intake and Output: 12/23/17 12/23/17 06:59 18:59 Intake Total 660 Output Total 100 Balance 560 - Medications Medications: Current Medications Albuterol/Ipratropium (Duoneb 3 Mg/0.5 Mg (3 Ml) Ud) 3 ml IH [id number] [facility] Last Admin: 12/23/17 13:21 Dose: 3 ml Albuterol/Ipratropium (Duoneb 3 Mg/0.5 Mg (3 Ml) Ud) 3 ml IH Q2H PRN PRN Reason: Shortness of Breath Enoxaparin Sodium (Lovenox) 30 mg SC DAILY [facility] PRN Reason: Protocol Last Admin: 12/23/17 10:09 Dose: 30 mg Famotidine (Pepcid) 20 mg PO 1000,2200 [facility] Last Admin: 12/23/17 10:06 Dose: 20 mg Lorazepam (Ativan) 1 mg IVP Q6H PRN; Protocol PRN Reason: Anxiety Last Admin: 12/22/17 23:54 Dose: 1 mg Lorazepam (Ativan) 1 mg PO Q6 PRN; Protocol PRN Reason: Anxiety Last Admin: 12/22/17 04:24 Dose: 1 mg Methadone HCl (Methadone) 40 mg PO DAILY [facility] Last Admin: 12/23/17 10:05 Dose: 40 mg Methadone HCl (Methadone) 5 mg PO DAILY [facility] Last Admin: 12/23/17 10:06 Dose: 5 mg Oxycodone HCl (Oxycodone Immediate Release Tab) 5 mg PO Q6H PRN PRN Reason: Pain, severe (8-10) Last Admin: 12/23/17 13:53 Dose: 5 mg Polyethylene Glycol (Miralax) 17 gm PO DAILY [facility] Last Admin: 12/23/17 10:09 Dose: Not Given Propranolol HCl (Inderal) 40 mg PO BID [facility] Last Admin: 12/23/17 10:07 Dose: 40 mg Quetiapine Fumarate (Seroquel) 50 mg PO [facility] PRN Reason: Protocol Ziprasidone (Geodon Inj) 10 mg IM BID PRN; Protocol PRN Reason: severe agitation/psychosis - Labs Labs: 12/23/17 08:00 12/23/17 08:00 PT 16.7 SECONDS (9.4-12.5) H 12/14/17 12:45 INR 1.44 (0.93-1.08) H 12/14/17 12:45 APTT 36.9 Seconds (25.1-36.5) H 12/14/17 12:45 Attending/Attestation - Attestation I have personally seen and examined this patient.: Yes I have fully participated in the care of the patient.: Yes I have reviewed all pertinent clinical information, including history, physical exam and plan: Yes Notes (Text): 12/23/17 14:16 57 year old female with PMH of chronic liver disease, alcohol abuse cirrhosis, HCV, ?seizure disorder, COPD, anxiety, depression, chronic thrombocytopenia, and chronic opiate abuse on methadone who was admitted s/p fall likely secondary to ETOH intoxication. Left arm xray showed anterior dislocation from GN joint and humeral fracture at greater tuberosity. Patient is s/p reduction of dislocated shoulder by orthopedics. Repeat CT upper extremity was reviewed as above. Patient is s/p ORIF POD #1. Overnight she had episode of agitation and delirium, improved this morning. She was placed on 1:1 observation. Alcohol withdrawal symptoms have resolved. She in on ativan prn. She was counselled on alcohol cessation. Thrombocytopenia and transaminitis are chronic and stable, close to baseline. Germán Harmon MD Hospitalist.
--- NOTE | 2017-12-23 08:30 | OP ---
PROCEDURE DATE: 12/22/2017 PREOPERATIVE DIAGNOSIS: Displaced greater tuberosity fragment, left shoulder highly comminuted. POSTOPERATIVE DIAGNOSIS: Displaced greater tuberosity fragment, left shoulder highly comminuted. PROCEDURE: Open reduction and internal fixation with a Zip-type device with suturing of the rotator cuff. LINUX SYSTEM ENGINEER SURGEON: Dr. James. ANESTHESIA: General endotracheal tube in a beach-chair position. DESCRIPTION OF PROCEDURE: Patient was taken to the OR, left shoulder prepped and draped in the sterile fashion, given IV antibiotics in a beach chair. With the help of the x-ray, we could see the greater tuberosity was displaced proximally and posteriorly; so, we made a lateral deltoid split incision of the anterior corner of the acromion for 5 cm and going over the laterl ,ant acromion. The deltoid was split. With soft tissue dissection, we split down to the displaced fracture, which was reduced with a towel clip debridement, anterior and distal. We cleaned out the fracture fragments. It was more comminuted than we expected, but we still proceeded with the Zip-type device. We were able to get to in there and then we closed the rotator interval with a #2 FiberWire and then we sutured the fracture fragments distally to the shaft of the humerus with FiberWire. Reduction was not a 100%, but we brought it down from the acromion and brought it anteriorly into the bed of the fracture. Irrigation of the wound with normal saline. Wound was closed in layers fiber wire was used for the rotator interval was closely, we did the fascial layer for deltoid, subcu 2-0 Vicryl and skin with stainless steel tam. Patient was placed in a shoulder immobilizer in good condition.i penetrated my left index finger tip with a k wire. Spenser Ndiaye DO AG
--- NOTE | 2017-12-23 09:52 | RAD ---
PROCEDURE: Fluoroscopy up to 1 hour HISTORY: O.R.I.F. LEFT SHOULDER FX. COMPARISON: TECHNIQUE: Fluoroscopy was provided in the operating room. 15.8 seconds of fluoro time were use. 3.04 mGy cumulative dose. Three images were provided FINDINGS: A fracture is seen in the humeral neck. There is no surgical hardware IMPRESSION: As above
[2017-12-23] MEDS: Enoxaparin 30 mg Syringe SC SCH (10:09)
[2017-12-23] MEDS: POLYETHYLENE GLYCOL 3350 17 GM/Dose PACKET PO SCH (10:09)
[2017-12-23] MEDS: oxyCODONE 5 mg Immediate Release Tab PO PRN ×2 (13:53→20:00)
[2017-12-23 19:00] LABS: HEPATITIS B SURFACE AG Negative (NEGATIVE)
[2017-12-23 19:06] LABS: HEPATITIS A IGM NEGATIVE (NEGATIVE); HEPATITIS B CORE AB NEGATIVE (NEGATIVE)
[2017-12-23 21:26] LABS: HEPATITIS C ANTIBODY REACTIVE (NEGATIVE)
--- NOTE | 2017-12-23 22:04 | CON ---
DATE: HISTORY OF PRESENT ILLNESS: Shortly, the patient is a 57-year-old female with multiple medical issues including stage IV cirrhosis, hepatitis C, alcohol abuse, chronic opioid abuse. The patient is on methadone. The patient also has esophageal varices, peptic ulcer disease, seizure disorder, chronic kidney disease, COPD, anxiety, hypertension. The patient was admitted on the medical side, status post fall and fracture of the left shoulder. The patient is status post surgery, day #1. Psych consult was called for evaluation of episodes of confusion, agitation, and visual hallucinations. This writer producer attempted to speak to the patient, but the patient is in pain, lying with eyes closed, moaning. The patient knows that she is in the hospital, but based on the collateral information from the nursing staff, the patient was confused and had visual hallucinations earlier. The patient is very poor historian at present moment because the patient is medicated. Also, the patient is on pain, lying down, and moaning. Patient is currently on one-to-one. As per one-to-one observation, the patient has episodes of confusion and the patient was trying to pull the arm sling and also remove the bandages. Besides that, no aggression. This writer producer reviewed the previous history. The patient had history of being admitted to the [facility] and most recent was in 07/2017. The patient has alcohol use disorder and polysubstance abuse and depression. As per history, the patient has heroine addiction, Xanax and Klonopin in the past. The patient has multiple detox in the past. The patient was on Lexapro, hydroxyzine in the past. MENTAL STATUS EXAMINATION: As this writer producer described above, the patient has episodes of confusion during the interview. The patient was in pain, moaning, was not able to participate in the interview. The patient knows that she is in the hospital. Patient is aware of the circumstances. The patient is aware that she fell and broke her shoulder. Speech very low, only a few words. Mood: The patient was not able to describe. Thought process: This writer producer was not able to assess, but the patient seems to be in delirium stage and thought process is disorganized. Thought content: Based on the staff, the patient has some visual hallucinations. Insight and judgment seem to be impaired. Impulses are unpredictable. IMPRESSION: The patient seems to be in delirium stage, status post surgery, day #1. The patient has history of polysubstance abuse and dependence, alcohol abuse and dependence, multiple issues, please see the notes for more detailed information. PLAN: The patient needs to be continued on methadone. The patient needs to be continued on current medication. One-to-one should be continued because the patient is very agitated as well as impulses are not predictable and confused. Geodon 10 mg twice a day as needed for severe agitation. Seroquel was started 50 mg at the nighttime for delirium. Methadone should be continued. Pain medication as per medical staff. We will follow up and advise accordingly. Thank you very much for letting me participate in care of your patient. Penny Ferreira MD
[2017-12-24] MEDS: Albuterol-Ipratrop 3 mg / 0.5 (3 ml) UD IH SCH ×4 (02:05→19:41)
[2017-12-24 07:30] LABS: HEMOGLOBIN 10.5 g/dL (12.0-16.0); MEAN CELL VOLUME 93.7 fl (80.0-105.0); MEAN CORPUSCULAR HEMOGLOBIN 31.4 pg (25.0-35.0); MEAN CORPUSCULAR HGB CONC 33.5 g/dl (31.0-37.0); MEAN PLATELET VOLUME 10.9 fl (7.0-11.0); RBC 3.34 10^6/uL (3.5-6.1); RED CELL DISTRIBUTION WIDTH 15.7 % (11.5-14.5); WHITE BLOOD COUNT 7.3 10^3/ul (4.5-11.0)
[2017-12-24 07:48] LABS: ALB/GLOB RATIO 0.7 (1.1-1.8); ALBUMIN 2.7 g/dL (3.0-4.8); ALT/SGPT 40 U/L (7-56); AST/SGOT 60 U/L (14-36); BLOOD UREA NITROGEN 9 mg/dL (7-21); GFR AFRICAN-AMERICAN > 60; GFR NON-AFRICAN AMERICAN > 60
--- NOTE | 2017-12-24 08:35 | RAD ---
HISTORY: fever COMPARISON: 12/14/2017 FINDINGS: LUNGS: No active pulmonary disease. PLEURA: No significant pleural effusion identified, no pneumothorax apparent. CARDIOVASCULAR: Normal. OSSEOUS STRUCTURES: No significant abnormalities. VISUALIZED UPPER ABDOMEN: Normal. OTHER FINDINGS: None. IMPRESSION: No active disease.
--- NOTE | 2017-12-24 08:52 | PN ---
DATE: 12/23/2017 POSTOPERATIVE REPORT SUBJECTIVE: A 57-year-old female in room 362, bed 2. Underwent ORIF of left greater tuberosity fracture with great difficulty as the bone was so comminuted and weakened, and we have to settle for heavy sutures of the rotator cuff and holding in place, but the bone was not salvageable to hold with a screw or plate. She has no fevers, again she is not keepiing on. she will need the sling for 6 to 8 weeks she has good neurologic status and hopefully, we will get her a place to stay soon. Spenser Ndiaye DO MTDD
[2017-12-24] MEDS: POLYETHYLENE GLYCOL 3350 17 GM/Dose PACKET PO SCH (10:00)
[2017-12-24] MEDS: Enoxaparin 30 mg Syringe SC SCH (10:00)
--- NOTE | 2017-12-24 14:54 | CP.PCM.PN ---
<Carlos Hernandez - Last Filed: 12/24/17 16:46> Subjective - Date & Time of Evaluation Date of Evaluation: 12/24/17 Time of Evaluation: 09:10 - Subjective Subjective: Patient seen and evaluated this AM. Patient noted to have temperature of 100.5 overnight. Patient denies chest pain, shortness of breath, cough, abdominal pain , diarrhea, constipation, nausea, chills. Patient noted to have improved mentation from previous 24 hours. Objective - Vital Signs/Intake and Output Vital Signs (last 24 hours): Temp Pulse Resp BP Pulse Ox 100.5 F H 71 20 134/90 96 12/24/17 07:32 12/24/17 07:32 12/24/17 07:32 12/24/17 07:32 12/24/17 07:32 Intake and Output: 12/24/17 12/24/17 06:59 18:59 Intake Total 1020 Output Total 400 Balance 620 - Medications Medications: Current Medications Albuterol/Ipratropium (Duoneb 3 Mg/0.5 Mg (3 Ml) Ud) 3 ml IH [id number] [facility] Last Admin: 12/24/17 14:16 Dose: 3 ml Albuterol/Ipratropium (Duoneb 3 Mg/0.5 Mg (3 Ml) Ud) 3 ml IH Q2H PRN PRN Reason: Shortness of Breath Enoxaparin Sodium (Lovenox) 30 mg SC DAILY [facility] PRN Reason: Protocol Last Admin: 12/24/17 10:00 Dose: Not Given Famotidine (Pepcid) 20 mg PO 1000,2200 [facility] Last Admin: 12/23/17 21:00 Dose: 20 mg Lorazepam (Ativan) 1 mg IVP Q6H PRN; Protocol PRN Reason: Anxiety Last Admin: 12/23/17 20:27 Dose: 1 mg Lorazepam (Ativan) 1 mg PO Q6 PRN; Protocol PRN Reason: Anxiety Last Admin: 12/22/17 04:24 Dose: 1 mg Methadone HCl (Methadone) 40 mg PO DAILY [facility] Last Admin: 12/24/17 10:00 Dose: Not Given Methadone HCl (Methadone) 5 mg PO DAILY [facility] Last Admin: 12/24/17 10:00 Dose: Not Given Oxycodone HCl (Oxycodone Immediate Release Tab) 5 mg PO Q6H PRN PRN Reason: Pain, severe (8-10) Last Admin: 12/23/17 20:00 Dose: 5 mg Polyethylene Glycol (Miralax) 17 gm PO DAILY [facility] Last Admin: 12/24/17 10:00 Dose: Not Given Propranolol HCl (Inderal) 40 mg PO BID [facility] Last Admin: 12/24/17 10:00 Dose: Not Given Quetiapine Fumarate (Seroquel) 50 mg PO HS [facility] PRN Reason: Protocol Last Admin: 12/23/17 21:00 Dose: 50 mg Ziprasidone (Geodon Inj) 10 mg IM BID PRN; Protocol PRN Reason: severe agitation/psychosis Last Admin: 12/23/17 18:22 Dose: 10 mg - Labs Labs: 12/24/17 07:00 12/24/17 07:00 PT 16.7 SECONDS (9.4-12.5) H 12/14/17 12:45 INR 1.44 (0.93-1.08) H 12/14/17 12:45 APTT 36.9 Seconds (25.1-36.5) H 12/14/17 12:45 - Constitutional Appears: Other (patient resting in bed diagonally ) - Head Exam Head Exam: ATRAUMATIC, NORMAL INSPECTION, NORMOCEPHALIC - Eye Exam Eye Exam: EOMI, PERRL - Respiratory Exam Respiratory Exam: Clear to Ausculation Bilateral, NORMAL BREATHING PATTERN. absent: Rhonchi, Wheezes - Cardiovascular Exam Cardiovascular Exam: REGULAR RHYTHM, +S1, +S2 - GI/Abdominal Exam GI & Abdominal Exam: Soft, Normal Bowel Sounds. absent: Tenderness - Extremities Exam Additional comments: left upper extremity out of orthopedic immobilizing sling, multiple bruises present on left shoulder, bandage in place c/d/i, neurovascularly intact - Neurological Exam Neurological Exam: Alert, Awake Additional comments: left upper extremity motor and sensory intact, able to move all four extremities , motor and sensory grossly intact - Psychiatric Exam Additional comments: alert and oriented, mentation noted to be lethargic compared to baseline - Skin Skin Exam: Dry, Warm Additional comments: bruising of left shoulder Assessment and Plan - Assessment and Plan (Free Text) Assessment: Patient is a 57 year old female with past medical history that includes cirrhosis, HCV, seizure disorder, CKD, COPD, anxiety, depression, HTN, chronic thrombocytopenia, seizure, chronic opiate abuse and esophageal varicies who presented to [facility] ED with left arm pain secondary to humeral fracture. Patient is s/p left humerus reduction with Dr. Ndiaye. Patient is s/p revision of left humeral fracture. Plan: Post operation fever Details: - POD #2 - Patient with 100.5F this AM - No leukocytosis, cough, diarrhea, chills, shortness of breath - UA showing mild leuk est - CXR no acute disease Plan: - Urine culture - Motrin 600mg stat - Rocephin - touch base with Orthopedic surgery for abx recommendations Agitation Details: - Psych consulted - Afebrile, no leukocytosis, VSS Plan: - Seroquel 25mg PO [facility] PRN - Geodone 10mg BID prn per psych - Continue to monitor Left humeral fracture Details: - Left arm xray showing anterior dislocation from GH joint, humeral fracture at greater tuberosity - S/p left humerus reduction 12/14/17 - Neurovascular intact - Left upper extremity CT: comminuted fracture of the humeral head with associated large joint effusion, no evidence of GH dislocation, no evidence of bankart fracture - S/p reduction of left shoulder 12/22/2017 Plan: - Revision of left humeral fracture repair with orthopedic surgery, f/u recs - PT, recommending [facility] - spoke with [facility] for potential rehab - Continue immobilization therapy Thrombocytopenia Details: - Chronic history - Plt stable at this time - Patient with chronic liver disease Plan: - Avoid thrombocytopenic toxic drugs Substance abuse Details: - History of heroin use - Methadone outpatient with [facility] in [place] Plan: - Continue methadone 45mg as per clinic - Substance abuse cessation education - Patient visitors restricted - Alcohol cessation counseling GI PPX: protonix DVT ppx: SCDS Case and plan reviewed with attending <Germán Harmon - Last Filed: 12/24/17 17:09> Objective - Vital Signs/Intake and Output Vital Signs (last 24 hours): Temp Pulse Resp BP Pulse Ox 100.5 F H 71 20 134/90 96 12/24/17 07:32 12/24/17 07:32 12/24/17 07:32 12/24/17 07:32 12/24/17 07:32 Intake and Output: 12/24/17 12/24/17 06:59 18:59 Intake Total 1020 Output Total 400 Balance 620 - Medications Medications: Current Medications Albuterol/Ipratropium (Duoneb 3 Mg/0.5 Mg (3 Ml) Ud) 3 ml IH [id number] [facility] Last Admin: 12/24/17 14:16 Dose: 3 ml Albuterol/Ipratropium (Duoneb 3 Mg/0.5 Mg (3 Ml) Ud) 3 ml IH Q2H PRN PRN Reason: Shortness of Breath Enoxaparin Sodium (Lovenox) 30 mg SC DAILY [facility] PRN Reason: Protocol Last Admin: 12/24/17 10:00 Dose: Not Given Famotidine (Pepcid) 20 mg PO 1000,2200 [facility] Last Admin: 12/23/17 21:00 Dose: 20 mg Ceftriaxone Sodium (Rocephin 1 Gram Ivpb) 1 gm in 100 mls @ 100 mls/hr IVPB DAILY [facility] PRN Reason: Protocol Lorazepam (Ativan) 1 mg IVP Q6H PRN; Protocol PRN Reason: Anxiety Last Admin: 12/23/17 20:27 Dose: 1 mg Lorazepam (Ativan) 1 mg PO Q6 PRN; Protocol PRN Reason: Anxiety Last Admin: 12/22/17 04:24 Dose: 1 mg Methadone HCl (Methadone) 40 mg PO DAILY [facility] Last Admin: 12/24/17 10:00 Dose: Not Given Methadone HCl (Methadone) 5 mg PO DAILY [facility] Last Admin: 12/24/17 10:00 Dose: Not Given Oxycodone HCl (Oxycodone Immediate Release Tab) 5 mg PO Q6H PRN PRN Reason: Pain, severe (8-10) Last Admin: 12/23/17 20:00 Dose: 5 mg Polyethylene Glycol (Miralax) 17 gm PO DAILY [facility] Last Admin: 12/24/17 10:00 Dose: Not Given Propranolol HCl (Inderal) 40 mg PO BID [facility] Last Admin: 12/24/17 10:00 Dose: Not Given Quetiapine Fumarate (Seroquel) 25 mg PO HS PRN; Protocol PRN Reason: Agitation Ziprasidone (Geodon Inj) 10 mg IM BID PRN; Protocol PRN Reason: severe agitation/psychosis Last Admin: 12/23/17 18:22 Dose: 10 mg - Labs Labs: 12/24/17 07:00 12/24/17 07:00 PT 16.7 SECONDS (9.4-12.5) H 12/14/17 12:45 INR 1.44 (0.93-1.08) H 12/14/17 12:45 APTT 36.9 Seconds (25.1-36.5) H 12/14/17 12:45 Attending/Attestation - Attestation I have personally seen and examined this patient.: Yes I have fully participated in the care of the patient.: Yes I have reviewed all pertinent clinical information, including history, physical exam and plan: Yes Notes (Text): 12/24/17 17:05 57 year old female with PMH of chronic liver disease, alcohol abuse cirrhosis, HCV, ?seizure disorder, COPD, anxiety, depression, chronic thrombocytopenia, and chronic opiate abuse on methadone who was admitted s/p fall likely secondary to ETOH intoxication. Left arm xray showed anterior dislocation from GN joint and humeral fracture at greater tuberosity. Patient is s/p reduction of dislocated shoulder by orthopedics and also s/p ORIF POD #2. Hospital course was complicated with post-op delirium which is now improved. She was lethargic earlier this morning, but now at her baseline this afternoon. She received seroquel and geodon yesterday evening. Case was discussed with Dr. Robb who agrees changing seroquel to prn hs and monitoring. Alcohol withdrawal symptoms have resolved. She in on ativan prn. She is on multivitamin, folic acid and thiamine. She was counselled on alcohol cessation. Thrombocytopenia and transaminitis are chronic and stable, close to baseline. Germán Harmon MD Hospitalist.
[2017-12-24 15:14] LABS: URINE BILIRUBIN SMALL (NEGATIVE); URINE BLOOD NEGATIVE (NEGATIVE); URINE GLUCOSE (UA) 100 mg/dL (NEGATIVE); URINE LEUKOCYTE ESTERASE SMALL Leu/uL (NEGATIVE); URINE PROTEIN TRACE mg/dL (<30 mg/dL); URINE UROBILINOGEN >=8.0 E.U./dL (<1 E.U./dL)
[2017-12-24 15:19] LABS: URINE COLOR LIGHT BROWN (YELLOW)
[2017-12-24 15:20] LABS: URINE APPEARANCE SLIGHT-CLOUDY (CLEAR)
[2017-12-24 15:26] LABS: URINE BACTERIA MOD (NEG); URINE RBC 0 - 2 /hpf (0-2)
--- NOTE | 2017-12-24 16:05 | PN ---
DATE: 12/24/2017 FOLLOWUP NOTE SUBJECTIVE: The patient was followed up today. The patient is still in delirium stage. The patient was not able to hold the conversation. The patient is status post medication. The patient still has episodes of confusion, restless behavior, agitation for what she is getting p.r.n. medication, Geodon. Collaterals from the nursing staff, since the morning time, the patient is sleepy, no behavioral disturbances. The patient vital signs are stable, but the patient has spike of fever, pulse is 71, blood pressure 134/90, respirations 20, oxygen saturation is 96, temperature 100.5. Medications reviewed. The patient is on DuoNeb, Lovenox, Pepcid, Ativan 1 mg IV push every 6 hours p.r.n., the patient got dose on 12/23/2017 at 08:27, 1 mg p.o. every 6 hours p.r.n., the last dose was on 12/22/2017. The patient is on methadone, MiraLax and Inderal. Geodon was started yesterday. The patient got one dose on 12/23/2017 at 06:22. Seroquel was started at the nighttime. Labs reviewed. The patient had hemoglobin and hematocrit 10.5 and 31.3. Coagulation reviewed. Chemistry reviewed. Toxicology reviewed. Alcohol level was 70 at the time of admission. Serology reviewed. MENTAL STATUS EXAMINATION: The patient was not able to hold conversation. Seems to be medicated and lethargic. The patient still has episodes of confusion and agitation, most likely the patient is in delirium state. IMPRESSION: Most likely, the patient has multifactorial delirium status post surgery. The patient has polysubstance abuse and dependence. The patient is on methadone. PLAN: Continue current management. Continue current medication. Methadone should be continued. Ativan should be continued to avoid withdrawal symptoms. We will monitor the patient closely and advise accordingly. Geodon as needed for agitation as well as Seroquel at the nighttime scheduled. Thank you very much for letting me participate in the care of your patient. Penny Ferreira MD [facility] # [id number]
[2017-12-24] MEDS: cefTRIAXone 1 gm 1 GM/100 ML BAG IVPB SCH (18:50)
--- NOTE | 2017-12-24 21:20 | CP.PCM.PN ---
Subjective - Date & Time of Evaluation Date of Evaluation: 12/24/17 Time of Evaluation: 21:19 - Subjective Subjective: # 24 angiocath was inserted in right hand. Dx:Poor venous access. Objective - Vital Signs/Intake and Output Vital Signs (last 24 hours): Temp Pulse Resp BP Pulse Ox 98.4 F 71 20 104/72 96 12/24/17 16:00 12/24/17 18:49 12/24/17 16:00 12/24/17 18:49 12/24/17 16:00 - Medications Medications: Current Medications Albuterol/Ipratropium (Duoneb 3 Mg/0.5 Mg (3 Ml) Ud) 3 ml IH [id number] [facility] Last Admin: 12/24/17 19:41 Dose: 3 ml Albuterol/Ipratropium (Duoneb 3 Mg/0.5 Mg (3 Ml) Ud) 3 ml IH Q2H PRN PRN Reason: Shortness of Breath Enoxaparin Sodium (Lovenox) 30 mg SC DAILY [facility] PRN Reason: Protocol Last Admin: 12/24/17 10:00 Dose: Not Given Famotidine (Pepcid) 20 mg PO 1000,2200 [facility] Last Admin: 12/24/17 10:00 Dose: Not Given Folic Acid (Folic Acid) 1 mg PO DAILY [facility] Ceftriaxone Sodium (Rocephin 1 Gram Ivpb) 1 gm in 100 mls @ 100 mls/hr IVPB DAILY [facility] PRN Reason: Protocol Last Admin: 12/24/17 18:50 Dose: 100 mls/hr Lorazepam (Ativan) 1 mg IVP Q6H PRN; Protocol PRN Reason: Anxiety Last Admin: 12/23/17 20:27 Dose: 1 mg Lorazepam (Ativan) 1 mg PO Q6 PRN; Protocol PRN Reason: Anxiety Last Admin: 12/22/17 04:24 Dose: 1 mg Methadone HCl (Methadone) 40 mg PO DAILY [facility] Last Admin: 12/24/17 10:00 Dose: Not Given Methadone HCl (Methadone) 5 mg PO DAILY [facility] Last Admin: 12/24/17 10:00 Dose: Not Given Multivitamins (Thera Tab) 1 tab PO 0800 [facility] Oxycodone HCl (Oxycodone Immediate Release Tab) 5 mg PO Q6H PRN PRN Reason: Pain, severe (8-10) Last Admin: 12/23/17 20:00 Dose: 5 mg Polyethylene Glycol (Miralax) 17 gm PO DAILY [facility] Last Admin: 12/24/17 10:00 Dose: Not Given Propranolol HCl (Inderal) 40 mg PO BID [facility] Last Admin: 12/24/17 18:49 Dose: 40 mg Quetiapine Fumarate (Seroquel) 25 mg PO HS PRN; Protocol PRN Reason: Agitation Thiamine HCl (Vitamin B1 Tab) 100 mg PO DAILY [facility] Ziprasidone (Geodon Inj) 10 mg IM BID PRN; Protocol PRN Reason: severe agitation/psychosis Last Admin: 12/23/17 18:22 Dose: 10 mg - Labs Labs: 12/24/17 07:00 12/24/17 07:00 PT 16.7 SECONDS (9.4-12.5) H 12/14/17 12:45 INR 1.44 (0.93-1.08) H 12/14/17 12:45 APTT 36.9 Seconds (25.1-36.5) H 12/14/17 12:45
[2017-12-24] MEDS: oxyCODONE 5 mg Immediate Release Tab PO PRN (23:07)
[2017-12-25 02:03] LABS: HEMOGLOBIN 10.7 g/dL (12.0-16.0); MEAN CELL VOLUME 95.9 fl (80.0-105.0); MEAN CORPUSCULAR HEMOGLOBIN 31.2 pg (25.0-35.0); MEAN CORPUSCULAR HGB CONC 32.5 g/dl (31.0-37.0); MEAN PLATELET VOLUME 10.9 fl (7.0-11.0); RBC 3.43 10^6/uL (3.5-6.1); RED CELL DISTRIBUTION WIDTH 15.9 % (11.5-14.5); WHITE BLOOD COUNT 7.5 10^3/ul (4.5-11.0)
[2017-12-25 02:32] LABS: ALB/GLOB RATIO 0.7 (1.1-1.8); ALBUMIN 2.9 g/dL (3.0-4.8); ALT/SGPT 39 U/L (7-56); AST/SGOT 72 U/L (14-36); BLOOD UREA NITROGEN 12 mg/dL (7-21); CALCIUM 7.9 mg/dL (8.4-10.5); GFR AFRICAN-AMERICAN > 60; GFR NON-AFRICAN AMERICAN > 60
[2017-12-25] MEDS: Albuterol-Ipratrop 3 mg / 0.5 (3 ml) UD IH SCH ×3 (08:01→20:21)
--- NOTE | 2017-12-25 11:54 | CP.PCM.PN ---
<Carlos Hernandez - Last Filed: 12/25/17 13:07> Subjective - Date & Time of Evaluation Date of Evaluation: 12/25/17 Time of Evaluation: 07:30 - Subjective Subjective: Patient seen and examined this AM. Overnight code mota was called for agitation , patient was given Ativan, methadone. Patient resting comfortably in bed this AM. Able to state place, name, year. Patient has no complaints at time of interview. Objective - Vital Signs/Intake and Output Vital Signs (last 24 hours): Temp Pulse Resp BP Pulse Ox 99.6 F 78 18 118/74 94 L 12/25/17 08:02 12/25/17 08:02 12/25/17 08:02 12/25/17 08:02 12/25/17 08:02 Intake and Output: 12/25/17 12/25/17 06:59 18:59 Intake Total 600 Output Total 650 Balance -50 - Medications Medications: Current Medications Albuterol/Ipratropium (Duoneb 3 Mg/0.5 Mg (3 Ml) Ud) 3 ml IH [id number] [facility] Last Admin: 12/25/17 08:01 Dose: Not Given Albuterol/Ipratropium (Duoneb 3 Mg/0.5 Mg (3 Ml) Ud) 3 ml IH Q2H PRN PRN Reason: Shortness of Breath Enoxaparin Sodium (Lovenox) 30 mg SC DAILY [facility] PRN Reason: Protocol Last Admin: 12/24/17 10:00 Dose: Not Given Famotidine (Pepcid) 20 mg PO 1000,2200 [facility] Last Admin: 12/24/17 22:01 Dose: 20 mg Folic Acid (Folic Acid) 1 mg PO DAILY [facility] Ceftriaxone Sodium (Rocephin 1 Gram Ivpb) 1 gm in 100 mls @ 100 mls/hr IVPB DAILY [facility] PRN Reason: Protocol Last Admin: 12/24/17 18:50 Dose: 100 mls/hr Lorazepam (Ativan) 1 mg IVP Q6H PRN; Protocol PRN Reason: Anxiety Last Admin: 12/24/17 23:07 Dose: 1 mg Lorazepam (Ativan) 1 mg PO Q6 PRN; Protocol PRN Reason: Anxiety Last Admin: 12/22/17 04:24 Dose: 1 mg Methadone HCl (Methadone) 20 mg PO BID [facility] Multivitamins (Thera Tab) 1 tab PO 0800 [facility] Oxycodone HCl (Oxycodone Immediate Release Tab) 5 mg PO Q6H PRN PRN Reason: Pain, severe (8-10) Last Admin: 12/24/17 23:07 Dose: 5 mg Polyethylene Glycol (Miralax) 17 gm PO DAILY [facility] Last Admin: 12/24/17 10:00 Dose: Not Given Propranolol HCl (Inderal) 40 mg PO BID [facility] Last Admin: 12/24/17 18:49 Dose: 40 mg Quetiapine Fumarate (Seroquel) 25 mg PO HS PRN; Protocol PRN Reason: Agitation Thiamine HCl (Vitamin B1 Tab) 100 mg PO DAILY [facility] Ziprasidone (Geodon Inj) 10 mg IM BID PRN; Protocol PRN Reason: severe agitation/psychosis Last Admin: 12/23/17 18:22 Dose: 10 mg - Labs Labs: 12/25/17 01:45 12/25/17 01:45 PT 16.7 SECONDS (9.4-12.5) H 12/14/17 12:45 INR 1.44 (0.93-1.08) H 12/14/17 12:45 APTT 36.9 Seconds (25.1-36.5) H 12/14/17 12:45 - Constitutional Appears: No Acute Distress - Head Exam Head Exam: ATRAUMATIC, NORMAL INSPECTION, NORMOCEPHALIC - Eye Exam Eye Exam: EOMI, PERRL - Respiratory Exam Respiratory Exam: Clear to Ausculation Bilateral, NORMAL BREATHING PATTERN. absent: Rales, Rhonchi, Wheezes - Cardiovascular Exam Cardiovascular Exam: REGULAR RHYTHM, +S1, +S2 - GI/Abdominal Exam GI & Abdominal Exam: Soft, Normal Bowel Sounds. absent: Guarding, Rigid, Tenderness - Extremities Exam Extremities Exam: Normal Capillary Refill. absent: Pedal Edema Additional comments: Left upper extremity with bandage clean/dry/intact, bruising present on left upper shoulder, left upper extremity immobilized in sling, neuromuscular intact - Neurological Exam Neurological Exam: Alert Additional comments: Patient somnolent on exam, motor and sensory grossly intact, able to follow simple commands, moves all four extremities - Psychiatric Exam Additional comments: somnolent, AAOx3 - Skin Skin Exam: Dry, Warm Additional comments: bruising present on left shoulder Assessment and Plan - Assessment and Plan (Free Text) Assessment: Patient is a 57 year old female with past medical history that includes cirrhosis, HCV, seizure disorder, CKD, COPD, anxiety, depression, HTN, chronic thrombocytopenia, seizure, chronic opiate abuse and esophageal varicies who presented to [facility] with left arm pain secondary to humeral fracture. Patient is s/p left humerus reduction with Dr. Ndiaye. Patient is s/p revision of left humeral fracture. Plan: Agitation Details: - Agitation primary at night, last evening Code Mota called for agitation - Psych consulted - Afebrile, no leukocytosis, VSS Plan: - Seroquel 25mg PO QHS PRN - Geodone 10mg BID prn per psych - Ativan 1mg Q6H prn - Methadone 20mg BID - Continue to monitor - Medication reconciliation with nurse and psychiatry Left humeral fracture Details: - Left arm xray showing anterior dislocation from GH joint, humeral fracture at greater tuberosity - S/p left humerus reduction 12/14/17 - Neurovascular intact - Left upper extremity CT: comminuted fracture of the humeral head with associated large joint effusion, no evidence of GH dislocation, no evidence of bankart fracture - S/p reduction of left shoulder 12/22/2017 Plan: - Revision of left humeral fracture repair with orthopedic surgery, f/u recs - PT, recommending [facility] - spoke with [facility] for potential rehab, will need transportation Thursday - Continue immobilization therapy Thrombocytopenia Details: - Chronic history - Plt stable at this time - Patient with chronic liver disease Plan: - Avoid thrombocytopenic toxic drugs Substance abuse Details: - History of heroin use - Methadone outpatient with [facility] in [place] Plan: - Continue methadone 45mg as per clinic - Substance abuse cessation education - Patient visitors restricted - Alcohol cessation counseling Post operation fever Details: - Patient afebrile - No leukocytosis, cough, diarrhea, chills, shortness of breath - UA showing mild leuk est - CXR no acute disease Plan: - Urine culture - Motrin 600mg stat - Rocephin - touch base with Orthopedic surgery for abx recommendations GI PPX: protonix DVT ppx: SCDS, lovenox Case and plan reviewed with attending <Germán Harmon - Last Filed: 12/25/17 14:27> Objective - Vital Signs/Intake and Output Vital Signs (last 24 hours): Temp Pulse Resp BP Pulse Ox 99.6 F 78 18 118/74 94 L 12/25/17 08:02 12/25/17 12:00 12/25/17 08:02 12/25/17 12:00 12/25/17 08:02 Intake and Output: 12/25/17 12/25/17 06:59 18:59 Intake Total 600 Output Total 650 Balance -50 - Medications Medications: Current Medications Albuterol/Ipratropium (Duoneb 3 Mg/0.5 Mg (3 Ml) Ud) 3 ml IH [id number] [facility] Last Admin: 12/25/17 14:11 Dose: Not Given Albuterol/Ipratropium (Duoneb 3 Mg/0.5 Mg (3 Ml) Ud) 3 ml IH Q2H PRN PRN Reason: Shortness of Breath Enoxaparin Sodium (Lovenox) 30 mg SC DAILY [facility] PRN Reason: Protocol Last Admin: 12/25/17 12:02 Dose: 30 mg Famotidine (Pepcid) 20 mg PO 1000,2200 [facility] Last Admin: 12/25/17 12:03 Dose: 20 mg Folic Acid (Folic Acid) 1 mg PO DAILY [facility] Last Admin: 12/25/17 12:00 Dose: 1 mg Ceftriaxone Sodium (Rocephin 1 Gram Ivpb) 1 gm in 100 mls @ 100 mls/hr IVPB DAILY [facility] PRN Reason: Protocol Last Admin: 12/25/17 12:02 Dose: 100 mls/hr Lorazepam (Ativan) 1 mg IVP Q6H PRN; Protocol PRN Reason: Anxiety Last Admin: 12/24/17 23:07 Dose: 1 mg Lorazepam (Ativan) 1 mg PO Q6 PRN; Protocol PRN Reason: Anxiety Last Admin: 12/22/17 04:24 Dose: 1 mg Methadone HCl (Methadone) 20 mg PO BID [facility] Multivitamins (Thera Tab) 1 tab PO 0800 [facility] Last Admin: 12/25/17 12:00 Dose: 1 tab Oxycodone HCl (Oxycodone Immediate Release Tab) 5 mg PO Q6H PRN PRN Reason: Pain, severe (8-10) Last Admin: 12/24/17 23:07 Dose: 5 mg Polyethylene Glycol (Miralax) 17 gm PO DAILY [facility] Last Admin: 12/25/17 12:02 Dose: 17 gm Propranolol HCl (Inderal) 40 mg PO BID [facility] Last Admin: 12/25/17 12:00 Dose: 40 mg Quetiapine Fumarate (Seroquel) 25 mg PO HS PRN; Protocol PRN Reason: Agitation Thiamine HCl (Vitamin B1 Tab) 100 mg PO DAILY [facility] Last Admin: 12/25/17 11:59 Dose: 100 mg Ziprasidone (Geodon Inj) 10 mg IM BID PRN; Protocol PRN Reason: severe agitation/psychosis Last Admin: 12/25/17 13:57 Dose: 10 mg - Labs Labs: 12/25/17 01:45 12/25/17 01:45 PT 16.7 SECONDS (9.4-12.5) H 12/14/17 12:45 INR 1.44 (0.93-1.08) H 12/14/17 12:45 APTT 36.9 Seconds (25.1-36.5) H 12/14/17 12:45 Attending/Attestation - Attestation I have personally seen and examined this patient.: Yes I have fully participated in the care of the patient.: Yes I have reviewed all pertinent clinical information, including history, physical exam and plan: Yes Notes (Text): 12/25/17 14:25 57 year old female with PMH of chronic liver disease, alcohol abuse cirrhosis, HCV, ?seizure disorder, COPD, anxiety, depression, chronic thrombocytopenia, and chronic opiate abuse on methadone who was admitted s/p fall likely secondary to ETOH intoxication. Left arm xray showed anterior dislocation from GN joint and humeral fracture at greater tuberosity. Patient is s/p reduction of dislocated shoulder by orthopedics and also s/p ORIF POD #3. Hospital course was complicated with post-op delirium. Overnight events were reviewed. Case was discussed with Dr. Robb who recommends continue with seroquel and geodon prn and switch methadone to bid rather than HS. Will continue to monitor mental status. She is on ceftriaxone also for possible UTI while awaiting Ucx. She was counselled on alcohol cessation. She is on multivitamin, folic acid and thiamine. Thrombocytopenia and transaminitis are chronic and stable, close to baseline. Germán Harmon MD Hospitalist.
[2017-12-25] MEDS: Multivitamin Therapeutic Tab PO SCH (12:00)
[2017-12-25] MEDS: Enoxaparin 30 mg Syringe SC SCH (12:02)
[2017-12-25] MEDS: POLYETHYLENE GLYCOL 3350 17 GM/Dose PACKET PO SCH (12:02)
[2017-12-25] MEDS: cefTRIAXone 1 gm 1 GM/100 ML BAG IVPB SCH (12:02)
--- NOTE | 2017-12-25 14:54 | PN ---
DATE: 12/25/2017 FOLLOWUP NOTE SUBJECTIVE: The patient developed fever and was found to have urinary tract infection. Right now, the patient is on antibiotics. The patient needed to be medicated overnight because the patient was severely agitated, in delirium stage and discharge was held. This chief writer is following up on this patient at the morning time. As per report, the patient got methadone at the nighttime at 02:00 a.m. and this chief writer recommend to split the dose into two doses to 20 mg twice a day. Discussed with Dr. Harmon. This chief writer attempted to speak to the patient, but the patient is status post medication, very hard to be aroused, but the patient is breathing without any distress. Vital signs reviewed. Temperature 99.6, pulse 78, blood pressure 118/74, respirations 18, oxygen saturation is 94. Medications reviewed. The patient is on DuoNeb, Rocephin, Lovenox, Pepcid, folic acid, Ativan 1 mg p.o. daily as well as 1 mg IV push every 6 hours p.r.n. for anxiety, 1 mg p.o. every 6 hours p.r.n. for anxiety. Methadone will be split into 20 mg twice a day, multivitamins, oxycodone, MiraLax, Inderal, Seroquel 25 mg at the nighttime p.r.n. for agitation and vitamin B1 daily, Geodon 10 mg twice a day as needed for severe agitation. Labs reviewed. Urinalysis showed infection. MENTAL STATUS EXAMINATION: The patient is lethargic, status post medication, Geodon as well as methadone, but earlier the patient was agitated, hallucinating and aggressive. Discharge was held. The patient seems to be in delirium stage. IMPRESSION: Multifactorial delirium. The patient has polysubstance abuse and dependent. The patient is status post fall and surgery on the left shoulder and the patient is status post reduction of left shoulder dislocation. The patient also developed urinary tract infection, which could be contributed to the patient's presentation. PLAN: P.r.n. medication of Ativan, methadone was split into 20 mg twice a day, Geodon 10 mg twice a day IM for agitation aggression. Please address all of the medical issues and delirium could be improved. Meanwhile, we will follow up and advise accordingly. Thank you very much for letting me participate in the care of your patient. Penny Ferreira MD
[2017-12-26] MEDS: Albuterol-Ipratrop 3 mg / 0.5 (3 ml) UD IH SCH ×5 (01:17→20:30)
[2017-12-26 06:54] LABS: HEMOGLOBIN 11.1 g/dL (12.0-16.0); MEAN CELL VOLUME 95.2 fl (80.0-105.0); MEAN CORPUSCULAR HEMOGLOBIN 31.4 pg (25.0-35.0); MEAN PLATELET VOLUME 11.2 fl (7.0-11.0); RBC 3.53 10^6/uL (3.5-6.1); RED CELL DISTRIBUTION WIDTH 15.8 % (11.5-14.5); WHITE BLOOD COUNT 5.5 10^3/ul (4.5-11.0)
[2017-12-26 07:41] LABS: BLOOD UREA NITROGEN 9 mg/dL (7-21); CALCIUM 8.3 mg/dL (8.4-10.5); GFR AFRICAN-AMERICAN > 60; GFR NON-AFRICAN AMERICAN > 60
[2017-12-26 08:09] VITALS: O2SAT 97
[2017-12-26] MEDS: Multivitamin Therapeutic Tab PO SCH (08:44)
[2017-12-26] MEDS: Enoxaparin 30 mg Syringe SC SCH (10:18)
[2017-12-26] MEDS: cefTRIAXone 1 gm 1 GM/100 ML BAG IVPB SCH (10:19)
[2017-12-26] MEDS: POLYETHYLENE GLYCOL 3350 17 GM/Dose PACKET PO SCH (10:19)
--- NOTE | 2017-12-26 11:04 | CP.PCM.PN ---
<Alyssa Wilson - Last Filed: 12/26/17 13:11> Subjective - Date & Time of Evaluation Date of Evaluation: 12/26/17 Time of Evaluation: 11:04 - Subjective Subjective: Internal Medicine Progress Note: Patient seen and examined at bedside. Per nursing patient was agitated last night, yelling at the staff. Was given ativan and seroquel. At this time patient is resting in bed sleeping. Unable to maintain conversation and answer questions appropriately. Denies any complaints at this time. Objective - Vital Signs/Intake and Output Vital Signs (last 24 hours): Temp Pulse Resp BP Pulse Ox 98.7 F 74 18 135/91 H 97 12/26/17 06:00 12/26/17 06:00 12/26/17 06:00 12/26/17 06:00 12/26/17 06:00 Intake and Output: 12/26/17 12/26/17 06:59 18:59 Intake Total 360 Balance 360 - Medications Medications: Current Medications Albuterol/Ipratropium (Duoneb 3 Mg/0.5 Mg (3 Ml) Ud) 3 ml IH [id number] [facility] Last Admin: 12/26/17 07:51 Dose: Not Given Albuterol/Ipratropium (Duoneb 3 Mg/0.5 Mg (3 Ml) Ud) 3 ml IH Q2H PRN PRN Reason: Shortness of Breath Enoxaparin Sodium (Lovenox) 30 mg SC DAILY [facility] PRN Reason: Protocol Last Admin: 12/26/17 10:18 Dose: 30 mg Famotidine (Pepcid) 20 mg PO 1000,2200 [facility] Last Admin: 12/26/17 10:19 Dose: 20 mg Folic Acid (Folic Acid) 1 mg PO DAILY [facility] Last Admin: 12/26/17 10:18 Dose: 1 mg Ceftriaxone Sodium (Rocephin 1 Gram Ivpb) 1 gm in 100 mls @ 100 mls/hr IVPB DAILY [facility] PRN Reason: Protocol Last Admin: 12/26/17 10:19 Dose: 100 mls/hr Lactulose (Enulose) 20 gm PO ONCE STA Stop: 12/26/17 11:04 Lorazepam (Ativan) 1 mg PO Q6 PRN; Protocol PRN Reason: Anxiety Last Admin: 12/22/17 04:24 Dose: 1 mg Lorazepam (Ativan) 1 mg IM Q6H PRN; Protocol PRN Reason: Anxiety Last Admin: 12/26/17 05:56 Dose: 1 mg Methadone HCl (Methadone) 20 mg PO BID [facility] Last Admin: 12/26/17 10:19 Dose: 20 mg Multivitamins (Thera Tab) 1 tab PO 0800 [facility] Last Admin: 12/26/17 08:44 Dose: 1 tab Oxycodone HCl (Oxycodone Immediate Release Tab) 5 mg PO Q6H PRN PRN Reason: Pain, severe (8-10) Last Admin: 12/24/17 23:07 Dose: 5 mg Polyethylene Glycol (Miralax) 17 gm PO DAILY [facility] Last Admin: 12/26/17 10:19 Dose: 17 gm Propranolol HCl (Inderal) 40 mg PO BID [facility] Last Admin: 12/26/17 10:18 Dose: 40 mg Quetiapine Fumarate (Seroquel) 25 mg PO HS PRN; Protocol PRN Reason: Agitation Last Admin: 12/25/17 23:03 Dose: 25 mg Thiamine HCl (Vitamin B1 Tab) 100 mg PO DAILY [facility] Last Admin: 12/26/17 10:20 Dose: 100 mg Ziprasidone (Geodon Inj) 10 mg IM BID PRN; Protocol PRN Reason: severe agitation/psychosis Last Admin: 12/25/17 13:57 Dose: 10 mg - Labs Labs: 12/26/17 06:30 12/26/17 06:30 PT 16.7 SECONDS (9.4-12.5) H 12/14/17 12:45 INR 1.44 (0.93-1.08) H 12/14/17 12:45 APTT 36.9 Seconds (25.1-36.5) H 12/14/17 12:45 - Additional Findings Additional findings: - Constitutional Appears: No Acute Distress - Head Exam Head Exam: ATRAUMATIC, NORMAL INSPECTION, NORMOCEPHALIC - Eye Exam Eye Exam: EOMI, PERRL - Respiratory Exam Respiratory Exam: Clear to Ausculation Bilateral, NORMAL BREATHING PATTERN. absent: Rales, Rhonchi, Wheezes - Cardiovascular Exam Cardiovascular Exam: REGULAR RHYTHM, +S1, +S2 - GI/Abdominal Exam GI & Abdominal Exam: Soft, Normal Bowel Sounds. absent: Guarding, Rigid, Tenderness - Extremities Exam Extremities Exam: Normal Capillary Refill. absent: Pedal Edema Additional comments: Left upper extremity with bandage clean/dry/intact, bruising present on left upper shoulder, left upper extremity immobilized in sling, neuromuscular intact - Neurological Exam Neurological Exam: Alert Additional comments: Patient somnolent on exam, motor and sensory grossly intact, able to follow simple commands, moves all four extremities - Psychiatric Exam Additional comments: somnolent, AAOx3 - Skin Skin Exam: Dry, Warm Assessment and Plan - Assessment and Plan (Free Text) Assessment: Patient is a 57 year old female with past medical history that includes cirrhosis, HCV, seizure disorder, CKD, COPD, anxiety, depression, HTN, chronic thrombocytopenia, seizure, chronic opiate abuse and esophageal varicies who presented to [facility] [place] [facility] with left arm pain secondary to humeral fracture. Patient is s/p left humerus reduction with Dr. Ndiaye. Patient is s/p revision of left humeral fracture. Plan: Post-op delirum/Agitation - Agitation primary at night, last evening Code Tristan called for agitation - Psych consulted - Afebrile, no leukocytosis, VSS - Seroquel 25mg PO QHS PRN - Geodon 10mg BID prn per psych - Ativan 1mg Q6H prn - Methadone 20mg BID - Ammonia 39 this morning, Lactulose 20mg x 1 ordered - Continue to monitor Left humeral fracture - Left arm xray showing anterior dislocation from GH joint, humeral fracture at greater tuberosity - S/p left humerus reduction 12/14/17 - Neurovascular intact - Left upper extremity CT: comminuted fracture of the humeral head with associated large joint effusion, no evidence of GH dislocation, no evidence of bankart fracture - S/p reduction of left shoulder 12/22/2017 - Revision of left humeral fracture repair with orthopedic surgery, f/u recs - PT, recommending [facility] - SW spoke with [facility] for potential rehab, will need transportation Thursday - Continue immobilization therapy Thrombocytopenia - Chronic history - Plt stable at this time - Patient with chronic liver disease - Avoid thrombocytopenic toxic drugs Substance abuse - History of heroin use - Methadone outpatient with [facility] in [place] - Continue methadone 20mg as BID - Substance abuse cessation education - Patient visitors restricted - Alcohol cessation counseling Post operation fever - Patient afebrile - No leukocytosis, cough, diarrhea, chills, shortness of breath - UA showing mild leuk est - CXR no acute disease - Urine culture pending - Continue Rocephin GI PPX: protonix DVT ppx: SCDS, lovenox Case and plan reviewed with Dr Harmon <Germán Harmon - Last Filed: 12/26/17 13:37> Objective - Vital Signs/Intake and Output Vital Signs (last 24 hours): Temp Pulse Resp BP Pulse Ox 98.7 F 74 18 135/91 H 97 12/26/17 06:00 12/26/17 06:00 12/26/17 06:00 12/26/17 06:00 12/26/17 06:00 Intake and Output: 12/26/17 12/26/17 06:59 18:59 Intake Total 360 Balance 360 - Medications Medications: Current Medications Albuterol/Ipratropium (Duoneb 3 Mg/0.5 Mg (3 Ml) Ud) 3 ml IH [id number] [facility] Last Admin: 12/26/17 07:51 Dose: Not Given Albuterol/Ipratropium (Duoneb 3 Mg/0.5 Mg (3 Ml) Ud) 3 ml IH Q2H PRN PRN Reason: Shortness of Breath Enoxaparin Sodium (Lovenox) 30 mg SC DAILY [facility] PRN Reason: Protocol Last Admin: 12/26/17 10:18 Dose: 30 mg Famotidine (Pepcid) 20 mg PO 1000,2200 [facility] Last Admin: 12/26/17 10:19 Dose: 20 mg Folic Acid (Folic Acid) 1 mg PO DAILY [facility] Last Admin: 12/26/17 10:18 Dose: 1 mg Ceftriaxone Sodium (Rocephin 1 Gram Ivpb) 1 gm in 100 mls @ 100 mls/hr IVPB DAILY [facility] PRN Reason: Protocol Last Admin: 12/26/17 10:19 Dose: 100 mls/hr Lorazepam (Ativan) 1 mg PO Q6 PRN; Protocol PRN Reason: Anxiety Last Admin: 12/22/17 04:24 Dose: 1 mg Lorazepam (Ativan) 1 mg IM Q6H PRN; Protocol PRN Reason: Anxiety Last Admin: 12/26/17 05:56 Dose: 1 mg Methadone HCl (Methadone) 20 mg PO BID [facility] Last Admin: 12/26/17 10:19 Dose: 20 mg Multivitamins (Thera Tab) 1 tab PO 0800 [facility] Last Admin: 12/26/17 08:44 Dose: 1 tab Oxycodone HCl (Oxycodone Immediate Release Tab) 5 mg PO Q6H PRN PRN Reason: Pain, severe (8-10) Last Admin: 12/24/17 23:07 Dose: 5 mg Polyethylene Glycol (Miralax) 17 gm PO DAILY [facility] Last Admin: 12/26/17 10:19 Dose: 17 gm Propranolol HCl (Inderal) 40 mg PO BID [facility] Last Admin: 12/26/17 10:18 Dose: 40 mg Quetiapine Fumarate (Seroquel) 25 mg PO HS PRN; Protocol PRN Reason: Agitation Last Admin: 12/25/17 23:03 Dose: 25 mg Thiamine HCl (Vitamin B1 Tab) 100 mg PO DAILY [facility] Last Admin: 12/26/17 10:20 Dose: 100 mg Ziprasidone (Geodon Inj) 10 mg IM BID PRN; Protocol PRN Reason: severe agitation/psychosis Last Admin: 12/25/17 13:57 Dose: 10 mg - Labs Labs: 12/26/17 06:30 12/26/17 06:30 PT 16.7 SECONDS (9.4-12.5) H 12/14/17 12:45 INR 1.44 (0.93-1.08) H 12/14/17 12:45 APTT 36.9 Seconds (25.1-36.5) H 12/14/17 12:45 Attending/Attestation - Attestation I have personally seen and examined this patient.: Yes I have fully participated in the care of the patient.: Yes I have reviewed all pertinent clinical information, including history, physical exam and plan: Yes Notes (Text): 12/26/17 13:33 57 year old female with PMH of chronic liver disease, alcohol abuse cirrhosis, HCV, ?seizure disorder, COPD, anxiety, depression, chronic thrombocytopenia, and chronic opiate abuse on methadone who was admitted s/p fall likely secondary to ETOH intoxication. Left arm xray showed anterior dislocation from GN joint and humeral fracture at greater tuberosity. Patient is s/p reduction of dislocated shoulder by orthopedics and also s/p ORIF POD #4. Hospital course was complicated with post-op delirium. Overnight she was again agitated and confused. This morning she is drowsy but alert. She is on seroquel and geodon prn. She is on methadone to bid. Ammonia level is slightly elevated and lactulose was ordered. Will continue to monitor mental status. She is on ceftriaxone also for possible UTI while awaiting Ucx. She was counselled on alcohol cessation. She is on multivitamin, folic acid and thiamine. Thrombocytopenia and transaminitis are chronic and stable, close to baseline. Germán Harmon MD Hospitalist.
[2017-12-27] MEDS: Albuterol-Ipratrop 3 mg / 0.5 (3 ml) UD IH SCH ×2 (02:47→08:05)
[2017-12-27] MEDS: Multivitamin Therapeutic Tab PO SCH (08:01)
[2017-12-27 08:39] LABS: HEMOGLOBIN 12.2 g/dL (12.0-16.0); MEAN CELL VOLUME 96.6 fl (80.0-105.0); MEAN CORPUSCULAR HEMOGLOBIN 31.9 pg (25.0-35.0); MEAN PLATELET VOLUME 10.9 fl (7.0-11.0); RBC 3.83 10^6/uL (3.5-6.1); RED CELL DISTRIBUTION WIDTH 16.3 % (11.5-14.5); WHITE BLOOD COUNT 9.5 10^3/ul (4.5-11.0)
[2017-12-27 08:52] LABS: BLOOD UREA NITROGEN 9 mg/dL (7-21); CALCIUM 8.3 mg/dL (8.4-10.5); GFR AFRICAN-AMERICAN > 60; GFR NON-AFRICAN AMERICAN > 60
--- NOTE | 2017-12-27 09:21 | CP.PCM.DIS ---
<Alyssa Wilson - Last Filed: 12/27/17 17:34> Provider - Provider Date of Admission: 12/14/17 14:30 Attending physician: Germán Harmon MD Consults: Ortho: Dr Hutton Psych: Dr Francis Time Spent in preparation of Discharge (in minutes): 35 Hospital Course - Lab Results Lab Results: Micro Results 12/24/17 14:50 Urine Urine Culture - Final No Growth (<1,000 CFU/ML) Most Recent Lab Values WBC 9.5 10^3/ul (4.5-11.0) D 12/27/17 08:20 RBC 3.83 10^6/uL (3.5-6.1) 12/27/17 08:20 Hgb 12.2 g/dL (12.0-16.0) 12/27/17 08:20 Hct 37.0 % (36.0-48.0) 12/27/17 08:20 MCV 96.6 fl (80.0-105.0) 12/27/17 08:20 MCH 31.9 pg (25.0-35.0) 12/27/17 08:20 MCHC 33.0 g/dl (31.0-37.0) 12/27/17 08:20 RDW 16.3 % (11.5-14.5) H 12/27/17 08:20 Plt Count 104 10^3/uL (120.0-450.0) L 12/27/17 08:20 MPV 10.9 fl (7.0-11.0) 12/27/17 08:20 Gran % 75.8 % (50.0-68.0) H 12/22/17 18:55 Lymph % (Auto) 10.7 % (22.0-35.0) L 12/22/17 18:55 [place] % (Auto) 12.3 % (1.0-6.0) H 12/22/17 18:55 Eos % (Auto) 1.0 % (1.5-5.0) L 12/22/17 18:55 Baso % (Auto) 0.2 % (0.0-3.0) 12/22/17 18:55 Gran # 7.70 (1.4-6.5) H 12/22/17 18:55 Lymph # (Auto) 1.1 (1.2-3.4) L 12/22/17 18:55 [place] # (Auto) 1.3 (0.1-0.6) H 12/22/17 18:55 Eos # (Auto) 0.1 (0.0-0.7) 12/22/17 18:55 Baso # (Auto) 0.02 K/mm3 (0.0-2.0) 12/22/17 18:55 PT 16.7 SECONDS (9.4-12.5) H 12/14/17 12:45 INR 1.44 (0.93-1.08) H 12/14/17 12:45 APTT 36.9 Seconds (25.1-36.5) H 12/14/17 12:45 Sodium 138 mmol/L (132-148) 12/27/17 08:20 Potassium 3.9 mmol/L (3.6-5.0) 12/27/17 08:20 Chloride 103 mmol/L (98-107) 12/27/17 08:20 Carbon Dioxide 24 mmol/L (21-33) 12/27/17 08:20 Anion Gap 14 (10-20) 12/27/17 08:20 BUN 9 mg/dL (7-21) 12/27/17 08:20 Creatinine 0.5 mg/dl (0.7-1.2) L 12/27/17 08:20 Est GFR ( Amer) > 60 12/27/17 08:20 Est GFR (Non-Af Amer) > 60 12/27/17 08:20 Random Glucose 143 mg/dL (70-110) H 12/27/17 08:20 Calcium 8.3 mg/dL (8.4-10.5) L 12/27/17 08:20 Total Bilirubin 2.7 mg/dL (0.2-1.3) H 12/25/17 01:45 AST 72 U/L (14-36) H 12/25/17 01:45 ALT 39 U/L (7-56) 12/25/17 01:45 Alkaline Phosphatase 86 U/L (38-126) 12/25/17 01:45 Ammonia 30 umol/L (9-33) 12/27/17 08:20 Total Protein 7.1 g/dL (5.8-8.3) 12/25/17 01:45 Albumin 2.9 g/dL (3.0-4.8) L 12/25/17 01:45 Globulin 4.2 gm/dL 12/25/17 01:45 Albumin/Globulin Ratio 0.7 (1.1-1.8) L 12/25/17 01:45 Urine Color Light brown (YELLOW) 12/24/17 14:50 Urine Appearance Slight-cloudy (CLEAR) 12/24/17 14:50 Urine pH 7.0 (4.7-8.0) 12/24/17 14:50 Ur Specific [place] 1.020 (1.005-1.035) 12/24/17 14:50 Urine Protein Trace mg/dL (<30 mg/dL) H 12/24/17 14:50 Urine Glucose (UA) 100 mg/dL (NEGATIVE) H 12/24/17 14:50 Urine Ketones Negative mg/dL (NEGATIVE) 12/24/17 14:50 Urine Blood Negative (NEGATIVE) 12/24/17 14:50 Urine Nitrate Negative (NEGATIVE) 12/24/17 14:50 Urine Bilirubin Small (NEGATIVE) H 12/24/17 14:50 Urine Urobilinogen >=8.0 E.U./dL (<1 E.U./dL) 12/24/17 14:50 Ur Leukocyte Esterase Small Drea/uL (NEGATIVE) H 12/24/17 14:50 Urine RBC 0 - 2 /hpf (0-2) 12/24/17 14:50 Urine WBC 5 - 10 /hpf (0-6) 12/24/17 14:50 Ur Epithelial Cells 6 - 8 /hpf (0-5) 12/24/17 14:50 Urine Bacteria Mod (NEG) 12/24/17 14:50 Alcohol, Quantitative 70 mg/dL (0-10) H 12/14/17 13:40 RPR Nonreactive (NONREACTIVE) 12/23/17 09:40 Hepatitis A IgM Ab Negative (NEGATIVE) 12/23/17 09:40 Hep Bs Antigen Negative (NEGATIVE) 12/23/17 09:40 Hep B Core IgM Ab Negative (NEGATIVE) 12/23/17 09:40 Hepatitis C Antibody Reactive (NEGATIVE) 12/23/17 09:40 HIV 1&2 Antibody Screen Negative (NEGATIVE) 12/22/17 18:55 Blood Type A POSITIVE 12/21/17 14:24 Antibody Screen Negative 12/21/17 14:24 Crossmatch See Detail 12/21/17 14:24 BBK History Checked Patient has bt 12/21/17 14:24 - Hospital Course Hospital Course: History of Present Illness: Patient is a 57 year old female with past medical history that includes cirrhosis, HCV, seizure disorder, CKD, COPD, anxiety, depression, HTN, chronic thrombocytopenia, seizure, chronic opiate abuse and esophageal varicies who presented to [facility] ED with fall and left upper extremity pain. Patient presented to [facility] ED s/p fall earlier in the afternoon. Patient reports mechanical fall while going down a set of stairs. Patient reports using hand railing and loosing consciousness and falling with trauma to her left upper extremity and head. Patient reported having difficulty moving her left arm and noticed some bleeding from her left side of her head secondary to cut above left eye secondary to fall. Patient reports drinking earlier in the morning at 3 am on day of presentation. Patient admits to recent heroin use and currently follows a methadone clinic in [facility]. Patient denies previous loss of consciousness. Patient denies neurological deficit, chest pain, shortness of breath, abdominal pain, leg pain. Patient denies fever, chills, nausea, vomiting. ED imaging: In ED patient had Head CT showing no acute intracranial abnormalities. CT Cervical spine showing asymmetry in the supraclavicular -scalene region/ thoracic inlet on the left which may represent adenopathy. Please refer to axial series 2, images 55-71. The findings are confirmed on the coronal images. Correlation with physical examination is advised and if clinically indicated contrast-enhanced CT of the thorax is recommended follow-up procedure. The findings were not apparent on a remote CT of the thorax performed 10/29/2014. CT lumbar spine showing No acute findings with respect to the cervical spine. Left supraclavicular/ scalene mass, follow-up advised as described above including contrast-enhanced CT of the neck, thoracic inlet region. Correlation with physical examination. Discs/Spinal canal/neural foramina showed no acute fracture, spondylolysis or spondylolisthesis, multilevel degenerative disc diseases, worse at L4-L5 with severe b/l neural formainal narrowing and mild spinal canal stenosis. Hospital Course: Patient was admitted s/p fall likely secondary to ETOH intoxication. Left arm xray showed anterior dislocation from GN joint and humeral fracture at the greater tuberosity. Patient initially underwent closed reduction of dislocated shoulder by orthopedics. Left upper extremity CT showed comminuted fracture of the humeral head with associated large joint effusion, no evidence of GH dislocation, no evidence of bankart fracture. Patient subsequently underwent ORIF with Ortho. PT evaluated the patient and is recommending [facility] for disposition. For alcohol withdrawal, patient was on Ativan. She was counselled on alcohol cessation. She was on multivitamin, folic acid, and thiamine. Patient with thrombocytopenia and transaminitis that are chronic and stable. Hospital course was complicated with post-op delirium. Likely mulifactorial. This could have been due to UTI vs Medication induced. Patient was seen by psych. She was on seroquel and geodon prn. She was also started on Ceftriaxone for possible UTI. Urine culture showed no growth. Methadone was changed to bid. Ammonia level is slightly elevated and lactulose was given with improvement. On day of discharge, patient was doing well, offered no complaints. Pain was controlled. Patient to be discharged to Rehab. Discharge Exam - Additional Findings Additional findings: - Additional Findings Additional findings: - Constitutional Appears: No Acute Distress - Head Exam Head Exam: ATRAUMATIC, NORMAL INSPECTION, NORMOCEPHALIC - Eye Exam Eye Exam: EOMI, PERRL - Respiratory Exam Respiratory Exam: Clear to Ausculation Bilateral, NORMAL BREATHING PATTERN. absent: Rales, Rhonchi, Wheezes - Cardiovascular Exam Cardiovascular Exam: REGULAR RHYTHM, +S1, +S2 - GI/Abdominal Exam GI & Abdominal Exam: Soft, Normal Bowel Sounds. absent: Guarding, Rigid, Tenderness - Extremities Exam Extremities Exam: Normal Capillary Refill. absent: Pedal Edema Additional comments: Left upper extremity with bandage clean/dry/intact, bruising present on left upper shoulder, left upper extremity immobilized in sling, neuromuscular intact - Neurological Exam Neurological Exam: Alert Additional comments: Patient somnolent on exam, motor and sensory grossly intact, able to follow simple commands, moves all four extremities - Psychiatric Exam Additional comments: AAOx3 - Skin Skin Exam: Dry, Warm Discharge Plan - Discharge Medications Prescriptions: Cephalexin [cephalexin] 500 mg PO Q12H #6 cap Folic Acid 1 mg PO DAILY #30 tab Multivitamin Therapeutic Tab [Thera Tab] 1 tab PO 0800 #30 tab QUEtiapine [Seroquel] 25 mg PO HS PRN #30 tab PRN Reason: Agitation Thiamine [Vitamin B1 Tab] 100 mg PO DAILY #30 tab - Follow Up Plan Condition: STABLE Disposition: HOME/ ROUTINE Instructions: Alcohol Use - When Is Drinking a Problem?, Shoulder Dislocation ( DC), Alcohol Abuse and Alcoholism (DC) Additional Instructions: 1. Please wear sling for 4-6 weeks 2. Take medications as prescribed to you 3. Continue with rehab for shoulder Discharge to [facility] acute rehabilitation facility. <Germán Harmon - Last Filed: 12/27/17 17:45> Provider - Provider Date of Admission: 12/14/17 14:30 Attending physician: Germán Harmon MD Hospital Course - Lab Results Lab Results: Micro Results 12/24/17 14:50 Urine Urine Culture - Final No Growth (<1,000 CFU/ML) Most Recent Lab Values WBC 9.5 10^3/ul (4.5-11.0) D 12/27/17 08:20 RBC 3.83 10^6/uL (3.5-6.1) 12/27/17 08:20 Hgb 12.2 g/dL (12.0-16.0) 12/27/17 08:20 Hct 37.0 % (36.0-48.0) 12/27/17 08:20 MCV 96.6 fl (80.0-105.0) 12/27/17 08:20 MCH 31.9 pg (25.0-35.0) 12/27/17 08:20 MCHC 33.0 g/dl (31.0-37.0) 12/27/17 08:20 RDW 16.3 % (11.5-14.5) H 12/27/17 08:20 Plt Count 104 10^3/uL (120.0-450.0) L 12/27/17 08:20 MPV 10.9 fl (7.0-11.0) 12/27/17 08:20 Gran % 75.8 % (50.0-68.0) H 12/22/17 18:55 Lymph % (Auto) 10.7 % (22.0-35.0) L 12/22/17 18:55 [place] % (Auto) 12.3 % (1.0-6.0) H 12/22/17 18:55 Eos % (Auto) 1.0 % (1.5-5.0) L 12/22/17 18:55 Baso % (Auto) 0.2 % (0.0-3.0) 12/22/17 18:55 Gran # 7.70 (1.4-6.5) H 12/22/17 18:55 Lymph # (Auto) 1.1 (1.2-3.4) L 12/22/17 18:55 [place] # (Auto) 1.3 (0.1-0.6) H 12/22/17 18:55 Eos # (Auto) 0.1 (0.0-0.7) 12/22/17 18:55 Baso # (Auto) 0.02 K/mm3 (0.0-2.0) 12/22/17 18:55 PT 16.7 SECONDS (9.4-12.5) H 12/14/17 12:45 INR 1.44 (0.93-1.08) H 12/14/17 12:45 APTT 36.9 Seconds (25.1-36.5) H 12/14/17 12:45 Sodium 138 mmol/L (132-148) 12/27/17 08:20 Potassium 3.9 mmol/L (3.6-5.0) 12/27/17 08:20 Chloride 103 mmol/L (98-107) 12/27/17 08:20 Carbon Dioxide 24 mmol/L (21-33) 12/27/17 08:20 Anion Gap 14 (10-20) 12/27/17 08:20 BUN 9 mg/dL (7-21) 12/27/17 08:20 Creatinine 0.5 mg/dl (0.7-1.2) L 12/27/17 08:20 Est GFR ( Amer) > 60 12/27/17 08:20 Est GFR (Non-Af Amer) > 60 12/27/17 08:20 Random Glucose 143 mg/dL (70-110) H 12/27/17 08:20 Calcium 8.3 mg/dL (8.4-10.5) L 12/27/17 08:20 Total Bilirubin 2.7 mg/dL (0.2-1.3) H 12/25/17 01:45 AST 72 U/L (14-36) H 12/25/17 01:45 ALT 39 U/L (7-56) 12/25/17 01:45 Alkaline Phosphatase 86 U/L (38-126) 12/25/17 01:45 Ammonia 30 umol/L (9-33) 12/27/17 08:20 Total Protein 7.1 g/dL (5.8-8.3) 12/25/17 01:45 Albumin 2.9 g/dL (3.0-4.8) L 12/25/17 01:45 Globulin 4.2 gm/dL 12/25/17 01:45 Albumin/Globulin Ratio 0.7 (1.1-1.8) L 12/25/17 01:45 Urine Color Light brown (YELLOW) 12/24/17 14:50 Urine Appearance Slight-cloudy (CLEAR) 12/24/17 14:50 Urine pH 7.0 (4.7-8.0) 12/24/17 14:50 Ur Specific [place] 1.020 (1.005-1.035) 12/24/17 14:50 Urine Protein Trace mg/dL (<30 mg/dL) H 12/24/17 14:50 Urine Glucose (UA) 100 mg/dL (NEGATIVE) H 12/24/17 14:50 Urine Ketones Negative mg/dL (NEGATIVE) 12/24/17 14:50 Urine Blood Negative (NEGATIVE) 12/24/17 14:50 Urine Nitrate Negative (NEGATIVE) 12/24/17 14:50 Urine Bilirubin Small (NEGATIVE) H 12/24/17 14:50 Urine Urobilinogen >=8.0 E.U./dL (<1 E.U./dL) 12/24/17 14:50 Ur Leukocyte Esterase Small Drea/uL (NEGATIVE) H 12/24/17 14:50 Urine RBC 0 - 2 /hpf (0-2) 12/24/17 14:50 Urine WBC 5 - 10 /hpf (0-6) 12/24/17 14:50 Ur Epithelial Cells 6 - 8 /hpf (0-5) 12/24/17 14:50 Urine Bacteria Mod (NEG) 12/24/17 14:50 Alcohol, Quantitative 70 mg/dL (0-10) H 12/14/17 13:40 RPR Nonreactive (NONREACTIVE) 12/23/17 09:40 Hepatitis A IgM Ab Negative (NEGATIVE) 12/23/17 09:40 Hep Bs Antigen Negative (NEGATIVE) 12/23/17 09:40 Hep B Core IgM Ab Negative (NEGATIVE) 12/23/17 09:40 Hepatitis C Antibody Reactive (NEGATIVE) 12/23/17 09:40 HIV 1&2 Antibody Screen Negative (NEGATIVE) 12/22/17 18:55 Blood Type A POSITIVE 12/21/17 14:24 Antibody Screen Negative 12/21/17 14:24 Crossmatch See Detail 12/21/17 14:24 BBK History Checked Patient has bt 12/21/17 14:24 Attending/Attestation - Attestation I have personally seen and examined this patient.: Yes I have fully participated in the care of the patient.: Yes I have reviewed all pertinent clinical information, including history, physical exam and plan: Yes Notes (Text): 12/27/17 17:44 57 year old female with PMH of chronic liver disease, alcohol abuse cirrhosis, HCV, ?seizure disorder, COPD, anxiety, depression, chronic thrombocytopenia, and chronic opiate abuse on methadone who was admitted s/p fall likely secondary to ETOH intoxication. Left arm xray showed anterior dislocation from GN joint and humeral fracture at greater tuberosity. Patient is s/p reduction of dislocated shoulder by orthopedics and also s/p ORIF POD #5. Hospital course was complicated with post-op delirium, likely multifactorial. She was on seroquel and geodon prn. She is on methadone to bid. Her mental status improved; no acute events overnight. She was on antibiotics for UTI. She was counselled on alcohol cessation. She is on multivitamin, folic acid and thiamine. Thrombocytopenia and transaminitis were chronic and stable, close to baseline. Patient is discharged to rehab. Follow up with pmd and ortho. Counselled on alcohol abstinence. Germán Harmon MD Hospitalist.
[2017-12-27] MEDS: Enoxaparin 30 mg Syringe SC SCH (09:53)
[2017-12-27] MEDS: cefTRIAXone 1 gm 1 GM/100 ML BAG IVPB SCH (09:54)
[2017-12-27] MEDS: POLYETHYLENE GLYCOL 3350 17 GM/Dose PACKET PO SCH (09:55)
[2017-12-27 10:03] VITALS: PULSE 76
[2017-12-27 11:12] VITALS: RESP 20; TEMP 98.5
[2017-12-27 17:04] VITALS: BP 158/90
--- NOTE | 2017-12-28 08:33 | PN ---
DATE: 12/26/2017 LOCATION: She is presently in room 362, bed 2. She underwent left shoulder surgery four days ago for displaced compressive fracture from a dislocation of shoulder backup on 12/15/2017. The wound is dry and she still has altered mental status from her drug addiction and she is going to a rehab hospital soon. They can take the sutures out in approximately 10 days. Sutures of the wound to be dressed every other day or every day and they do not recall if it does show signs of infection and she would need a sling and she does not keep the slung on so we have to hope for the best as she does not re-dislocate her left shoulder as she does not cooperate at all and hope for the best to get the fracture healed in two months. She will have to have restrictive range of motion for 2 months of that left shoulder. Spenser Ndiaye DO MTDKourtney
== END 2017-12-27 18:00 | DRG 218 ==
LOC: ED 10:27 → ERH 14:30 → 3RNO 17:28 → 3RSO 12-16 09:18 → 3RNO 12-16 15:14
PROVIDERS: ADMIT Internal Medicine; ATTEND Internal Medicine
PROC: 0RSKXZZ Reposition Left Shoulder Joint, External Approach (ICD-10-PCS; 2017-12-14)
PROC: 0PSD04Z Reposition Left Humeral Head with Internal Fixation Device, Open Approach (ICD-10-PCS; principal; 2017-12-22 14:00)
DX: S42.252A Displaced fracture of greater tuberosity of left humerus, initial encounter for closed fracture (principal); B19.20 Unspecified viral hepatitis C without hepatic coma; D69.6 Thrombocytopenia, unspecified; F10.239 Alcohol dependence with withdrawal, unspecified; F11.20 Opioid dependence, uncomplicated; J44.9 Chronic obstructive pulmonary disease, unspecified; K74.60 Unspecified cirrhosis of liver; N39.0 Urinary tract infection, site not specified; N18.9 Chronic kidney disease, unspecified; K70.30 Alcoholic cirrhosis of liver without ascites; S43.015A Anterior dislocation of left humerus, initial encounter; W10.9XXA Fall (on) (from) unspecified stairs and steps, initial encounter; Y93.01 Activity, walking, marching and hiking; F05 Delirium due to known physiological condition; F32.89 Other specified depressive episodes; F41.9 Anxiety disorder, unspecified; G40.909 Epilepsy, unspecified, not intractable, without status epilepticus; I12.9 Hypertensive chronic kidney disease with stage 1 through stage 4 chronic kidney disease, or unspecified chronic kidney disease; Z82.49 Family history of ischemic heart disease and other diseases of the circulatory system; I85.00 Esophageal varices without bleeding; K27.9 Peptic ulcer, site unspecified, unspecified as acute or chronic, without hemorrhage or perforation; M48.061 Spinal stenosis, lumbar region without neurogenic claudication; S01.112A Laceration without foreign body of left eyelid and periocular area, initial encounter; Z79.899 Other long term (current) drug therapy; Z86.73 Personal history of transient ischemic attack (TIA), and cerebral infarction without residual deficits; Z87.11 Personal history of peptic ulcer disease; F17.210 Nicotine dependence, cigarettes, uncomplicated; R40.2412 Glasgow coma scale score 13-15, at arrival to emergency department; Y90.3 Blood alcohol level of 60-79 mg/100 ml

== ENCOUNTER 2018-05-29 15:08 | Emergency (ER) | payer MEDICAID, OTHER ==
[2018-05-29 15:10] VITALS: BMI 26.6
--- NOTE | 2018-05-29 15:48 | ED PDOC ---
Arrival/HPI - General Chief Complaint: Substance Abuse Time Seen by Provider: 05/29/18 15:11 Historian: Patient, EMS - History of Present Illness Time/Duration: Prior to Arrival Symptom Onset: Sudden Associated Symptoms (Text): 05/29/18 15:45 Found outside by EMS lethargic and wandering around. Patient reports she takes methadone, but denies other drugs. She was drinking early this morning. Denies smoking. She is mildly somnolent but easily aroused. She denies suicidal or homicidal ideation, but she is depressed. There was a recent psychiatric admission. She reports she is not taking her Lexapro. Past Medical History - Infectious Disease Hx of Infectious Diseases: None - Tetanus Immunization Tetanus Immunization: Unknown - Cardiac Hx Cardiac Disorders: Yes Hx Hypertension: Yes - Pulmonary Hx Tuberculosis: No - Neurological HX Cerebrovascular Accident: No Hx Seizures: Yes - HEENT Hx HEENT Disorder: Yes (USES CONTACTS AND GLASSES) - Renal Hx Renal Disorder: Yes Hx Kidney Stones: No - Endocrine/Metabolic Hx Endocrine Disorders: No Hx Hyperthyroidism: No Hx Hypothyroidism: No - Hematological/Oncological Hx Cancer: No - Integumentary Hx Dermatological Disorder: No - Musculoskeletal/Rheumatological Hx Musculoskeletal Disorders: Yes Hx Arthritis: No Hx Falls: Yes Hx Fractures: Yes (LEFT SHOULDER FX WITH DISLOCATION.) Hx Osteoporosis: No - Gastrointestinal Hx Gastrointestinal Disorders: No Hx Crohn's Disease: No Hx Diverticulitis: No Hx Gall Bladder Disease: No Hx Pancreatitis: No - Genitourinary/Gynecological Hx Sexually Transmitted Diseases: No - Psychiatric Hx Psychophysiologic Disorder: Yes Hx Anxiety: Yes (ALCOHOL USE) Hx Bipolar Disorder: No Hx Depression: Yes Hx Post Traumatic Stress Disorder: No Hx Schizophrenia: No Hx Substance Use: Yes - Past Surgical History Past Surgical History: No Previous - Surgical History Hx Appendectomy: No Hx Cholecystectomy: No Hx Coronary Stent: No Hx Tonsillectomy: Yes - Anesthesia Hx Anesthesia: Yes Hx Anesthesia Reactions: No Hx Malignant Hyperthermia: No - Suicidal Assessment Feels Threatened In Home Enviroment: No Family/Social History - Physician Review Nursing Documentation Reviewed: Yes Family/Social History: Unknown Family HX Smoking Status: Former Smoker Hx Alcohol Use: Yes Frequency of alcohol use: Daily Hx Substance Use: Yes Substance used: methadone Hx Substance Use Treatment: Yes (methadone) Allergies/Home Meds Allergies/Adverse Reactions: Allergies No Known Allergies Allergy (Verified 05/29/18 15:14) Home Medications: Home Meds Medication Instructions Recorded Confirmed Propranolol [Inderal] 40 mg PO BID 07/24/17 12/14/17 Review of Systems - Physician Review All systems were reviewed & negative as marked: Yes - Review of Systems Constitutional: absent: Fatigue, Fevers Respiratory: absent: SOB, Cough, Wheezing Cardiovascular: absent: Chest Pain, Palpitations, Syncope Gastrointestinal: absent: Abdominal Pain, Diarrhea, Nausea, Vomiting Neurological: absent: Headache, Dizziness, Focal Weakness Physical Exam Temperature: Afebrile Blood Pressure: Hypotensive Pulse: Regular Respiratory Rate: Normal Appearance: Positive for: Well-Appearing, Non-Toxic, Comfortable Pain Distress: None Mental Status: Positive for: other (somnolent, but oriented 3) - Systems Exam Head: Present: Atraumatic, Normocephalic Pupils: Present: PERRL Extroacular Muscles: Present: EOMI Conjunctiva: Present: Normal Mouth: Present: Moist Mucous Membranes Pharnyx: No: ERYTHEMA, EXUDATE, TONSILS ENLARGED Neck: Present: Normal Range of Motion Respiratory/Chest: Present: Clear to Auscultation, Good Air Exchange, Decreased Breath Sounds. No: Respiratory Distress, Accessory Muscle Use Cardiovascular: Present: Regular Rate and Rhythm, Normal S1, S2. No: Murmurs Abdomen: No: Tenderness, Distention, Peritoneal Signs, Rebound, Guarding Upper Extremity: Present: Normal Inspection. No: Cyanosis, Edema Lower Extremity: Present: Normal Inspection. No: Edema Neurological: Present: GCS=15, CN II-XII Intact, Speech Normal, Motor Func Grossly Intact, Normal Sensory Function, Normal Cerebellar Funct Skin: Present: Warm, Dry, Normal Color. No: Rashes Psychiatric: Present: Alert, Oriented x 3, Normal Insight, Normal Concentration. No: Anxious, Agitated, Depressed Mood, Suicidal Ideation, Homicidal Ideation, Delusional, Hallucinations Medical Decision Making ED Course and Treatment: 05/29/18 15:48 EKG shows normal sinus rhythm rate approximately 70 with a left axis and poor R- wave progression with no acute ST or T-wave changes 05/29/18 17:50 Patient does have alcohol onboard and opiates in her drug screen. Crisis has been called. 05/29/18 18:18 Patient will be endorsed to the night emergency department physician waiting for crisis evaluation and final disposition. - RAD Interpretation Radiology Orders: 05/29/18 15:17 CHEST PORTABLE [RAD] Stat X-ray chest one view as read by the radiologist shows no acute findings. Reconciliation Accountant: Radiologist Disposition/Present on Arrival - Present on Arrival Any Indicators Present on Arrival: No History of DVT/PE: No History of Uncontrolled Diabetes: No Urinary Catheter: No History of Decub. Ulcer: No History Surgical Site Infection Following: None - Disposition Have Diagnosis and Disposition been Completed?: Yes Diagnosis: Depression, EtOH dependence, Substance abuse Disposition Time: 18:19 Condition: GOOD Forms: [facility] (Indian)
--- NOTE | 2018-05-29 16:08 | RAD ---
Date of service: 05/29/2018 HISTORY: PES COMPARISON: 12/24/2017 FINDINGS: LUNGS: No active pulmonary disease. PLEURA: No significant pleural effusion identified, no pneumothorax apparent. CARDIOVASCULAR: No radiographic findings to suggest acute or significant cardiovascular disease. OSSEOUS STRUCTURES: No significant abnormalities. VISUALIZED UPPER ABDOMEN: Normal. OTHER FINDINGS: None. IMPRESSION: No active disease. No significant interval change compared to the prior examination(s).
[2018-05-29 16:30] LABS: BASO # 0.03 K/mm3 (0.0-2.0); BASO % 0.5 % (0.0-3.0); EOS # 0.2 (0.0-0.7); EOS % 3.1 % (1.5-5.0); GRAN # 3.19 (1.4-6.5); GRAN % 57.9 % (50.0-68.0); LYMPH # 1.5 (1.2-3.4); LYMPH % 26.4 % (22.0-35.0); MEAN CELL VOLUME 91.4 fl (80.0-105.0); MEAN CORPUSCULAR HEMOGLOBIN 30.7 pg (25.0-35.0); MEAN CORPUSCULAR HGB CONC 33.6 g/dl (31.0-37.0); MEAN PLATELET VOLUME 12.2 fl (7.0-11.0); MONO # 0.7 (0.1-0.6); MONO % 12.1 % (1.0-6.0); RBC 4.88 10^6/uL (3.5-6.1); RED CELL DISTRIBUTION WIDTH 14.2 % (11.5-14.5); WHITE BLOOD COUNT 5.5 10^3/ul (4.5-11.0)
[2018-05-29 16:32] VITALS: RESP 18; TEMP 98.4
[2018-05-29 16:38] LABS: ACETAMINOPHEN < 10.0 ug/ml (10.0-20.0); SALICYLATE < 1 mg/dL (2.0-20.0)
[2018-05-29 16:39] LABS: ALB/GLOB RATIO 0.7 (1.1-1.8)
[2018-05-29 16:41] LABS: ALBUMIN 3.8 g/dL (3.0-4.8); ALT/SGPT 22 U/L (7-56); AST/SGOT 94 U/L (14-36); BLOOD UREA NITROGEN 9 mg/dL (7-21); GFR NON-AFRICAN AMERICAN > 60
[2018-05-29 16:42] LABS: PH,URINE 6.5 (4.7-8.0); URINE BILIRUBIN NEGATIVE (NEGATIVE); URINE BLOOD NEGATIVE (NEGATIVE); URINE GLUCOSE (UA) NEGATIVE (NEGATIVE); URINE LEUKOCYTE ESTERASE NEGATIVE Leu/uL (NEGATIVE); URINE PROTEIN NEGATIVE mg/dL (<30 mg/dL); URINE UROBILINOGEN 0.2 E.U./dL (<1 E.U./dL)
[2018-05-29 16:46] LABS: URINE APPEARANCE CLEAR (CLEAR); URINE COLOR YELLOW (YELLOW)
[2018-05-29 17:26] LABS: BARBITURATES, UR NEGATIVE (NEGATIVE); BENZODIAZEPINES, UR NEGATIVE (NEGATIVE); OPIATES, UR POSITIVE (NEGATIVE); PHENCYCLIDINE, UR NEGATIVE (NEGATIVE)
[2018-05-29 19:23] VITALS: O2SAT 95
--- NOTE | 2018-05-29 20:30 | ED PDOC ---
Physical Exam Vital Signs Reviewed: Yes Vital Signs Temp Pulse Resp BP Pulse Ox 05/29/18 19:22 65 18 97/72 L 95 05/29/18 17:18 67 18 80/50 L 92 L 05/29/18 16:32 71 18 82/66 L 95 05/29/18 15:13 98.4 F 81 18 65/41 L 93 L Temperature: Afebrile Blood Pressure: Hypotensive Pulse: Regular Respiratory Rate: Normal Appearance: Positive for: Well-Appearing, Non-Toxic, Comfortable Pain Distress: None Mental Status: Positive for: Alert and Oriented X 3 Medical Decision Making ED Course and Treatment: 05/29/18 20:29 Patient was endorsed to me by Dr. Matt. 05/29/18 20:59 patient seen by myself. patient is awake and alert. patient reports left shoulder pain which has been chronic and she reports a hx of rotator cuff surgery. patient also reports left sided low back pain which is exacerbated with body position, leaning forward. There is no radiation of the pain down the left buttock or leg and the pain is focal to the left SI joint area. Patient is clinically sober at this time. Patient has been seen by PES and is awaiting mental health screening. 05/29/18 22:58 patient seen by crisis and cleared for discharge and outpt tx. at this time, vitals normalized, patient does not exhibit acute withdrawal symptoms and appears stable for discharge. 05/29/18 23:01 - Lab Interpretations Narrative Lab Interpretation (Text): 05/29/18 23:02 tibili chroniclaly elevated, mild transaminitis, elevated ammonia but patient is not encephalopathic at this time, platelet chronically low, glucose low and will recheck prior to dicsharge. 05/29/18 23:03 Lab Results: 05/29/18 16:00 05/29/18 16:00 Lab Results 05/29/18 16:37: Urine Opiates Screen Positive H, Urine Methadone Screen Negative, Ur Barbiturates Screen Negative, Ur Phencyclidine Scrn Negative, Ur Amphetamines Screen Negative, U Benzodiazepines Scrn Negative, U Oth Cocaine Metabols Negative, U Cannabinoids Screen Negative 05/29/18 16:37: Urine Color Yellow, Urine Appearance Clear, Urine pH 6.5, Ur Specific [place] <= 1.005, Urine Protein Negative, Urine Glucose (UA) Negative, Urine Ketones Negative, Urine Blood Negative, Urine Nitrate Negative, Urine Bilirubin Negative, Urine Urobilinogen 0.2, Ur Leukocyte Esterase Negative 05/29/18 16:00: Ammonia 112 H 05/29/18 16:00: Alcohol, Quantitative 107 H 05/29/18 16:00: Salicylates < 1 L, Acetaminophen < 10.0 L 05/29/18 16:00: Sodium 143, Potassium 4.8, Chloride 110 H, Carbon Dioxide 22, Anion Gap 16, BUN 9, Creatinine 0.8, Est GFR ( Amer) > 60, Est GFR (Non- Af Amer) > 60, Random Glucose 65 L, Calcium 9.0, Magnesium 1.6 L, Total Bilirubin 1.6 H, AST 94 H D, ALT 22, Alkaline Phosphatase 139 H, Total Creatine Kinase 50, Total Protein 9.1 H, Albumin 3.8, Globulin 5.2, Albumin/Globulin Ratio 0.7 L 05/29/18 16:00: WBC 5.5 D, RBC 4.88, Hgb 15.0 D, Hct 44.6, MCV 91.4 D, MCH 30.7, MCHC 33.6, RDW 14.2, Plt Count 83 L, MPV 12.2 H, Gran % 57.9, Lymph % (Auto) 26.4, [place] % (Auto) 12.1 H, Eos % (Auto) 3.1, Baso % (Auto) 0.5, Gran # 3.19, Lymph # (Auto) 1.5, [place] # (Auto) 0.7 H, Eos # (Auto) 0.2, Baso # (Auto) 0.03 - RAD Interpretation Radiology Orders: 05/29/18 15:17 CHEST PORTABLE [RAD] Stat - Scribe Statement The provider has reviewed the documentation as recorded by the Alyssa Darling Provider Scribe Attestation: All medical record entries made by the Scribe were at my direction and personally dictated by me. I have reviewed the chart and agree that the record accurately reflects my personal performance of the history, physical exam, medical decision making, and the department course for this patient. I have also personally directed, reviewed, and agree with the discharge instructions and disposition. Disposition/Present on Arrival - Present on Arrival Any Indicators Present on Arrival: No History of DVT/PE: No History of Uncontrolled Diabetes: No Urinary Catheter: No History of Decub. Ulcer: No History Surgical Site Infection Following: None - Disposition Have Diagnosis and Disposition been Completed?: Yes Diagnosis: Depression, EtOH dependence, Substance abuse Disposition: HOME/ ROUTINE Disposition Time: 23:00 Patient Plan: Discharge Patient Problems: Current Active Problems Problem Status Onset EtOH dependence Acute Depression Acute Substance abuse Acute Condition: GOOD Discharge Instructions (ExitCare): Drug Abuse and Drug Addiction (DC) Additional Instructions: Follow up with a primary c are doctor as soon as possible. TRISTA PRUITT, thank you for letting us take care of you today. Your provider was Dr. Anjum Crowe and you were treated for SUBSTANCE ABUSE. The emergency medical care you received today was directed at your acute symptoms. If you were prescribed any medication, please fill it and take as directed. It may take several days for your symptoms to resolve. Return to the Emergency Department if your symptoms worsen, do not improve, or if you have any other problems. Please contact your doctor or call one of the physicians/clinics you have been referred to that are listed on the Patient Visit Information form that is included in your discharge packet. Bring any paperwork you were given at discharge with you along with any medications you are taking to your follow up visit. Our treatment cannot replace ongoing medical care by a primary care provider outside of the emergency department. Thank you for allowing the [facility] team to be part of your care today. If you had an X-Ray or CT scan: A Radiologist will review the ED reading if any change in treatment is needed we will contact you. If you had a blood, urine, or wound culture: It will take several days for the results, if any change in treatment is needed we will contact you. If you had an STI test: It will take 48 hours for the results. Please call after 1 week if you have not heard back. Referrals: [facility] [Outside] - Follow up with primary Thania Jones MD [Medical Doctor] - Follow up with primary Forms: [employer] ([place])
[2018-05-29 22:57] VITALS: BP 107/71
[2018-05-30 00:47] VITALS: PULSE 67
--- NOTE | 2018-05-30 09:10 | CARD ---
APPROVED REPORT Date of service: 05/29/2018 EKG Measurement Heart [id number] <Conclusion> Normal sinus rhythm Left axis deviation Q in lll PRWP NSSTW changes Prolonged QTC No change
== END 2018-05-29 23:16 | disposition home or self-care (01) ==
LOC: ED 15:08
DX: F32.9 Major depressive disorder, single episode, unspecified (principal); F19.10 Other psychoactive substance abuse, uncomplicated; F10.20 Alcohol dependence, uncomplicated; Y90.5 Blood alcohol level of 100-119 mg/100 ml; I10 Essential (primary) hypertension; Z87.891 Personal history of nicotine dependence